=== PATIENT | male | born 1955 | race Caucasian/White ===

== ENCOUNTER 2019-12-21 08:16 | Outpatient (CLI) | payer MEDICARE, SELFPAY ==
[2019-12-21 08:49] LABS: Hemoglobin 14.2 g/dL (14.0-18.0); Mean Corpuscular HGB Conc 33.8 g/dl (32-36); Mean Corpuscular Hemoglobin 29.4 pg (26-34); Mean Platelet Volume 10.6 fl (7.4-10.4); Platelet Count Result 298 k/mm3 (150-375); Red Blood Count 4.83 M/mm3 (4.6-6.20); Red Cell Distribution Width 13.3 % (11.5-14.5); White Blood Count 8.3 K/mm3 (4.5-10.0)
[2019-12-21 09:01] LABS: Hemoglobin A1C 5.8 % (<5.7)
[2019-12-21 09:16] LABS: LDL Cholesterol Direct 130 mg/dL
[2019-12-21 09:24] LABS: Alanine Aminotransferase 19 U/L (4-50); Albumin Level 4.3 g/dL (3.5-5.1); Alkaline Phosphatase 56 U/L (38-126); Aspartate Amino Transferase 28 U/L (17-59); Bilirubin,Total 0.4 mg/dL (0.2-1.3); Blood Urea Nitrogen 26 mg/dL (9-20); Carbon Dioxide 25 mmol/L (22-30); Chloride 102 mmol/L (98-107); Cholesterol 212 mg/dL (0-200); Estimated Glomerular Filt Rate > 60; Glucose 117 mg/dL (75-110); HDL Direct 39 mg/dL; Potassium 4.6 mmol/L (3.4-5.0); Sodium 138 mmol/L (137-145); Triglycerides 216 mg/dL (<150)
== END 2019-12-21 08:17 | disposition home or self-care (01) ==
PROVIDERS: PCP Family Medicine; Visit Provider Family Medicine
DX: E11.9 Type 2 diabetes mellitus without complications (principal); I10 Essential (primary) hypertension; Z13.220 Encounter for screening for lipoid disorders; M19.90 Unspecified osteoarthritis, unspecified site
CPT/HCPCS: 36415; 80053; 80061; 83036; 85027

== ENCOUNTER 2020-06-07 12:09 | Outpatient (CLI) | payer MEDICARE, SELFPAY ==
--- NOTE | ~2020-06-07 | XR_ITS ---
EXAMINATION: XR chest 2V DATE: 06/07/2020 12:29 INDICATION: Shortness of breath. TECHNIQUE: PA and lateral views of the chest were obtained. COMPARISON: None FINDINGS: The lungs are clear with no focal airspace opacities, pulmonary edema, pleural effusion or pneumothor ax. The cardiomediastinal silhouette is normal. There are bridging osteophytes at multiple levels in the lower thoracic spine, consistent with diffuse idiopathic skeletal hyperostosis (DISH). IMPRESSION: 1. No acute cardiopulmonary disease. Reviewed, dictated and finalized at location A.
== END 2020-06-07 12:10 | disposition home or self-care (01) ==
PROVIDERS: PCP Family Medicine; Visit Provider Family Medicine
DX: R06.02 Shortness of breath (principal)
CPT/HCPCS: 71046

== ENCOUNTER 2020-07-21 09:35 | Outpatient (CLI) | payer MEDICARE, SELFPAY ==
[2020-07-21 10:11] LABS: Basophils Percent Auto 0.3 % (0.2-1.2); Eosinophils Absolute Auto 0.2 K/mm3 (0-0.3); Eosinophils Percent Auto 2.3 % (0-4.4); Hematocrit 38.1 % (42.0-52.0); Hemoglobin 12.1 g/dL (14.0-18.0); Immature Granulocyte Absolute 0.03 K/mm3 (0.00-0.031); Immature Granulocyte Percent A 0.3 % (0-0.5); Lymphocytes Absolute Auto 2.92 K/mm3 (0.9-3.2); Lymphocytes Percent Auto 28.1 % (18.3-44.2); Mean Corpuscular HGB Conc 31.8 g/dl (32-36); Mean Corpuscular Hemoglobin 26.2 pg (26-34); Mean Corpuscular Volume 82.5 fl (80-100); Mean Platelet Volume 10.7 fl (7.4-10.4); Monocytes Percent Auto 9.9 % (2.6-8.5); Neutrophils Absolute Auto 6.1 K/mm3 (1.3-6.7); Neutrophils Percent Auto 59.1 % (45.5-73.1); Platelet Count Result 340 k/mm3 (150-375); Red Blood Count 4.62 M/mm3 (4.6-6.20); Red Cell Distribution Width 14.4 % (11.5-14.5); White Blood Count 10.4 K/mm3 (4.5-10.0)
[2020-07-21 10:19] LABS: Alanine Aminotransferase 19 U/L (4-50); Albumin Level 4.5 g/dL (3.5-5.1); Alkaline Phosphatase 70 U/L (38-126); Anion Gap 12 mmol/L (8-16); Aspartate Amino Transferase 26 U/L (17-59); Bilirubin,Total 0.4 mg/dL (0.2-1.3); Blood Urea Nitrogen 17 mg/dL (9-20); Calcium 9.7 mg/dL (8.4-10.2); Carbon Dioxide 26 mmol/L (22-30); Chloride 106 mmol/L (98-107); Estimated Glomerular Filt Rate > 60; Glucose 102 mg/dL (75-110); Potassium 4.7 mmol/L (3.4-5.0); Sodium 144 mmol/L (137-145); Uric Acid 6.7 mg/dL (3.5-8.5)
[2020-07-21 10:29] LABS: Hemoglobin A1C 5.8 % (<5.7)
== END 2020-07-21 09:36 | disposition home or self-care (01) ==
LOC: ANHLAB 09:38
PROVIDERS: PCP Family Medicine; Visit Provider Physician Assistant
DX: M19.90 Unspecified osteoarthritis, unspecified site (principal); E11.9 Type 2 diabetes mellitus without complications; I10 Essential (primary) hypertension
CPT/HCPCS: 36415; 80053; 83036; 84550; 85025

== ENCOUNTER 2020-07-27 07:55 | Outpatient (CLI) | payer MEDICARE, SELFPAY ==
--- NOTE | 2020-08-02 10:01 | WPDPFTINT ---
PFT Interpretation PFT Interpretation: This PFT met all criteria for ATS standards and reproducibility FEV/FVC post bronchodilator 77% FEV1 112% FVC 100% TLC 95% RV 81% RV/TLC 32% DLCO 80% when adjusted for alveolar volume but not adjusted for hemoglobin Flow volume loops were normal Impression: This is a normal PFT. Clinical correlation is advised.
== END 2020-07-27 07:56 | disposition home or self-care (01) ==
LOC: ANHPFT 07:56
PROVIDERS: PCP Family Medicine; Visit Provider Family Medicine
DX: R06.02 Shortness of breath (principal)
CPT/HCPCS: 94060; 94726; 94729

== ENCOUNTER 2020-09-08 08:47 | Outpatient (CLI) | payer MEDICARE, SELFPAY ==
[2020-09-08 09:05] LABS: Basophils Percent Auto 0.3 % (0.2-1.2); Eosinophils Absolute Auto 0.3 K/mm3 (0-0.3); Eosinophils Percent Auto 4.5 % (0-4.4); Hematocrit 40.6 % (42.0-52.0); Immature Granulocyte Absolute 0.03 K/mm3 (0.00-0.031); Immature Granulocyte Percent A 0.4 % (0-0.5); Lymphocytes Absolute Auto 2.31 K/mm3 (0.9-3.2); Lymphocytes Percent Auto 30.2 % (18.3-44.2); Mean Corpuscular Hemoglobin 26.7 pg (26-34); Mean Corpuscular Volume 83.5 fl (80-100); Mean Platelet Volume 10.3 fl (7.4-10.4); Monocytes Absolute Auto 0.7 K/mm3 (0.1-0.6); Neutrophils Absolute Auto 4.3 K/mm3 (1.3-6.7); Neutrophils Percent Auto 55.6 % (45.5-73.1); Platelet Count Result 264 k/mm3 (150-375); Red Blood Count 4.86 M/mm3 (4.6-6.20); Red Cell Distribution Width 19.4 % (11.5-14.5); White Blood Count 7.6 K/mm3 (4.5-10.0)
[2020-09-08 09:32] LABS: Iron 82 ug/dL (49-181)
[2020-09-08 09:41] LABS: Percent Iron Saturation 23 % (20-50)
[2020-09-08 10:23] LABS: Folic Acid 15.7 ng/mL (2.76->20)
== END 2020-09-08 08:48 | disposition home or self-care (01) ==
PROVIDERS: PCP Family Medicine; Visit Provider Physician Assistant
DX: D64.9 Anemia, unspecified (principal)
CPT/HCPCS: 36415; 82607; 82746; 83540; 83550; 85025

== ENCOUNTER 2020-11-01 07:26 | Outpatient (CLI) | payer MEDICARE, SELFPAY ==
--- NOTE | 2020-11-01 08:35 | ECHO_ITS ---
Patient Info Name: Rene Montes Age: 65 years : 1955 Gender: Male Ht: 70 in Wt: 240 lbs BSA: 2.36 m2 HR: 71 bpm BP: 140 / 71 mmHg Heart Rhythm: Sinus Rhythm Technical Quality: Fair Exam Date: 11/01/2020 9:15 AM Exam Location: [facility] Pulmonary Patient Status: Emergency Admit Date: 11/01/2020 Staff Ordering Physician: Edith Higgins MD Book Sorter: Valentina Austin RDCS Attending Provider: Edith Higgins MD Referring Physician: Ronaldo LEONARD; Exam Type: CA echo dop color flow w con Study Info Indications - SOB Complete two-dimensional, color flow and Doppler transthoracic echocardiogram is performed. Summary 1. Complete two-dimensional, color flow and Doppler transthoracic echocardiogram is performed. 2. Left ventricular chamber size, wall thickness, systolic and diastolic function are normal with no regional wall motion abnormalities with an estimated ejection fraction of 55-60%. 3. No significant valve disease. 4. Normal sinus rhythm. Left Ventricle Left ventricular chamber dimension is normal. Left ventricular systolic function is normal, estimated at 55-60%. There is no increased left ventricular wall thickness. Left ventricular septal wall motion is normal. The left ventricular diastolic function is normal. Left ventricular chamber size, wall thickness, systolic and diastolic function are normal with no regional wall motion abnormalities with an estimated ejection fraction of 55-60%. Right Ventricle Right ventricular chamber dimension is normal. Right ventricular systolic function is normal. Left Atria Left atrial chamber dimension is normal. Right Atria Right atrial chamber dimension is normal. Aortic Valve The aortic valve is trileaflet. There is mild aortic valve sclerosis. There is no aortic valve stenosis. There is no aortic valve regurgitation. Pulmonic Valve The pulmonic valve is normal. There is no pulmonic valve stenosis. There is no pulmonic regurgitation. Mitral Valve The mitral valve has normal leaflets. There is no mitral valve stenosis. There is trace mitral valve regurgitation. Tricuspid Valve The tricuspid valve leaflets are normal. There is no significant tricuspid valve stenosis. There is trace tricuspid valve regurgitation. No pulmonary hypertension, estimated pulmonary arterial systolic pressure is 33 mmHg. Pericardium/Pleural The pericardium appears normal. There is no pericardial effusion. Inferior Vena Cava Normal inferior vena cava with >50% collapse upon inspiration consistent with Empty right atrial pressure, 10 mmHg. Aorta The aortic root size at the sinus of Valsalva is normal. The prox ascending aorta size is normal. Left Ventricular Outflow Tract Name Value Normal LVOT 2D LVOT Diameter 1.99 cm LVOT Doppler LVOT Peak Gradient 4 mmHg LVOT Mean Gradient 2 mmHg LVOT VTI 21.30 cm LVOT VTI/AV VTI Ratio 0.88 LVOT Stroke Volume 66.22 ml LVOT
--- NOTE | 2020-11-01 13:25 | WPDPFTINT ---
PFT Interpretation This is a methacholine challenge test. The test was performed and interpreted in accordance with the 1999 [place] [employer] guidelines. The test was performed with increasing doses of nebulized methacholine using a 2 minute tidal breathing protocol. The best post-methacholine FEV1 values were used to calculate the change from the post diluent FEV1. Findings: Baseline FEV1 3.38 L, 110% predicted. Post diluent FEV1 3.23 L Post 0.025 mg/ml methacholine FEV1 3.32 L, increased 3% Post 0.25 mg/mL methacholine FEV1 3.46 L, increased 7% Post 2.5 mg/mL methacholine FEV1 3.31 L, increased 3% Post 10 mg/mL methacholine FEV1 3.24 L, decreased 0% Post 25 mg/mL methacholine FEV1 3.09 L, decreased 4% Post albuterol nebulization FEV1 3.92 L Impression: The PC20 is greater than 25 mg/ml which is categorized as normal bronchial responsiveness. There are no prior methacholine challenge studies for comparison
== END 2020-11-01 07:27 | disposition home or self-care (01) ==
PROVIDERS: PCP Family Medicine; Visit Provider Internal Medicine Critical Care Medicine
DX: R06.02 Shortness of breath (principal)
CPT/HCPCS: 93306; 94070; J7674

== ENCOUNTER 2021-01-23 09:09 | Outpatient (CLI) | payer MEDICARE, SELFPAY ==
[2021-01-23 10:11] LABS: Hematocrit 39.3 % (42.0-52.0); Hemoglobin 12.8 g/dL (14.0-18.0); Mean Corpuscular HGB Conc 32.6 g/dl (32-36); Mean Corpuscular Hemoglobin 29.8 pg (26-34); Mean Corpuscular Volume 91.4 fl (80-100); Platelet Count Result 260 k/mm3 (150-375); Red Cell Distribution Width 14.6 % (11.5-14.5); White Blood Count 7.1 K/mm3 (4.5-10.0)
[2021-01-23 10:19] LABS: Hemoglobin A1C 5.9 % (<5.7)
[2021-01-23 10:24] LABS: Alanine Aminotransferase 22 U/L (4-50); Albumin Level 4.2 g/dL (3.5-5.1); Alkaline Phosphatase 58 U/L (38-126); Anion Gap 6 mmol/L (8-16); Aspartate Amino Transferase 25 U/L (17-59); Bilirubin,Total 0.3 mg/dL (0.2-1.3); Blood Urea Nitrogen 15 mg/dL (9-20); Calcium 9.6 mg/dL (8.4-10.2); Carbon Dioxide 29 mmol/L (22-30); Chloride 109 mmol/L (98-107); Cholesterol 209 mg/dL (0-200); Estimated Glomerular Filt Rate > 60; Glucose 141 mg/dL (75-110); HDL Direct 36 mg/dL; Potassium 5.1 mmol/L (3.4-5.0); Sodium 144 mmol/L (137-145); Triglycerides 330 mg/dL (<150); Uric Acid 5.8 mg/dL (3.5-8.5)
[2021-01-23 10:34] LABS: LDL Cholesterol Direct 117 mg/dL
[2021-01-25 18:16] LABS: PSA, Free 0.22 ng/mL; PSA, Total 0.7 ng/mL (<=4.0)
== END 2021-01-23 09:10 | disposition home or self-care (01) ==
PROVIDERS: PCP Family Medicine; Visit Provider Family Medicine
DX: R73.09 Other abnormal glucose (principal); D64.9 Anemia, unspecified; I10 Essential (primary) hypertension; E79.0 Hyperuricemia without signs of inflammatory arthritis and tophaceous disease; N40.1 Benign prostatic hyperplasia with lower urinary tract symptoms; E78.2 Mixed hyperlipidemia; E03.9 Hypothyroidism, unspecified
CPT/HCPCS: 36415; 80053; 80061; 83036; 84153; 84154; 84443; 84550; 85027

== ENCOUNTER 2021-02-23 12:04 | Outpatient (RCR) | payer MEDICARE, SELFPAY ==
--- NOTE | 2021-02-23 13:42 | PTOPEVAL ---
Thank you for referring Rene Montes to [facility].? Rene was seen for initial evaluation today to assess impairments related to stroke. He demonstrates only slight impairments with his balance on the Functional gait assessment. See summary below for detailed information. No additional therapy services required at this time. Please review, sign, date and return this evaluation/discharge summary JENNA. I agree with and certify that the following plan of care is medically necessary. Referring Physician Date Attending Provider: Sherry Rosado MD Physical therapy evaluation and discharge summary Diagnosis CVA Onset 5 Subjective Information Pt was admitted to [facility] due to Query Text:As Reported By Patient/ CVA. Family He feel his is physical and mentally slower since the stroke. Denies any falls. 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 He requires increased time to perform task. He has difficulty finding the correct words. He also c/o fatigue with activities. 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 Requires A x 2 to lift her for transfers to/from Pain Assessment Self Report Pain Level 0 Lower Extremity Muscle Strength Testing General Lower Extremity Strength Reason Not Measured WNL/Left,WNL/Right Gross Lower Extremity Strength grossly 5/5 except hip abd 3+/ 5 Upper Extremity Muscle Strength Testing General Upper Extremity Strength Reason Not Measured WNL/Left,WNL/Right Gross Upper Extremity Strength Comments grossly 5/5 Transfer Assessment Chair Transfer Assessment Ambulation Assistive Devices None Ability to Transfer In/Out of Chair Independent Floor Transfer Assessment Ambulation Assistive Devices None Stand to Floor Transfer Ability Independent Floor to Stand Transfer Ability Independent Floor Transfer Ability Independent Balance Assessment BETANCUR Balance Evaluation Total Score (55/56 points) Time Up Go (TUG) Timed Up and Go Test (TUG) (Seconds) 12 Assistive Devices None Functional Gait Assessment Gait Level Surface Mild Impairment Change in Gait Speed Normal Gait with Horizontal Head Turns Mild Impairment Gait with Verticle Head Turns Mild Impairment Gait and Pivot Turn Normal Steps Over Obstacles Normal Gait With Narrow Base of Support Normal Gait With Eyes Closed Mild Impairment Ambulating Backwards Normal Steps Normal Total Score (26/30) Gait Assessment G
== END 2021-02-26 10:35 | disposition home or self-care (01) ==
LOC: ANHPT 12:04
PROVIDERS: PCP Family Medicine; Visit Provider Family Medicine
DX: I63.9 Cerebral infarction, unspecified (principal)
CPT/HCPCS: 97110; 97161

== ENCOUNTER 2021-05-11 08:01 | Outpatient (CLI) | payer MEDICARE, SELFPAY ==
[2021-05-11 08:51] LABS: Alanine Aminotransferase 27 U/L (4-50); Aspartate Amino Transferase 27 U/L (17-59)
== END 2021-05-11 08:02 | disposition home or self-care (01) ==
PROVIDERS: PCP Family Medicine; Visit Provider Physician Assistant
DX: E78.2 Mixed hyperlipidemia (principal); Z79.899 Other long term (current) drug therapy
CPT/HCPCS: 36415; 84450; 84460

== ENCOUNTER 2021-12-15 07:09 | Outpatient (CLI) | payer MEDICARE, SELFPAY ==
[2021-12-15 07:54] LABS: Alanine Aminotransferase 30 U/L (4-50); Albumin Level 4.2 g/dL (3.5-5.1); Alkaline Phosphatase 61 U/L (38-126); Anion Gap 7 mmol/L (8-16); Aspartate Amino Transferase 28 U/L (17-59); Bilirubin,Total 0.4 mg/dL (0.2-1.3); Blood Urea Nitrogen 17 mg/dL (9-20); Calcium 9.2 mg/dL (8.4-10.2); Carbon Dioxide 24 mmol/L (22-30); Chloride 107 mmol/L (98-107); Cholesterol 139 mg/dL (0-200); Estimated Glomerular Filt Rate > 60; Glucose 116 mg/dL (65-110); HDL Direct 38 mg/dL; Potassium 4.7 mmol/L (3.4-5.0); Sodium 138 mmol/L (137-145); Triglycerides 141 mg/dL (<150)
[2021-12-15 07:55] LABS: Hemoglobin A1C 5.9 % (<5.7)
[2021-12-15 08:05] LABS: LDL Cholesterol Direct 61 mg/dL
[2021-12-15 08:14] LABS: Basophils Percent Auto 0.2 % (0.2-1.2); Eosinophils Absolute Auto 0.5 K/mm3 (0-0.3); Eosinophils Percent Auto 6.5 % (0-4.4); Hematocrit 46.3 % (42.0-52.0); Hemoglobin 15.1 g/dL (14.0-18.0); Immature Granulocyte Absolute 0.04 K/mm3 (0.00-0.031); Immature Granulocyte Percent A 0.5 % (0-0.5); Lymphocytes Absolute Auto 2.83 K/mm3 (0.9-3.2); Lymphocytes Percent Auto 34.9 % (18.3-44.2); Mean Corpuscular HGB Conc 32.6 g/dl (32-36); Mean Corpuscular Hemoglobin 30.9 pg (26-34); Mean Corpuscular Volume 94.7 fl (80-100); Mean Platelet Volume 10.9 fl (7.4-10.4); Monocytes Absolute Auto 0.7 K/mm3 (0.1-0.6); Monocytes Percent Auto 8.4 % (2.6-8.5); Neutrophils Percent Auto 49.5 % (45.5-73.1); Platelet Count Result 238 k/mm3 (150-375); Red Blood Count 4.89 M/mm3 (4.6-6.20); Red Cell Distribution Width 13.5 % (11.5-14.5); White Blood Count 8.1 K/mm3 (4.5-10.0)
[2021-12-15 08:25] LABS: Thyroid Stimulating Hormone 0.993 uIU/mL (0.465-4.680)
[2021-12-19 19:51] LABS: PSA, Free 0.29 ng/mL; PSA, Total 0.8 ng/mL (<=4.0)
== END 2021-12-15 07:10 | disposition home or self-care (01) ==
LOC: ANHLAB 07:11
PROVIDERS: PCP Family Medicine; Visit Provider Family Medicine
DX: E11.9 Type 2 diabetes mellitus without complications (principal); E78.2 Mixed hyperlipidemia; I10 Essential (primary) hypertension; E03.9 Hypothyroidism, unspecified; N40.1 Benign prostatic hyperplasia with lower urinary tract symptoms
CPT/HCPCS: 36415; 80053; 80061; 83036; 84153; 84154; 84443; 85025

== ENCOUNTER 2022-01-22 15:03 | Outpatient (CLI) | payer MEDICARE, SELFPAY ==
--- NOTE | ~2022-01-22 | XR_ITS ---
EXAM: XR foot LT 2V HISTORY: M79.672 - Pain in left foot COMPARISON: None available FINDINGS: Mild hallux valgus and degenerative change at the first MTP. Plantar and Achilles enthesop athy. No acute fracture. No dislocation. No large ankle joint effusion. Somewhat high appearing arch. IMPRESSION: No acute osseous finding in the left foot. Reviewed, dictated and finalized at location K.
== END 2022-01-22 15:04 | disposition home or self-care (01) ==
LOC: ANHIMG 15:05
PROVIDERS: PCP Family Medicine; Visit Provider Nurse Practitioner Gerontology
DX: M79.672 Pain in left foot (principal)
CPT/HCPCS: 73620

== ENCOUNTER 2022-07-01 14:18 | Outpatient (CLI) | payer MEDICARE, SELFPAY ==
--- NOTE | ~2022-07-01 | XR_ITS ---
XR thoracic spine 3V DATE: 07/01/2022 14:55 INDICATION: Back pain. No injury. TECHNIQUE: AP, lateral, swimmer views COMPARISON: None FINDINGS: There is prominent degenerative disc disease at C4-5, C5-6 and C6-7. There is diffuse idiopathic skeletal hyperostosis of the thoracic spine. There is mild dextroscoliosis of the thoracolumbar spine. No thoracic spine fracture or bone destruction is evident. The thoracic pedicles are intact. No eddie lonnie soft tissue thickening. IMPRESSION: Mild dextroscoliosis Diffuse idiopathic skeletal hyperostosis of the thoracic spine Severe degenerative disc disease in the mid and lower cervical spine Reviewed, dictated and finalized at location B.
--- NOTE | ~2022-07-01 | XR_ITS ---
XR lumbar spine 2-3V 07/01/2022 14:55 Indication: Back pain Procedure: 3 views lumbar spine Comparison: No prior studies for comparison. Findings: Normal lumbar lordosis. There is grade 1 degenerative spondylolisthesis at L4-5. There is d isc narrowing at L2-3, L3-4 and L5-S1. There is moderate lower lumbar facet hypertrophy. No acute fra cture or traumatic malalignment. There are wedge-shaped deformities of the T11-L1 vertebra, likely ch ronic. There is atherosclerosis. Impression: 1: Moderate lumbar spondylosis. Reviewed, dictated and finalized at location A. Impression: 1: Moderate lumbar spondylosis.
== END 2022-07-01 14:19 | disposition home or self-care (01) ==
PROVIDERS: PCP Family Medicine; Visit Provider Physician Assistant
DX: M47.896 Other spondylosis, lumbar region (principal); M50.30 Other cervical disc degeneration, unspecified cervical region
CPT/HCPCS: 72072; 72100

== ENCOUNTER 2022-07-04 10:14 | Outpatient (CLI) | payer MEDICARE, SELFPAY ==
--- NOTE | ~2022-07-04 | US_ITS ---
US soft tissue lower back 07/04/2022 10:53 Indication: Palpable abnormality of the back Procedure: High-resolution ultrasound of the lower back in the area of palpable concern Comparison: No prior studies for comparison. Findings: Near the area of palpable concern there is an oval hyperechoic mass measuring 9 x 4 x 7 mm without internal vascularity or posterior features, most likely benign lipoma. No other discrete mass identified. Impression: 1: Probable benign oval hyperechoic mass near the area of palpable concern measuring 9 x 4 x 7 mm, mo st likely lipoma. Recommend follow-up ultrasound if there are changes by clinical examination. Reviewed, dictated and finalized at location A. Impression: 1: Probable benign oval hyperechoic mass near the area of palpable concern gregory uring 9 x 4 x 7 mm, most likely lipoma. Recommend follow-up ultrasound if there are changes by clinical examination.
== END 2022-07-04 10:15 | disposition home or self-care (01) ==
PROVIDERS: PCP Family Medicine; Visit Provider Physician Assistant
DX: R22.2 Localized swelling, mass and lump, trunk (principal)
CPT/HCPCS: 76705

== ENCOUNTER 2022-07-16 09:26 | Outpatient (CLI) | payer MEDICARE, SELFPAY ==
--- NOTE | 2022-07-16 11:30 | NEURO_ITS ---
Impression: # Complains of foot pain. # Normal nerve conduction study. # Normal needle/EMG exam. # Clinical correlation recommended. Nerve Conduction Studies Anti Sensory Summary Table Stim Site NR Peak (ms) P-T Amp (?V) Site1 Site2 Delta-P (ms) Dist (cm) Grupo (m/s) Left Sup Fibular Anti Sensory (Ant Lat Mall) 14 cm 3.4 15.5 14 cm Ant Lat Mall 3.4 16.0 47 Right Sup Fibular Anti Sensory (Ant Lat Mall) 14 cm 3.5 17.3 14 cm Ant Lat Mall 3.5 16.0 46 Left Sural Anti Sensory (Lat Mall) Calf 3.5 6.5 Calf Lat Mall 3.5 16.0 46 Right Sural Anti Sensory (Lat Mall) Calf 3.7 17.3 Calf Lat Mall 3.7 16.0 43 Motor Summary Table Stim Site NR Onset (ms) O-P Amp (mV) Site1 Site2 Delta-0 (ms) Dist (cm) Grupo (m/s) Left Lateral Plantar Motor (ADM) Med Mall 4.6 1.2 Right Lateral Plantar Motor (ADM) Med Mall 4.7 0.8 Left Peroneal Motor (Vastus Med) Ankle 4.1 0.9 Popit Ankle 9.7 42.0 43 Popit 13.8 1.0 Right Peroneal Motor (Vastus Med) Ankle 4.1 2.2 Popit Ankle 8.9 40.0 45 Popit 13.0 2.0 Left Tibial Motor (Abd Gross Brev) Ankle 4.7 3.4 Knee Ankle 9.9 43.0 43 Knee 14.6 1.9 Right Tibial Motor (Abd Gross Brev) Ankle 4.5 3.9 Knee Ankle 10.3 41.0 40 Knee 14.8 4.1 F Wave Studies NR F-Lat (ms) L-R F-Lat (ms) Left Peroneal (Mrkrs) (EDB) 57.19 0.58 Right Peroneal (Mrkrs) (EDB) 57.78 0.58 Left Tibial (Mrkrs) (Abd Hallucis) 58.09 0.46 Right Tibial (Mrkrs) (Abd Hallucis) 58.56 0.46 EMG Side Muscle Nerve Root Ins Act Fibs Amp Dur Recrt Comment Right AntTibialis Dp Br Fibular L4-5 Nml Nml Nml Nml Nml Right Gastroc Tibial S1-2 Nml Nml Nml Nml Nml Right Fibularis Long Sup Br Fibular L5-S1 Nml Nml Nml Nml Nml Right Flex Dig Long Tibial L5-S2 Nml Nml Nml Nml Nml Right Ext Dig Brev Dp Br Fibular L5, S1 Nml Nml Nml Nml Nml Left AntTibialis Dp Br Fibular L4-5 Nml Nml Nml Nml Nml Left Gastroc Tibial S1-2 Nml Nml Nml Nml Nml Left Fibularis Long Sup Br Fibular L5-S1 Nml Nml Nml Nml Nml Left Flex Dig Long Tibial L5-S2 Nml Nml Nml Nml Nml Left Ext Dig Brev Dp Br Fibular L5, S1 Nml Nml Nml Nml Nml MTDD
== END 2022-07-16 09:27 | disposition home or self-care (01) ==
LOC: ANHNEURO 09:32
PROVIDERS: PCP Family Medicine; Visit Provider Podiatrist Foot & Ankle Surgery
DX: G57.51 Tarsal tunnel syndrome, right lower limb (principal); G57.52 Tarsal tunnel syndrome, left lower limb
CPT/HCPCS: 95886; 95911

== ENCOUNTER → 2022-11-26 13:18 | Outpatient (CLI) | payer MEDICARE, SELFPAY ==
--- NOTE | ~2022-11-26 | MR_ITS ---
EXAMINATION: MR lumbar spine wo con DATE: 11/26/2022 13:49 INDICATION: Low back pain with radiculopathy. TECHNIQUE: Magnetic resonance imaging (MRI) of the lumbar spine was performed without intravenous con trast. Sequences included sagittal T2-weighted FSE, sagittal T2-weighted FS FSE, sagittal T1-weighted FSE, and axial T2-weighted FSE. COMPARISON: Lumbar spine radiographs 07/01/2022 FINDINGS: There is 7 degrees levocurvature of lumbar spine. There is 3 mm retrolisthesis of L2 on L3 and L3 on L4. There is mild chronic anterior wedging of T11-L1 vertebral bodies. Schmorl's nodes. The re is mildly decreased disc height at L1-L2, moderately decreased disc height at L2-L3 and L3-L4, and mildly decreased disc height at L5-S1. The distal spinal cord signal intensity is normal. The conus medullaris is at L1. There is ligamentum flavum hypertrophy at the disc levels from L2-L3 through L4- L5. The following disc levels are specifically discussed: L1-L2: The disc is bulging. There is severe bilateral facet joint osteoarthritis. There is no neural foraminal stenosis. There is no central canal stenosis. L2-L3: The disc is bulging. There is moderate bilateral facet joint osteoarthritis. There is mild rig ht and moderate left neural foraminal stenosis. There is mild central canal stenosis. L3-L4: The disc is bulging and has an annular fissure. There is severe bilateral facet joint osteoart hritis. There is mild right and moderate left neural foraminal stenosis. There is mild central canal stenosis. L4-L5: The disc does not extend beyond the endplate margin. There is severe bilateral facet joint ost eoarthritis. There is mild bilateral neural foraminal stenosis. There is no central canal stenosis. L5-S1: The disc is bulging. There is severe bilateral facet joint osteoarthritis. There is mild bilat eral neural foraminal stenosis. There is mild central canal stenosis. IMPRESSION: 1. Moderate lumbar spondylosis. Reviewed, dictated and finalized at location A. LVN
== END ==
PROVIDERS: PCP Family Medicine; Visit Provider Nurse Practitioner Gerontology
DX: M48.14 Ankylosing hyperostosis [Forestier], thoracic region (principal); R22.2 Localized swelling, mass and lump, trunk; M54.50 Low back pain, unspecified
CPT/HCPCS: 72148

== ENCOUNTER 2023-01-06 07:50 | Outpatient (CLI) | payer MEDICARE, SELFPAY ==
[2023-01-06 08:29] LABS: Basophils Percent Auto 0.2 % (0.2-1.2); Eosinophils Absolute Auto 0.4 K/mm3 (0-0.3); Eosinophils Percent Auto 4.2 % (0-4.4); Hemoglobin 14.5 g/dL (14.0-18.0); Immature Granulocyte Absolute 0.04 K/mm3 (0.00-0.031); Immature Granulocyte Percent A 0.4 % (0-0.5); Lymphocytes Absolute Auto 1.33 K/mm3 (0.9-3.2); Lymphocytes Percent Auto 12.6 % (18.3-44.2); Mean Corpuscular Volume 90.9 fl (80-100); Mean Platelet Volume 10.5 fl (7.4-10.4); Neutrophils Absolute Auto 7.7 K/mm3 (1.3-6.7); Neutrophils Percent Auto 73.6 % (45.5-73.1); Platelet Count Result 266 k/mm3 (150-375); Red Blood Count 4.84 M/mm3 (4.6-6.20); Red Cell Distribution Width 14.5 % (11.5-14.5); White Blood Count 10.5 K/mm3 (4.5-10.0)
[2023-01-06 09:04] LABS: Alanine Aminotransferase 37 U/L (6-50); Albumin Level 4.1 g/dL (3.5-5.1); Alkaline Phosphatase 66 U/L (38-126); Anion Gap 8 mmol/L (8-16); Aspartate Amino Transferase 50 U/L (17-59); Bilirubin,Total 0.5 mg/dL (0.2-1.3); Blood Urea Nitrogen 18 mg/dL (9-20); Calcium 9.3 mg/dL (8.4-10.2); Carbon Dioxide 27 mmol/L (22-30); Chloride 108 mmol/L (98-107); Cholesterol 115 mg/dL (0-200); Estimated Glomerular Filt Rate > 60; Glucose 110 mg/dL (65-110); HDL Direct 39 mg/dL; Hemoglobin A1C 6.1 % (<5.7); Potassium 4.9 mmol/L (3.4-5.0); Sodium 143 mmol/L (137-145); Triglycerides 117 mg/dL (<150)
[2023-01-06 09:14] LABS: LDL Cholesterol Direct 50 mg/dL
== END 2023-01-06 07:51 | disposition home or self-care (01) ==
PROVIDERS: PCP Family Medicine; Visit Provider Physician Assistant
DX: D64.9 Anemia, unspecified (principal); E11.9 Type 2 diabetes mellitus without complications; I10 Essential (primary) hypertension; I65.29 Occlusion and stenosis of unspecified carotid artery
CPT/HCPCS: 36415; 80053; 80061; 83036; 85025

== ENCOUNTER 2023-03-31 14:36 | Emergency (ER) | payer MEDICARE, SELFPAY ==
[2023-03-31] VITALS (8 sets, daily range): BP systolic 114–167; BP diastolic 69–76; PULSE 56–63; RESP 14–18; TEMP 36.2; O2SAT 96–100
--- NOTE | ~2023-03-31 | XR_ITS ---
XR chest 1V portable 03/31/2023 15:01 Indication: Chest pain. Procedure: AP portable chest Comparison: 06/07/2020 Findings: Borderline heart size. There are bilateral interstitial infiltrates throughout both lungs. No pleural effusion or pneumothorax. No acute osseous abnormality. Impression: 1: Diffuse bilateral interstitial infiltrates which may represent pneumonia or edema. Reviewed, dictated and finalized at location [] Impression: 1: Diffuse bilateral interstitial infiltrates which may represent pneumonia or edema.
--- NOTE | 2023-03-31 14:37 | ECG_ITS ---
Measurements Intervals [place] Rate: 61 P: 63 [place]: 180 QRS: 24 QRSD: 93 T: 35 QT: 426 QTc: 430 Interpretive Statements SINUS RHYTHM LOW QRS VOLTAGE IN THE LIMB LEADS OTHERWISE UNREMARKABLE ECG NO PREVIOUS ECG AVAILABLE FOR COMPARISON Electronically Signed On 03-31-2023 16:10:18 CDT by Yosvany Hoyt M.D.
[2023-03-31 15:00] LABS: Basophils Percent Auto 0.2 % (0.2-1.2); Eosinophils Absolute Auto 0.7 K/mm3 (0-0.3); Eosinophils Percent Auto 7.7 % (0-4.4); Hematocrit 42.6 % (42.0-52.0); Immature Granulocyte Absolute 0.03 K/mm3 (0.00-0.031); Immature Granulocyte Percent A 0.3 % (0-0.5); Lymphocytes Absolute Auto 2.62 K/mm3 (0.9-3.2); Lymphocytes Percent Auto 30.1 % (18.3-44.2); Mean Corpuscular HGB Conc 32.9 g/dl (32-36); Mean Corpuscular Hemoglobin 30.5 pg (26-34); Mean Corpuscular Volume 92.8 fl (80-100); Monocytes Absolute Auto 0.9 K/mm3 (0.1-0.6); Monocytes Percent Auto 10.1 % (2.6-8.5); Neutrophils Absolute Auto 4.5 K/mm3 (1.3-6.7); Neutrophils Percent Auto 51.6 % (45.5-73.1); Platelet Count Result 245 k/mm3 (150-375); Red Blood Count 4.59 M/mm3 (4.6-6.20); Red Cell Distribution Width 13.8 % (11.5-14.5); White Blood Count 8.7 K/mm3 (4.5-10.0)
[2023-03-31] MEDS: ASPIRIN 81 MG CHEWABLE TABLET 324 MG PO (15:02)
[2023-03-31 15:10] LABS: Alanine Aminotransferase 26 U/L (6-50); Albumin Level 4.3 g/dL (3.5-5.1); Alkaline Phosphatase 69 U/L (38-126); Anion Gap 5 mmol/L (8-16); Aspartate Amino Transferase 31 U/L (17-59); Bilirubin,Total 0.6 mg/dL (0.2-1.3); Blood Urea Nitrogen 22 mg/dL (9-20); Calcium 9.1 mg/dL (8.4-10.2); Carbon Dioxide 27 mmol/L (22-30); Chloride 107 mmol/L (98-107); Estimated CRCL calculation 69 ml/min; Estimated Glomerular Filt Rate > 60; Glucose 92 mg/dL (65-110); Lipase 151 U/L (23-300); Potassium 4.4 mmol/L (3.4-5.0); Sodium 139 mmol/L (137-145)
[2023-03-31 15:12] LABS: Prothrombin Time 13.4 Seconds (11.1-14.7)
[2023-03-31 15:13] LABS: Partial Thromboplastin Time 27.4 SECONDS (22.3-36.8)
[2023-03-31 15:22] LABS: Troponin I < 0.012 ng/mL (0.000-0.034)
--- NOTE | 2023-03-31 15:57 | ED.GENADULT ---
HPI - General Adult General Chief complaint: Arrhythmia/Palpitations Stated complaint: ekg changes Time Seen by Provider: 03/31/23 15:04 History of Present Illness HPI narrative: Patient is a 68-year-old male who presents to the ER with reports of chest pain. He was referred here by his PCP. Apparently he has had some chest discomfort the last 2 weeks. Last for 15 seconds at a time. Today it went to his left arm. No history of heart disease. He has had a CVA in the past. Denies runny nose or sore throat or productive cough. He did have a bad viral illness a month ago. No pain with deep breath. No exertional decline. Related Data Allergies Allergy/AdvReac Type Severity Reaction Status Date / Time No Known Allergies Allergy Verified 03/31/23 13:43 Review of Systems Review of Systems: All systems reviewed & are unremarkable except as noted in HPI and below Constitutional: Constitutional: Denies chills, Denies fatigue and Denies fever(s) ENT: Denies nasal congestion and Denies sore throat Cardiovascular: Cardiovascular: Reports chest pain, Denies rapid heart rate and Denies radiating jaw, neck or arm pain Respiratory: Respiratory: Denies cough and Denies dyspnea Gastrointestinal: Gastrointestinal: Denies abdominal pain, Denies nausea and Denies vomiting PMF Past Medical History Medical History Arthritis Arthritis of both knees Bronchitis Chronic pain disorder Diabetes mellitus Elevated BP without diagnosis of hypertension Elevated glucose Essential (primary) hypertension Excessive daytime sleepiness HTN (hypertension) Hyperlipidemia MDD (major depressive disorder), recurrent episode, moderate Opioid dependence Palpable mass Palpable mass of lower back Pharyngitis Sinusitis SOBOE (shortness of breath on exertion) Type 2 diabetes mellitus without complication, without long-term current use of insulin Surgical History Surgical History S/P total knee arthroplasty Family History Family History Father Family history of cardiovascular disease, Onset Age: 77 Other Family history of liver disease Social History Social History Social History: Smoking packs per day: 1 Smoking cigarettes per day: 20.0 Years smoked: 10 Smoking pack-years: 10.00 Smoking status: Former smoker Tobacco type: cigarettes Second hand tobacco smoke exposure: No Smoking end date: 10/13/82 Alcohol intake: never Substance use: never Substance use type: does not use Lack of Transportation: No Lack of Food: Never True Current Housing: I Have Housing Concerned About Future Housing: No Difficulty Paying Gas/Electric Bills: No Difficulty Paying for Meds: No Currently Unemployed: YES Education: Decline to Answer Difficulty w/ Childcare or Family Care: No Living arrangements: with family Occupation/Education: retired Gender identity (if verbalized by the patient): Male Sexual Orientation (if Verbalized by the Patient): Straight or Heterosexual Exam Narrative: GENERAL: Well-appearing, well-nourished, and in no acute distress. HEAD: Normocephalic, atraumatic. EYES: PERRL and EOMI. ENT: Mucous membranes moist. CHEST: Clear to auscultation. No respiratory distress. HEART: Regular rate and rhythm. Normal peripheral pulses. ABDOMEN: Soft, nontender, nondistended. EXTREMITIES: Normal range of motion. No edema. SKIN: Warm, dry, no rash. NEURO: Alert and oriented x3. PSYCH: Normal mood and affect. Course Course Emergency Course: Patient resting comfortably. No pain here. Troponin negative. EKG with sinus bradycardia with some nonspecific T wave inversion/flattening V1 through V3. Patient's story is very atypical. Leroy appropriate for discharge home an
[2023-03-31 16:14] LABS: NT Pro B Type Natriuretic Pept 40 pg/mL (19.9-100)
== END 2023-03-31 17:35 | disposition home or self-care (01) ==
PROVIDERS: Emergency Provider Emergency Medicine; PCP Family Medicine
DX: R07.89 Other chest pain (principal); E11.9 Type 2 diabetes mellitus without complications; E78.5 Hyperlipidemia, unspecified; I10 Essential (primary) hypertension; M17.0 Bilateral primary osteoarthritis of knee; Z96.659 Presence of unspecified artificial knee joint; Z86.73 Personal history of transient ischemic attack (TIA), and cerebral infarction without residual deficits; Z87.891 Personal history of nicotine dependence; Z79.82 Long term (current) use of aspirin; R91.8 Other nonspecific abnormal finding of lung field
CPT/HCPCS: 36415; 71045; 80053; 83690; 83880; 84484; 85025; 85610; 85730; 93005; 99284; A9270

== ENCOUNTER 2023-05-06 09:13 | Outpatient (CLI) | payer MEDICARE, SELFPAY ==
--- NOTE | ~2023-05-06 | NM_ITS ---
EXAMINATION: NM jasmyne stress w perfusion DATE: 05/06/2023 11:19 INDICATION: Chest pain TECHNIQUE: Rest images were obtained following intravenous administration of 9.8 mCi Tc99m tetrofosmi n (Myoview). The patient was infused intravenously with Lexiscan (Regadenoson). Then, 31.3 mCi Tc99m tetrofosmin (Myoview) was administered intravenously, and stress images were obtained. Data was recon structed into short axis and horizontal and vertical long axis SPECT images. Gated SPECT images were also obtained. COMPARISON: None. FINDINGS: There is no definite reversible or fixed perfusion abnormality to suggest ischemia or infar ction. There is normal left ventricular chamber size, wall motion and ejection fraction. Left ventr icular ejection fraction measures 69%. IMPRESSION: 1. Normal myocardial perfusion at rest and during stress. 2. Left ventricular ejection fraction measuring 69%. Reviewed, dictated and finalized at location A.
--- NOTE | 2023-05-06 09:23 | EST_ITS ---
Patient Info Name: Rene Montes Age: 68 years : 1955 Gender: Male Ht: 70 in Wt: 240 lbs BSA: 2.36 m2 HR: 56 bpm BP: 140 / 73 mmHg Heart Rhythm: Sinus Rhythm Exam Date: 05/06/2023 10:18 AM Exam Location: [facility] Stress Patient Status: Outpatient Admit Date: 05/06/2023 Staff Ordering Physician: Cinthya Lara PA-C Attending Provider: Cinthya Lara PA-C Exercise Technologist: Nickie Lai CT Exercise Physician: Alfa Mccord DO Exam Type: CA stress test treadmill w NM Study Info Indications R07.9 - Chest pain, unspecified A nuclear stress test was performed. Summary 1. 1. Negative Elmer exercise stress test for ischemic ST changes by ECG criteria. 2. 2. Reduced functional capacity, achieving 7 METs of workload. 3. 3. Appropriate HR response to exercise. 4. 4. Appropriate HR recovery at 1 minute post exercise. 5. 5. Nuclear scan to follow and will be reported separately. Please correlate with it. 6. 6. Patient informed of the above results. Protocol: Elmer Stress ECG Details Stage: REST Duration (min): 1 min : 2 sec Speed (mph): 0.0 Grade (%): 0 HR (bpm): 58 SBP (mmHg): 140 DBP (mmHg): 73 METS: --- Stage: REST Duration (min): 12 min : 13 sec Speed (mph): 0.0 Grade (%): 0 HR (bpm): 65 SBP (mmHg): 140 DBP (mmHg): 73 METS: --- Stage: STAGE 1 Duration (min): 1 min : 0 sec Speed (mph): 1.7 Grade (%): 10 HR (bpm): 82 SBP (mmHg): 140 DBP (mmHg): 73 METS: --- Stage: STAGE 1 Duration (min): 2 min : 0 sec Speed (mph): 1.7 Grade (%): 10 HR (bpm): 93 SBP (mmHg): 140 DBP (mmHg): 73 METS: --- Stage: STAGE 1 Duration (min): 3 min : 0 sec Speed (mph): 1.7 Grade (%): 10 HR (bpm): 95 SBP (mmHg): 182 DBP (mmHg): 80 METS: --- Stage: STAGE 2 Duration (min): 1 min : 0 sec Speed (mph): 2.5 Grade (%): 12 HR (bpm): 106 SBP (mmHg): 182 DBP (mmHg): 80 METS: --- Stage: STAGE 2 Duration (min): 2 min : 0 sec Speed (mph): 2.5 Grade (%): 12 HR (bpm): 123 SBP (mmHg): 199 DBP (mmHg): 96 METS: --- Stage: STAGE 2 Duration (min): 2 min : 19 sec Speed (mph): 2.5 Grade (%): 12 HR (bpm): 128 SBP (mmHg): 199 DBP (mmHg): 96 METS: --- Stage: RECOVERY Duration (min): 0 min : 40 sec Speed (mph): 0.0 Grade (%): 0 HR (bpm): 113 SBP (mmHg): 199 DBP (mmHg): 96 METS: --- Stage: RECOVERY Duration (min): 1 min : 40 sec Speed (mph): 0.0 Grade (%): 0 HR (bpm): 93 SBP (mmHg): 199 DBP (mmHg): 96 METS: --- Stage: RECOVERY Duration (min): 2 min : 40 sec Speed (mph): 0.0 Grade (%): 0 HR (bpm): 80 SBP (mmHg): 199 DBP (mmHg): 96 METS: --- Stage: RECOVERY Duration (min): 3 min : 14 sec Speed (mph): 0.0 Grade (%): 0 HR (bpm): 79 SBP (mmHg): 196 DBP (mmHg): 82 METS: --- Rest HR: 65 bpm Peak HR: 128 bpm Rest Sys BP: 140 mmHg Peak Sys BP: 199 mmHg Max Pred HR: 151 bpm % Max Pred HR
== END 2023-05-06 09:14 | disposition home or self-care (01) ==
LOC: ANHCARD 09:18
PROVIDERS: PCP Family Medicine; Visit Provider Physician Assistant
DX: R07.9 Chest pain, unspecified (principal)
CPT/HCPCS: 78452; 93017; A9502

== ENCOUNTER 2024-03-01 13:26 | Outpatient (CLI) | payer MEDICARE, SELFPAY ==
--- NOTE | ~2024-03-01 | XR_ITS ---
XR sacrum coccyx min 2V DATE: 03/01/2024 13:40 INDICATION: Sacrococcygeal disorder TECHNIQUE: AP, angled AP and lateral views of sacrum and coccyx COMPARISON: None FINDINGS: Normal alignment at the pubic symphysis and sacroiliac joints. No sacral fracture or bone d estruction is detected. There is extensive calcification of the included distal abdominal aorta and common iliac arteries. IMPRESSION: No significant abnormality of sacrum or coccyx Reviewed, dictated and finalized at location B.
== END 2024-03-01 13:27 ==
LOC: MICIMG 13:28
PROVIDERS: PCP Family Medicine; Visit Provider Physician Assistant
DX: G89.29 Other chronic pain (principal); M53.3 Sacrococcygeal disorders, not elsewhere classified
CPT/HCPCS: 72220

== ENCOUNTER 2024-07-15 08:55 | Outpatient (CLI) | payer MEDICARE, SELFPAY ==
--- NOTE | ~2024-07-15 | XR_ITS ---
Supine and upright views of the abdomen Clinical history: Abdominal pain Findings: Bowel gas pattern is nonspecific. No evidence for obstruction or free air. 6 mm round calci fication projects just lateral to the left L3 transverse process.. Osseous structures are intact. Impression: Indeterminate 6 mm calcification the left abdomen, as above. Ureteral stone is a potential considerat ion. Reviewed, dictated and finalized at location . Impression: Indeterminate 6 mm calcification the left abdomen, as above. Ureteral stone is a potential consideration.
== END 2024-07-15 08:56 | disposition home or self-care (01) ==
PROVIDERS: PCP Family Medicine; Visit Provider Physician Assistant
DX: R10.9 Unspecified abdominal pain (principal)
CPT/HCPCS: 74018

== ENCOUNTER 2024-07-23 14:20 | Outpatient (CLI) | payer MEDICARE, SELFPAY ==
--- NOTE | ~2024-07-23 | CT_ITS ---
CLINICAL INDICATION: Abdominal pain. COMPARISON: None. Reference is made to a plain film evaluation of the abdomen dated 07/15/2024. TECHNIQUE: Computed tomography (CT) of the abdomen and pelvis was performed without intravenous contr ast. The dose-length product was 1383.34 mGy-cm. FINDINGS/OBSERVATIONS: Visualized lower thorax:The bilateral lung bases are clear. The heart is of normal size, without pericardial effusion. Coronary artery calcifications are present. A small hiatal hernia is noted. Liver: Punctate calcifications within the liver suggesting prior granulomatous disease. The liver is not enlarged measuring 17 cm in longitudinal dimension. The contour of the liver is smooth. Gallbladder and biliary system: The gallbladder is decompressed, limiting its evaluation. No calcified stones or surrounding inflammatory change is appreciated. Pancreas: Limited evaluation of the pancreas secondary to the lack of intravenous contrast. No ductal dilatation is present. Spleen: Punctate calcifications within the spleen suggesting prior granulomatous disease. Kidneys: No hydronephrosis or renal calculi. Adrenal glands: Unremarkable Gastrointestinal tract: Hazy infiltration of the mesentery within the mid to upper abdomen. Rectosigmoid diverticulosis without surrounding inflammatory change. Appendix:The appendix is not definitively visualized. However, no pericecal inflammatory change is id entified suggest the presence of acute appendicitis. Vasculature: Retroaortic left renal vein is incidentally noted. Densely calcified atherosclerotic disease within the abdominal aorta and pelvis without aneurysmal di latation Lymph nodes: Scattered nonpathologically enlarged lymph nodes within the retroperitoneum. Multiple enlarged lymph nodes within the hazy mesentery, in the cielo hepatis, in the right and left gastro-omental position, as well as within the peripancreatic position. The largest lymph node is within the left gastro-omental position (series 3, image 58) measuring 13 m m in short axis dimension. Pelvic structures:The bladder is only minimally distended. A small bladder diverticulum within the right hemipelvis is present. Body wall and musculoskeletal: Fat-containing left inguinal hernia. Severe degenerative disease within the lower thoracic and lumbosacral spine, with osteophyte formatio n, disc space narrowing, endplate changes and vacuum phenomenon. Small fat-containing umbilical hernia. IMPRESSION: Hazy infiltration of the mesentery, for which the differential diagnosis is broad. 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 The largest lymph node (the left gastro-omental lymph node) is amenable to percutaneous biopsy (altho ugh by a transhepatic route) for which other modalities should be exhausted first for determination o f diagnoses. Additional findings within the liver and spleen suggesting prior granulomatous disease. Remainder of nonspecific findings are detailed above. Reviewed, dictated and finalized at location A. IMPRESSION: Hazy infiltration of the mesentery, for which the differential diagnosis is bro ad. 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 The largest lymph node (the left gastro-omental lymph node) is amenable to perc utaneous biopsy (although by a transhepatic route) for which other modalities s hould be exhausted first for determination of diagnoses. Additional findings within the liver and spleen suggesting prior granulomatous disease. Remainder of nonspecific findings are detailed above.
== END 2024-07-23 14:21 | disposition home or self-care (01) ==
LOC: ANHIMG 14:24
PROVIDERS: PCP Family Medicine; Visit Provider Physician Assistant
DX: R10.9 Unspecified abdominal pain (principal); N20.0 Calculus of kidney
CPT/HCPCS: 74176

== ENCOUNTER 2024-11-03 01:24 | Day surgery (SDC) | payer MEDICARE, SELFPAY ==
[2024-10-19 13:45] VITALS: BMI 34.7
--- NOTE | 2024-11-03 08:23 | P.PNAN_ITS ---
Anes - Eval Pre Procedure Procedure: Operation Date: 11/03/24 10:30 Proposed Procedures p Screening Colonoscopy - Alfonso Elliott MD Date/Time: 11/03/24 08:23 Surgeon: lev Pre Op Diagnosis: personal hx colon polyps Patient Data Age: 69 Gender: M Height: 1.78 m Weight: 110 kg Allergies Allergy/AdvReac Type Severity Reaction Status Date / Time No Known Allergies Allergy Verified 10/19/24 13:28 Home Medications ?Medication ?Instructions ?Recorded ?Confirmed ?Type ferrous sulfate 325 mg (65 mg 325 mg PO .COMPLEX 01/19/24 10/21/24 History iron) tablet (Feosol) satouvum-jszmrgsh-aeoxe acid 400 1 tablet PO DAILY 01/19/24 10/21/24 History mcg-vit K 20 mcg-lycop 300 mcg tablet (One-A-Day Men's Multivitamin) losartan 50 mg tablet See Rx Instructions .Route 02/06/24 10/21/24 Rx .COMPLEX #90 tabs metoprolol tartrate 25 mg tablet See Rx Instructions .Route 02/06/24 10/21/24 Rx .COMPLEX #180 tabs metformin 500 mg tablet See Rx Instructions .Route 03/19/24 10/21/24 Rx .COMPLEX #180 tabs memantine 10 mg tablet See Rx Instructions .Route 07/07/24 10/21/24 Rx .COMPLEX #180 tabs blood-glucose meter (Accu-Chek #1 ea 07/13/24 10/21/24 Rx Guide Glucose Meter) lancets (Accu-Chek Softclix See Rx Instructions .Route 07/13/24 10/21/24 Rx Lancets) .COMPLEX #300 ea atorvastatin 40 mg tablet 40 mg PO QHS #90 tabs 07/19/24 10/21/24 Rx tamsulosin 0.4 mg capsule See Rx Instructions .Route 08/08/24 10/21/24 Rx .COMPLEX #90 caps blood sugar diagnostic (Accu-Chek #100 strips 08/27/24 10/21/24 Rx Guide test strips) bupropion HCl 150 mg 24 hr tablet, 150 mg PO QAM 10/07/24 10/21/24 History extended release fluoxetine 20 mg capsule 20 mg PO DAILY #90 caps 10/07/24 10/21/24 Rx aspirin 81 mg tablet,delayed 81 mg PO DAILY 10/19/24 10/21/24 History release (Adult Low Dose Aspirin) gabapentin 300 mg capsule 300 mg PO DAILY 10/19/24 10/21/24 History donepezil 5 mg tablet See Rx Instructions .Route 10/22/24 Rx .COMPLEX #90 tabs ECG: previous ECG SR Patient hx anesthesia problems: none Family hx anesthesia problems: none Results Review: All pre-operative results and documents have been reviewed as part of the pre- operative evaluation. [facility] Past Medical History Medical History Right buttock pain Leg swelling Sinusitis Pharyngitis Type 2 diabetes mellitus without complication, without long-term current use of insulin Nocturia Mixed hyperlipidemia Essential (primary) hypertension Arthritis of knee Palpable mass of lower back Palpable mass Back pain Patellar bursitis of left knee Plantar fasciitis of left foot Pain of left heel Foot pain, left Borderline type 2 diabetes mellitus Hyperlipidemia Constipation by delayed colonic transit Elevated glucose Arthritis of both knees Excessive daytime sleepiness Anemia SOBOE (shortness of breath on exertion) Cough due to MARCELINO inhibitor Bronchitis HTN (hypertension) Elevated BP without diagnosis of hypertension Diabetes mellitus Opioid dependence MDD (major depressive disorder), recurrent episode, moderate Arthritis Chronic pain disorder Surgical History Surgical History H/O arthroscopic knee surgery Right S/P total knee arthroplasty left TKA Family History Family History Father Family history of cardiovascular disease, Onset Age: 77 Hypertension Depression Mother Depression Cancer Other Family history of liver disease Social History Social History Social History: caffeine uses Smoking packs per day: 1 Smoking cigarettes per day: 20.0 Years smoked: 10 Smoking pack-years: 10.00 Smoking status: Former smoker Tobacco type: cigarettes Second hand tobacco smoke exposure: No Smoking end date: 10/13/82 Alcohol intake: never Substance use: never Substance use type: does not use Do You Feel Safe in your Home?: Yes Lack of Transportation: No Lack of Food: Never True Current Housing: I Have Housing Concerned About Future Housing: No Difficulty Paying Gas/Electric Bills: No Difficulty Paying for Meds: No Currently Unemployed: No Education: High School Diploma/GED Difficulty w/ Childcare or Family Care: No Living arrangements: with family Occupation/Education: retired Gender identity (if verbalized by the patient): Male Sexual Orientation (if Verbalized by the Patient): Straight or Heterosexual Spiritual care concerns: No Exam Day of Procedure 11/03/24 08:23
--- NOTE | 2024-11-03 08:40 | P.PNAN_ITS ---
Anes - Eval Final PreProcedure Day of Procedure 11/03/24 08:40 Patient weight: normal Heart: regular rate and rhythm Lungs: clear to auscultation and decreased breath sounds Airway: Mallampati scale class II Neurological: alert and oriented Last oral intake: >/= 8 hours ASA classification: II Emergent: no Anesthetic plan: proceed Anesthesia type and monitoring: general GIVS and standard monitoring Results Review: All pre-operative results and documents have been reviewed as part of the pre- operative evaluation. Informed Consent: The patient's anesthetic plan and its attendant risks and benefits were discussed with the patient/family/POA. Questions were solicited and answers provided to the satisfaction of the patient/family/POA.
[2024-11-03 09:15] VITALS: BP 152/75; PULSE 68; RESP 18; TEMP 36.1; O2SAT 98
[2024-11-03] MEDS: LACTATED RINGERS 1,000 ML 150 ML IV CONT (09:24)
[2024-11-03 09:25] LABS: Glucose Point of Care 104 mg/dl (65-105)
--- NOTE | 2024-11-03 09:48 | PM.IMHP ---
H&P: HPI History of Present Illness Date/Time: 11/03/24 09:48 Chief Complaint: History of colon polyps Narrative: The patient has a history of colonic polyps, the last colonoscopy was 5 years ago Review of Systems Review of Systems: All systems reviewed & are unremarkable except as noted in HPI and below Constitutional: Constitutional: Denies chills, Denies fatigue and Denies fever(s) ENT: Denies nasal congestion and Denies sore throat Cardiovascular: Cardiovascular: Reports chest pain, Denies rapid heart rate and Denies radiating jaw, neck or arm pain Respiratory: Respiratory: Denies cough and Denies dyspnea Gastrointestinal: Gastrointestinal: Denies abdominal pain, Denies nausea and Denies vomiting [facility] Past Medical History Medical History (Updated 11/03/24 @ 09:49 by Alfonso Elliott MD) History of colonic polyps Right buttock pain Leg swelling Sinusitis Pharyngitis Type 2 diabetes mellitus without complication, without long-term current use of insulin Nocturia Mixed hyperlipidemia Essential (primary) hypertension Arthritis of knee Palpable mass of lower back Palpable mass Back pain Patellar bursitis of left knee Plantar fasciitis of left foot Pain of left heel Foot pain, left Borderline type 2 diabetes mellitus Hyperlipidemia Constipation by delayed colonic transit Elevated glucose Arthritis of both knees Excessive daytime sleepiness Anemia SOBOE (shortness of breath on exertion) Cough due to MARCELINO inhibitor Bronchitis HTN (hypertension) Elevated BP without diagnosis of hypertension Diabetes mellitus Opioid dependence MDD (major depressive disorder), recurrent episode, moderate Arthritis Chronic pain disorder Surgical History Surgical History H/O arthroscopic knee surgery Right S/P total knee arthroplasty left TKA Family History Family History Father Family history of cardiovascular disease, Onset Age: 77 Hypertension Depression Mother Depression Cancer Other Family history of liver disease Social History Social History Social History: caffeine uses Smoking packs per day: 1 Smoking cigarettes per day: 20.0 Years smoked: 10 Smoking pack-years: 10.00 Smoking status: Former smoker Tobacco type: cigarettes Second hand tobacco smoke exposure: No Smoking end date: 10/13/82 Alcohol intake: never Substance use: never Substance use type: does not use Do You Feel Safe in your Home?: Yes Lack of Transportation: No Lack of Food: Never True Current Housing: I Have Housing Concerned About Future Housing: No Difficulty Paying Gas/Electric Bills: No Difficulty Paying for Meds: No Currently Unemployed: No Education: High School Diploma/GED Difficulty w/ Childcare or Family Care: No Living arrangements: with family Occupation/Education: retired Gender identity (if verbalized by the patient): Male Sexual Orientation (if Verbalized by the Patient): Straight or Heterosexual Spiritual care concerns: No Meds Home Medications and Allergies Home Medications ?Medication ?Instructions ?Recorded ?Confirmed ?Type ferrous sulfate 325 mg (65 mg 325 mg PO .COMPLEX 01/19/24 11/03/24 History iron) tablet (Feosol) odgatvvg-txphzjuo-swomx acid 400 1 tablet PO DAILY 01/19/24 11/03/24 History mcg-vit K 20 mcg-lycop 300 mcg tablet (One-A-Day Men's Multivitamin) losartan 50 mg tablet See Rx Instructions .Route 02/06/24 11/03/24 Rx .COMPLEX #90 tabs metoprolol tartrate 25 mg tablet See Rx Instructions .Route 02/06/24 11/03/24 Rx .COMPLEX #180 tabs metformin 500 mg tablet See Rx Instructions .Route 03/19/24 11/03/24 Rx .COMPLEX #180 tabs memantine 10 mg tablet See Rx Instructions .Route 07/07/24 11/03/24 Rx .COMPLEX #180 tabs blood-glucose meter (Accu-Chek #1 ea 07/13/24 10/21/24 Rx Guide Glucose Meter) lancets (Accu-Chek Softclix See Rx Instructions .Route 07/13/24 10/21/24 Rx Lancets) .COMPLEX #300 ea atorvastatin 40 mg tablet 40 mg PO QHS #90 tabs 07/19/24 11/03/24 Rx tamsulosin 0.4 mg capsule See Rx Instructions .Route 08/08/24 11/03/24 Rx .COMPLEX #90 caps blood sugar diagnostic (Accu-Chek #100 strips 08/27/24 10/21/24 Rx Guide test strips) bupropion HCl 150 mg 24 hr tablet, 150 mg PO QAM 10/07/24 11/03/24 History extended release fluoxetine 20 mg capsule 20 mg PO DAILY #90 caps 10/07/24 11/03/24 Rx aspirin 81 mg tablet,delayed 81 mg PO DAILY 10/19/24 11/03/24 History release (Adult Low Dose Aspirin) gabapentin 300 mg capsule 300 mg PO DAILY 10/19/24 11/03/24 History donepezil 5 mg tablet See Rx Instructions .Route 10/22/24 11/03/24 Rx .COMPLEX #90 tabs Allergies Allergy/AdvReac Type Severity Reaction Status Date / Time No Known Allergies Allergy Verified 11/03/24 09:13 Vital Signs Vital Signs - 24 hr 11/03/24 09:15 Temperature 97 F L Pulse Rate 68 Respiratory Rate 18 Blood Pressure 152/75 H Pulse Oximetry 98 Oxygen Delivery Room Air Assessment and Plan Assessment and plan (1) History of colonic polyps: Code(s): Z86.0100 - Personal history of colon polyps, unspecified Status: Acute
--- NOTE | 2024-11-03 10:27 | P.PNAN_ITS ---
Anes - Eval Final PreProcedure Day of Procedure 11/03/24 10:27 Patient weight: obese Heart: regular rate and rhythm Lungs: clear to auscultation Airway: Mallampati scale class II Neurological: alert and oriented Last oral intake: >/= 8 hours ASA classification: III Emergent: no Anesthetic plan: proceed Anesthesia type and monitoring: general GIVS and standard monitoring Results Review: All pre-operative results and documents have been reviewed as part of the pre- operative evaluation. Informed Consent: The patient's anesthetic plan and its attendant risks and benefits were discussed with the patient/family/POA. Questions were solicited and answers provided to the satisfaction of the patient/family/POA.
[2024-11-03 10:53] VITALS: BP 133/80; PULSE 61; RESP 13; O2SAT 98
[2024-11-03 11:03] VITALS: BP 178/93; PULSE 60; RESP 14; O2SAT 99
[2024-11-03 11:13] VITALS: BP 173/96; PULSE 62; RESP 12; O2SAT 99
--- OUTSIDE RECORDS SUMMARY | 2024-11-04 21:06 | XMS_ITS | Data Portability ---
Author Organization [facility]io CésarRomeville [facility] Address [address] [facility] [place] [address] Care Team Providers Care Chemistry Lecturer Name Role Phone RICHARD RAMOS Primary Care Provider [phone] Assessment No assessment recorded. Plan of Treatment Reminders Order Date Submit Date Provider Last Modified By Organization Details Last Modified Time Details Appointments None recorded. Lab PSA, serum or plasma [address] [facility] (Lab), [address] [place] [address], [phone], 8 10:06:06 CMP, serum or plasma [address] [facility] (Lab), [address] [place] [address], [address], 8 10:06:[address] [facility] (Lab), [address] [place] [address], [address], 8 17:08:33 lipid panel, serum [address] [facility] (Lab), [address] [place] [address], [id number], 8 10:06:07 TSH, ultra-sens itive, serum [address] [facility] (Lab), [address] [place] [address], [address], 8 10:06:06 Referral urologist referral - please call patient to schedule appt. Thank you 2017 018 [email or web address] Not available 8 15:01:21 Procedures None recorded. Surgeries None recorded. Imaging None recorded. Medication Orders tramadol 50 mg tablet 2017 018 [email or web address] Not available 8 11:12:18 tramadol 50 mg tablet 2017 018 [email or web address] Not available 8 11:12:18 hydrocodon e 5 mg-acetami nophen 325 mg tablet 2017 018 INTERFACE Not available 8 11:19:46 Patient TargetsNo targets recorded. Patient Instructions Encounter Date Encounter Id Patient Instructions Last Modified By Organization Details Last Modified Time 08/20/2018 [id number] knee arthritis: care instructions [email or web address] Not available 08/20/2018 17:21:58 08/27/2018 [id number] learning about high blood pressure Not available 08/27/2018 11:19:43 Reason for Referral Urologist Referral for Abnor mal urine altered stream/milky urine please call patient to schedule appt. Thank you Referring Physician: Richard Ramos, Internal Medicine, Encounter Date: 12/24/2017 Results Created Date Observation Date Name Description Value Unit Range Abnormal Flag Note LastModifiedBy Organization Detail LastModifiedTime 12/02/19 18 XR, knee, 4 or more view No observ ation record ed. [email or web address] Not Available 2017 17:02:35 Result Notes None recorded. Problems Name Problem SNOMED Code Status Onset Date Resolution Date Notes Provider Name and Address Organization Details Recorded Time Pain in bilateral legs [id number] 84092 Active 2016 sharp shooting Richard Ramos MD Attn: So hill,[address] [facility], [place], [address], [facility] 7 17:04:44 Abnormal liver function 51897744 Active 2016 Richard Ramos MD Attn: So hill,[address] [facility], [place], [address], [place] - [facility] 7 17:19:03 Obesity 862221205 Active 2016 Richard Ramos MD Attn: So hill,[address] [facility], [place], [address], [place] [facility] 7 17:19:27 Abnormal urine 375047535 Active 2017 Richard Ramos MD Attn: So hill,[address] [facility], [place], [address], [place] [facility] 8 12:45:34 Bilateral knee pain Active 2017 Richard Ramos MD Attn: Accountlinda g,[address] [facility], [place], [address], [place] [facility] 8 14:05:34 Essential hypertens ion 75448047 Active Richard Ramos MD Attn: Accountlinda g,[address] [facility], [place], [address], [place] [facility] 6 10:49:08 Osteoarth ritis of knee 316259485 Active Richard Ramos MD Attn: Accountlinda g,[address] [facility], [place], [address], [place] [facility] 6 10:49:08 Psoriasis 7332865 Active Richard Ramos MD Attn: So g,[address] [facility], [place], [address], [place] [facility] 5 12:10:32 Depressiv e disorder 75621366 Active Richard Ramos MD Attn: Accountlinda g,[address] [facility], [place], [address], [place] [facility] 6 10:49:08 Perifolli culitis 26512961 Active Richard Ramos MD Attn: Accountin g,[address] [facility], [place], [address], [place] [facility] 6 12:09:24 Skin lesion 45037928 Active Richard Ramos MD Attn: Accountin g,[address] [facility], [place], [address], [place] [facility] 6 11:18:35 Neck pain 32901224 Active Richard Ramos MD Attn: So hill,[address] [facility], [place], [address], [place] [facility] 6 10:49:08 Restless legs 78741373 Active Richard Ramos MD Attn: Accountlinda hill,[address] [facility], [place], [address], [place] [facility] 6 11:18:35 Ganglion of hand 338616478 Active Richard Ramos MD Attn: Accountlinda hill,[address] [facility], [place], [address], [place] [facility] 6 10:49:08 Medicatio n monitorin g Active 2016 Richard Ramos MD Attn: Accountlinda hill,[address] [place], [address], [place] [facility] 7 22:19:45 Family history of Liver disease 474121510 Active 2016 Richard Ramos MD Attn: So hill,[address] [facility], [place], [address], [place] [facility] 7 10:58:24 History of polyp of colon 262453939 Active 2016 Richard Ramos MD Attn: Accountlinda hill,[address] [facility], [place], [address], [place] [facility] 7 11:05:22 Screening for malignant neoplasm of prostate Active 2016 Richard Ramos MD Attn: Accountin g,[address] [facility], [place], [address], [place] [facility] 7 11:05:59 HIV screening Active 2016 Richard Ramos MD Attn: So [place],[address] [place], [address], [place] [facility] 7 11:06:31 Active immunizat ion Active 2016 Richard Ramos MD Attn: So g,[address] [facility], [place], [address], [facility] 7 11:07:57 Problem Notes None recorded. Procedures Surgical History Date Name Laterality Status Provider Name and Address Organization Details Recorded Time 1 Knee Surgery completed Richard Ramos MD Attn: Accounting, [address], [place], [address], [facility] 03/02/2015 11:45:05 Other completed Ranjith Ferguson [place] 03/02/2015 11:12:44 Other completed Ranjith Ferguson MA [facility] 03/02/2015 11:12:44 Imaging Results Imaging Date Name Status LastModified by Organiz ation Details LastModified Time 12/02/2017 XR, knee, 4 or more view completed [email or web address] Information not available 12/04/2017 17:02:35 Procedure Notes None recorded. Medical Equipment None Reported. Allergies No known drug allergies Medications Name Sig Start Date Stop Date Status Note LastModified by Organization Details LastModified Time Prescript ion - Renewal 08/20 completed Script for refill on Tramadol . Not Available Not Available Not Available hydrocodo ne 5 mg-acetam inophen 325 mg tablet Take 1 tablever y 8 hrs as needed active Not Available Not Available No t Available tramadol 50 mg tablet Take 1 tablet twice a day by oral route as needed for 7 days. 08/27 completed Rash Not Available Not Available Not Available triamcino lone acetonide 0.1 % topical cream APPLY A THIN LAYER TO THE AFFECTED AREA(S) BY TOPICAL ROUTE 2 TIMES R DAY active Not Available Not Available No t Available amitripty line 25 mg tablet TAKE 1 TABLET BY MOUTH EVERY NIGHT AT BEDTIME 01/13 completed Not Available Not Available Not Available tamsulosi n 0.4 mg capsule active Not Available Not Available Not Available venlafaxi ne 37.5 mg tablet TAKE ONE TABLET BY MOUTH TWICE DAILY 2018 active Not Available Not Available Not Avai lable gabapenti n 300 mg capsule Take 2 capsules twice a day by oral route. active Not Available Not Available No t Available lisinopri l 10 mg-hydroc hlorothia zide 12.5 mg tablet active Not Available Not Available No t Available naproxen 500 mg tablet 08/20 completed Not Available Not Available Not Available metoprolo l tartrate 25 mg tablet TAKE ONE TABLET BY MOUTH TWICE DAILY active Not Available Not Available No t Available duloxetin e 60 mg capsule,d elayed release Take 1 capsule every day by oral route. 07/01 completed More depresse d Not Available Not Available Not Available Zostavax (PF) 19,400 unit/0.65 mL subcutane ous suspensio n active Not Available Not Available Not Available Gavilyte- C 240 gram-22.7 2 gram-6.72 gram-5.84 gram oral solution 08/20 completed Not Available Not Available Not Available Fluvirin 1640-6660 45 mcg (15 mcg x 3)/0.5 mL intramusc ular suspensio n 08/20 completed Not Available Not Available Not Available Vitals Date Recorded Body height Provider Name an d Address Organization Details Last Updated DateTime 12/24/2017 177.8 cm Dulce Garay [facility] 8 12:17:39 Date Recorded Body mass index (BMI) Body weight Provider Name and Address Organization Details Last Updated DateTime 12/24/2017 38.3 kg/m2 824425.16 g Dulce Garay MA [facility] 12/24/2017 12:26:26 Date Recorded Body temperature Provider Name a nd Address Organization Details Last Updated DateTime 12/24/2017 98.3 [degF] Dulce Garay MA [facility] 12/25/19 18 12:27:42 Date Recorded Oxygen saturation Oxygen saturation in Arterial blood by Pulse oximetry Provider Name and Address Organization Details Last Updated DateTime 12/24/2017 96 % 96 % Dulce Garay MA [facility] 12/24/2017 12:27:45 Date Recorded Heart rate Provider Name an d Address Organization Details Last Updated DateTime 12/24/2017 86 /min Dulce Garay MA [facility] 8 12:27:49 Date Recorded Body height Provider Name an d Address Organization Details Last Updated DateTime 05/12/2018 177.8 cm Dulce Garay MA [facility] 8 13:11:17 Date Recorded Body mass index (BMI) Body weight Provider Name and Address Organization Details Last Updated DateTime 05/12/2018 37 kg/m2 000788.11 g Dulce Garay MA [facility] 0 05/12/2018 13:35:55 Date Recorded Body temperature Provider Name a nd Address Organization Details Last Updated DateTime 05/12/2018 98.2 [degF] Dulce Garay MA [facility] 05/12/20 18 13:36:02 Date Recorded Oxygen saturation Oxygen saturation in Arterial blood by Pulse oximetry Provider Name and Address Organization Details Last Updated DateTime 05/12/2018 96 % 96 % Dulce Garay MA [facility] 05/12/2018 13:37:06 Date Recorded Heart rate Provider Name an d Address Organization Details Last Updated DateTime 05/12/2018 76 /min Dulce Garay MA [facility] 8 13:37:18 Date Recorded Body height Provider Name an d Address Organization Details Last Updated DateTime 08/20/2018 177.8 cm Wayne Butts MA [facility] 2017 16:10:41 Date Recorded Body mass index (BMI) Body weight Provider Name and Address Organization Details Last Updated DateTime 08/20/2018 36.6 kg/m2 164707.34 g Wayne Butts MA [facility] 08/20/2018 16:22:39 Date Recorded Body temperature Provider Name a nd Address Organization Details Last Updated DateTime 08/20/2018 98 [degF] Wayne Butts MA [facility] 08/20/2018 16:26:29 Date Recorded Oxygen saturation Oxygen saturation in Arterial blood by Pulse oximetry Provider Name and Address Organization Details Last Updated DateTime 08/20/2018 97 % 97 % Wayne Butts MA [facility] 08/20/2018 16:26:39 Date Recorded Heart rate Provider Name an d Address Organization Details Last Updated DateTime 08/20/2018 75 /min Wayne Butts MA [facility] 2017 16:26:41 Date Recorded Body height Provider Name an d Address Organization Details Last Updated DateTime 08/27/2018 177.8 cm Dulce Garay MA [facility] 8 10:48:13 Date Recorded Body mass index (BMI) Body weight Provider Name and Address Organization Details Last Updated DateTime 08/27/2018 36.6 kg/m2 787185.05 g Dulce Garay MA [facility] 08/27/2018 10:58:01 Date Recorded Body temperature Provider Name a nd Address Organization Details Last Updated DateTime 08/27/2018 98.2 [degF] Dulce Garay MA [facility] 08/27/20 18 10:58:03 Date Recorded Oxygen saturation Oxygen saturation in Arterial blood by Pulse oximetry Provider Name and Address Organization Details Last Updated DateTime 08/27/2018 98 % 98 % Dulce Garay MA [facility] 08/27/2018 10:58:05 Date Recorded Heart rate Provider Name an d Address Organization Details Last Updated DateTime 08/27/2018 74 /min Dulce Garay MA [facility] 8 10:58:09 Date Recorded Systolic blood pressure Diastolic blood pressure Provider Name and Address Organization Details Last Updated DateTime 12/24/2017 138 mm[Hg] 84 mm[Hg] Dulce Garay MA [facility] 12/24/2017 12:27:58 Date Recorded Systolic blood pressure Diastolic blood pressure Provider Name and Address Organization Details Last Updated DateTime 05/12/2018 140 mm[Hg] 84 mm[Hg] Dulce Garay MA [facility] 05/12/2018 13:37:14 Date Recorded Systolic blood pressure Diastolic blood pressure Provider Name and Address Organization Details Last Updated DateTime 08/20/2018 130 mm[Hg] 76 mm[Hg] Wayne Butts MA [facility] 08/20/2018 16:28:47 Date Recorded Systolic blood pressure Diastolic blood pressure Provider Name and Address Organization Details Last Updated DateTime 08/27/2018 138 mm[Hg] 82 mm[Hg] Dulce Garay MA [facility] 08/27/2018 10:57:58 Social History Question Answer Notes LastModified by Organizat ion Details LastModified Time Tobacco Smoking Status Former Smoker ALFONZO Meraz, [facility] 03/02/2015 11:12:44 What Is Your Level Of Alcohol Consumption? None Information not available 03/02/2015 What Is Your Level Of Caffeine Consumption? Heavy Information not available 03/02/2015 What Was The Date Of Your Most Recent Tobacco Screening? 08/27/2018 Information n ot available 05/06/2019 Sex: Unknown Functional Status None recorded. Mental Status None recorded. Family History Relationship Description Onset Age of this Age Resolved Age Notes LastModified by Organization Details LastModified Time Paternal Uncle Diabetes mellitus [email or web address] Not available 09/13 11:04:32 Paternal Uncle Heart disease [email or web address] Not available 09/13 11:04:32 Medical History Condition Response Muscle, Joint, or Bone Problems Y High Blood Pressure Y Depression Y Blood Clots Y High Cholesterol Y Immunizations Vaccine Type Date Status Note Provider Nam e and Address Organization Details Recorded Time COVID-19 vaccine, vector-nr, rS-Ad26, PF, 0.5 mL 1 completed Jennifer vogt, [place] - [facility] 04/12/2021 16:15:22 Tdap 7 completed Not Available [facility] 10/30/2019 02:44:48 Influenza, split virus, quadrivalent, preservative 7 completed Not Available [facility] 10/30/[facility] 02:42:36 Influenza, split virus, quadrivalent, preservative 8 completed Not Available [facility] 10/30/2019 02:51:07 Past Encounters Encounter ID Performer Location Encounter Start Date Encounter Closed Date Diagnosis/Indication Diagnosis SNOMED-CT Code Diagnosis ICD10 Code Diagnosis Note [id number] [facility] (Adult Med) [address] [place] [phone] 03/02/2015 10:31:18 03/02/2015 12:14:26 Essential hypertension 15489799 Osteoarthr itis of knee 187239611 Screening for malignant neoplasm of prostate 947194194 History of polyp of colon 453299381 Psoriasis 2422294 [id number] MD Michael N[facility] (Adult Med) [address] [place] [id number] 05/02/2015 11:05:15 05/02/2015 12:59:29 Osteoarthritis of knee 368684051 Will increase to tramadol to q 6hrs and dispense 110 [id number] MD [facility] (Adult Med) [address] [place] [id number] 08/02/2015 16:17:29 08/02/2015 17:45:24 Depressive disorder 40127621 F32.9 Essential hypertension 34057405 I10 Osteoarthr itis of knee 732915126 M17.9 Will increase to tramadol to q 6hrs and dispense 110 [id number] Cristine Bear is [facility] (Adult Med) [address] [place] [id number] 10/02/2015 10:31:39 10/02/2015 16:14:10 Essential hypertension 57051832 I10 History of polyp of colon 264788820 Z86.010 Osteoarthr itis of knee 478146247 M17.9 Will increase to tramadol to q 8 hrs Depressive disorder 3548 9007 F32.9 Perifolliculitis 0924154 4 L01.02 Localised. Skin lesion 07056767 L98 .9 Lefdt sikh [id number] Cayla Rodriguez (Adult Med) [address] [place] [id number] 01/01/2016 10:20:13 01/01/2016 12:10:47 Essential hypertension 82503780 I10 Neck pain 30783132 M54.2 Perifolliculitis 1544330 4 L01.02 Localised. Skin lesion 28001682 L98 .9 Right thigh [id number] Cristine Bear is [facility] (Adult Med) [address] [place] [id number] 04/01/2016 09:41:34 04/01/2016 11:21:04 Essential hypertension 21887275 I10 Depressive disorder 3548 9007 F32.9 Skin lesion 28536962 L98 .9 Right thigh Restless legs 16369742 G 25.81 Osteoarthr itis of knee 375578090 M17.9 Will increase to tramadol to q 8 hrs [id number] Wendy Rodriguez (Adult Med) [address] [place] [id number] 07/23/2016 09:45:34 07/23/2016 10:50:06 Essential hypertension 68849310 I10 Neck pain 10223947 M54.2 Osteoarthr itis of knee 013551359 M17.9 Will increase to tramadol to q 8 hrs Depressive disorder 3548 9007 F32.9 Ganglion of hand 1420352 07 M67.486 [id number] Richard Ramos MD [facility] (Adult Med) [address] [place] [id number] 12/24/2016 09:47:34 12/24/2016 17:23:41 Osteoarthritis of knee 828825778 M17.9 Essential hypertension 92243628 I10 Psoriasis 8454648 L40.9 Family his tory of Liver disease 844910382 Z83.79 History of polyp of colon 766645504 Z86.010 Screening for malignant neoplasm of prostate 973400753 Z12.5 HIV screening 071389433 Z11.4 Active immunization 3387 9002 Z23 [id number] Richard Ramos MD [facility] (Adult Med) [address] [place] [id number] 04/29/2017 11:24:31 04/30/2017 18:31:41 Depressive disorder 30149599 F32.9 Will taper venlafaxin e and start duloxetine Family his tory of Liver disease 084431622 Z83.79 Osteoarthr itis of knee 481358698 M17.9 [id number] [address] Ramos MD [facility] (Adult Med) [address] [place] [id number] 07/01/2017 10:20:13 07/01/2017 11:45:17 Essential hypertension 92964516 I10 Depressive disorder 3548 9007 F32.9 Start amitriptyl ine Active immunization 3387 9002 Z23 [id number] MD Michael Nair (Adult Med) [address] [place] [id number] 09/24/2017 16:13:12 09/24/2017 17:19:00 Essential hypertension 63208370 I10 Restless legs 21842059 G 25.81 Osteoarthr itis of knee 727473699 M17.9 Have advised against combining tramadol and hydrocodon e Pain in bi lateral legs 4418743950 6211605 M79.604 M79.605 Will add am gabapentin Family his tory of Liver disease 009191090 Z83.79 Abnormal l iver function 43093330 K76.89 labs on return in 12/2017 Obesity 200020622 E66.9 [id number] Richard Ramos MD [facility] (Adult Med) [address] [place] [id number] 12/24/2017 12:12:33 12/24/2017 12:50:54 Osteoarthritis of knee 137146188 M17.9 Essential hypertension 65542943 I10 Screening for malignant neoplasm of prostate 570654794 Z12.5 Abnormal l iver function 13282730 K76.89 labs on return in 12/2017 Family his tory of Liver disease 119234487 Z83.79 Abnormal urine 512041905 R82.90 [id number] Richard Ramos MD [facility] (Adult Med) [address] [place] [id number] 05/12/2018 12:32:57 05/12/2018 14:14:10 Bilateral knee pain 0460016260 1656659 M25.561 M25.812 [id number] FREEDOM Alexandre (Adult Med) [address] [place] [id number] 06/29/2018 15:24:02 07/06/2018 10:30:40 Administration of influenza vaccine 07487262 Z23 [id number] Kam Aguirre MD [facility] (Adult Med) [address] [place] [id number] 08/20/2018 15:52:29 08/21/2018 13:55:09 Osteoarthritis of knee 982304013 M17.0 [id number] Richard Ramos MD [facility] (Adult Med) [address] [place] [id number] 08/27/2018 10:43:49 08/27/2018 12:03:31 Bilateral knee pain 8127456154 4750333 M25.561 M25.562 Family his tory of Liver disease 399977220 Z83.79 History of polyp of colon 084984653 Z86.010 Essential hypertension 80659969 I10 Health Concerns Section Related Observation LastModified by Organization Detai ls LastModified Time None Recorded Concern Status LastModified by Organization Details LastModified Time None Recorded Advance Directives Directive None Recorded Payers Encounter Date Sequence Insurance Name Policy Number Policy Melgoza Covered Member ID Melgoza Member ID Guarantor Name 12/24/2017 1 [place] [id number] Rene Montes [id number] 20 Rene Montes 05/12/2018 1 [place] [id number] Rene Montes [id number] 20 Rene Montes 06/29/2018 1 [place] [id number] Rene Montes [id number] 20 Rene Montes 08/20/2018 1 [place] [id number] Rene Montes [id number] 20 Rene Montes 08/27/2018 1 [place] [id number] Rene Montes [id number] 20 Rene Montes Notes Date Note Type Note Provider Name and Address Organization Details Recorded Time 12/24/2017 text/html Scheduled for R knee surgery in 1 month. Has a weaker urinary stream than usual. Episodic burning and milky appearance to urine Richard Ramos MD Attn: Accounting,[address] [place], [address], [facility] 12/24/2017 12:49:41 05/12/2018 text/html Is concerned abo ut his pain management. Instructed by GI to avoid nsaids and by the orthopedist to avoid hydrocodone. has increase in pain an both knees at present. is willing to resume using tramadol. Worked well in past and he mistakenly thought he had had an adverse reaction the the drug. Richard Ramos MD Attn: Accounting,[address] [place], [address], [facility] 05/12/2018 14:10:33 08/20/2018 text/html Refills of tramadol, Dr.L. Ramos 's patent. knees pain all the time. Right knee was operated , had tried joints injection but still has pain, on tramadol for about [address] Franck Ramos will be back on next friday08-24-2018. He then can contact him futher care. Kam Aguirre MD Attn: Accounting,[address] [place], [address], [facility] 08/20/2018 17:24:56 08/27/2018 text/html Was informed by GI that he should no longer use NSAIDs. Concerned about rashes associated with Tramadol. Richard Ramos MD Attn: Accounting,[address] [facility], [place], [address], [facility] 08/27/2018 11:20:38
--- OUTSIDE RECORDS SUMMARY | 2024-11-04 21:06 | XMS_ITS ---
Author Organization [facility] [employer] Address [address] [place] [address] Care Team Providers Care Physics And Astronomy Professor Name Role Phone Ashlee PETERSON, Sherry Primary Care Provider Mary Nilo Espinosa Unavailable [phone] Allergies No Known Allergies REASON FOR VISIT follow up Medications Medication SIG (Take, Route, Frequency, Duration) Notes Start Date End Date Status buPROPion HCl ER (XL) 150 MG 1 tablet in the morning Orally Once a day for 90 days 09/24/2024 Active Losartan Potassium 50 MG Oral 04/24/2023 Unknown tiZANidine HCl 2 MG Oral 04/24/2023 Unknown Metoprolol Tartrate 25 MG Oral 04/24/2023 Unknown Tamsulosin HCl 0.4 MG Oral 04/24/2023 Unknown FLUoxetine HCl 20 MG 1 capsule Oral Once a day for 90 days Active Memantine HCl 10 MG Oral 04/24/2023 Active Atorvastatin Calcium 80 MG Oral 04/24/2023 Unknown ARIPiprazole 5 MG 1 tablet Oral Once a day for 90 days Active Social History Sex Assigned At : Social History Observation Description Sex Assigned At Male Household Question Answer Notes Marital status: Encounters Encounter Location Date Provider Diagnosis [facility] [employer] [facility] [address] [place] [address] 09/24/2024 Nilo Peace Major depressive disorder, recurrent severe without psychotic features F33.2 ; Generalized anxiety disorder F41.1 ; Alcohol dependence, in remission F10.21 and Mild neurocognitive disorder G31.84 Assessments Encounter Date Diagnosis (ICD Code) Assessment Notes Treatment Notes Treatment Clinical Notes Section Notes 09/24/2024 Major depressive disorder, recurrent severe without psychotic features (ICD-10 - F33.2) Common side effects to SSRI medications include headaches, dry mouth/eye, GI upset (including indigestion, nausea, diarrhea), sleeping problems (insomnia or drowsiness), decreased libido, blurred vision, dizziness. Generally, side effects will subside or lessen with time and are common during drug initiation and dose changes. If they persist please contact the office. Second generation antipsychotics (SGAs) have metabolic syndrome issues with weight gain, increase in prolactin, increased waist circumference, increased lipids, and increased glucose. Thus routine monitoring of weight, metabolic labs, etc. is indicated. A general rank ordering of antipsychotics that have the greatest to the least risk of metabolic effects is olanzapine, quetiapine, risperidone, ziprasidone, and aripiprazole. However, weight gain can occur with all of these drugs and considerable variability exists among patients receiving the same drug regarding the risk of metabolic effects. Anti-psychotic agents not only increase the risk of metabolic disorder, they also increase the risk of CVA, akathisia, and movement disorders including EPS or tardive dyskinesia (more common with first generation antipsychotics) and more. 09/24/2024 Generalized anxiety disorder (ICD-10 - F41.1) 09/24/2024 Alcohol dependence, in remission (ICD-10 - F10.21) 09/24/2024 Mild neurocognitive disorder (ICD-10 - G31.84) Memantine 10mg BID per PCP 09/24/2024 Other Start Wellbutrin 150mg daily for mood, motivation Decrease fluoxetine to 20mg daily due to apathy Patient educated on all medications including potential benefits, side effects, risks. Educated on proper dosing schedule and importance of compliance. -Assessment and treatment plan reviewed with patient. -Compliance with treatment plan importance discussed. -Discussed the risks/benefits of this medication -Discussed medication side effects. -Contact office if symptoms worsen. -Discussed that it can take up to 6-8 weeks to see full therapeutic effects of psychotropic medications. -Crisis prevention hotline 988. Plan Of Treatment Medication Medication Name Sig Start Date Stop Date Notes buPROPion HCl ER (XL) 150 MG 1 tablet in the morning Orally Once a day for 90 days 09/24/2024 FLUoxetine HCl 20 MG 1 capsule Oral Once a day for 90 days ARIPiprazole 5 MG 1 tablet Oral Once a day for 90 days Treatment Notes Assessment Notes Major depressive disorder, r ecurrent severe without psychotic features Common side effects to SSRI medications include headaches, dry mouth/eye, GI upset (including indigestion, nausea, diarrhea), sleeping problems (insomnia or drowsiness), decreased libido, blurred vision, dizziness. Generally, side effects will subside or lessen with time and are common during drug initiation and dose changes. If they persist please contact the office. Second generation antipsychotics (SGAs) have metabolic syndrome issues with weight gain, increase in prolactin, increased waist circumference, increased lipids, and increased glucose. Thus routine monitoring of weight, metabolic labs, etc. is indicated. A general rank ordering of antipsychotics that have the greatest to the least risk of metabolic effects is olanzapine, quetiapine, risperidone, ziprasidone, and aripiprazole. However, weight gain can occur with all of these drugs and considerable variability exists among patients receiving the same drug regarding the risk of metabolic effects. Anti-psychotic agents not only increase the risk of metabolic disorder, they also increase the risk of CVA, akathisia, and movement disorders including EPS or tardive dyskinesia (more common with first generation antipsychotics) and more. Mild neurocognitive disorder Memantine 1 0mg BID per PCP Other Start Wellbutrin 150mg daily for mood, motivation Decrease fluoxetine to 20mg daily due to apathy Patient educated on all medications including potential benefits, side effects, risks. Educated on proper dosing schedule and importance of compliance. Next Appt Details Follow Up: 6 Weeks, Reason: med f/u Provider Name:Nilo Peace, 11/05/2024 08:00:00 AM, [address] [place] [address] [address] [facility], [facility] [address], [place], [address], Progress Notes * RILEY GONZALEZ CDOB:[birth year] (69 yo M)Acc No.[id number]:09/24/2024 Patient:?RILEY GONZALEZ Provider:?NILO PEACE PMHNP :1955???Age:69 Y???Sex:Male Dominick e:09/24/2024 Address:[address] [place] [address] Pcp:Sherry Rosado MD Subjective: * Chief Complaints: * ???Follow up * HPI: ???History of Presenting Problem:?Anxiety?with excessive worry, with restlessness-- stable?.?Depression?Rates depression 2/10 with 10 being most severe.?.?Mood lability?no hx francisco.?Psychosis?no hx psychosis.?Sleep disturbance?with a history of sleep apnea-CPAP.?Suicidal ideation?denies.?Memory?SLUMS=26? ?08/10/2024?.?Here for follow up. Lukas increased last apt. Reports he has not noted a significant change. Continues to feel loss of interest, low motivation; I feel run down . States I feel down more than I should be; I dont feel hopeless , no suicidal ideation. Denies feeling anxious, no panic attacks recently.? Sleep is fair, getting about 6 hours nightly. He has not been wearing his CPAP. Appetite is fair. ???Past Psychiatric Hospitalizations:? previous admissions/IOP/PHP: none history of SI/SA: denies family psychiatric history: parents-depression previously trialled medications: Prozac, Vraylar (not covered) history of neglect/abuse/trauma: denies substance use history: history of alcohol dependence-was drinking 8 beers daily or a pint of whiskey-quit heavy drinking in 2012. ???Depression Screening:?PHQ-2 (2015 Edition)?Little interest or pleasure in doing things??Nearly every day,?Feeling down, depressed, or hopeless??More than half the days,?Total Score?5.?DEMARIO-7 (2018 Edition)?Feeling nervous, anxious, or on edge Not at all,?Not being able to stop or control worrying?Not at all,?Worrying too much about different things?Not at all,?Trouble relaxing?More than half the days,?Being so restless that it is hard to sit still?Several days,?Becoming easily annoyed or irritable?Several days,?Feeling afraid as if something awful might happen?Several days,?Total DEMARIO-7 Score?5,?Interpretation of Total?(5 to 9) Mild.?Depression screening:?PHQ-9?Little interest or pleasure in doing things?Nearly every day,?Feeling down, depressed, or hopeless?More than half the days,?Trouble falling or staying asleep, or sleeping too much?More than half the days,?Feeling tired or having little energy?Nearly every day,?Poor appetite or overeating?Several days,?Feeling bad about yourself or that you are a failure, or have let yourself or your family down?Not at all,?Trouble concentrating on things, such as reading the newspaper or watching television?Nearly every day,?Moving or speaking so slowly that other people could have noticed; or the opposite, being so fidgety or restless that you have been moving around a lot more than usual?Not at all,?Thoughts that you would be better off or of hurting yourself in some way Not at all,?Total Score?14,?Interpretation?Moderate Depression.?Intervention?Depression Screening Findings?Positve,?Follow-Up for Depression?Mental health treatment assessment, Patient follow-up to return when and if necessary,?Suicide Risk Assessment Performed?09/24/2024,?Additional Evaluation for Depression?Psychiatric interview and evaluation,?Name of the standardized tool used for adult depression screening:?Patient Health Questionnaire (PHQ-9).? * ROS:?Psychiatric:?Patient denies?suicidal thoughts, francisco, psychosis, depressed mood, anxiety, irritability, auditory / visual hallucinations.?Patient complains of?depressed mood, irritability.?Comments?See HPI for details.? * Medical History:? * Surgical History:? * Hospitalization/Major Diagno stic Procedure:? * Family History:?Unspecified Relation: Alcohol abuse .?Maternal Uncle: Diabetes mellitus .?Father: Epilepsy .?Paternal Uncle: History of attempted suicide , Depressive disorder .?Brother: Schizophrenia , Bipolar disorder , Depressive disorder , Anxiety disorder .? * Social History:?Migrated Social History:?Migrated Social History: Alcohol Intake: None 04/24/2023,Tobacco Years: Former smoker 03/14/2023. ???Household:?Household?Marital status:?.? * Medications:?TakingMemantine HCl 10 MG Tablet Oral ARIPiprazole 5 MG Tablet 1 tablet Oral Once a day FLUoxetine HCl 40 MG Capsule 1 capsule Oral Once a day Taking Memantine HCl 10 MG Tablet Oral Taking ARIPiprazole 5 MG Tablet 1 tablet Oral Once a day Taking FLUoxetine HCl 40 MG Capsule 1 capsule Oral Once a day UnknownAtorvastatin Calcium 80 MG Tablet Oral tiZANidine HCl 2 MG Capsule Oral Losartan Potassium 50 MG Tablet Oral Tamsulosin HCl 0.4 MG Capsule Oral Metoprolol Tartrate 25 MG Tablet Oral Medication List reviewed and reconciled with the patientUnknown Atorvastatin Calcium 80 MG Tablet Oral Unknown tiZANidine HCl 2 MG Capsule Oral Unknown Losartan Potassium 50 MG Tablet Oral Unknown Tamsulosin HCl 0.4 MG Capsule Oral Unknown Metoprolol Tartrate 25 MG Tablet Oral Medication List reviewed and reconciled with the patient * Allergies:?N.K.D.A.no[Allerg ies Verified] Objective: * Vitals:? * Examination: ???Psychiatry: ?Dementia?.?Appearance:?well-groomed.?Abnormal body movements:?none.?Affect / mood:?appropriate.?Attention:?good.?Attitude:?cooperative.?Homicidal ideation:?none.?Suicidal ideation:?none.?Degree of awareness of surroundings:?within normal limits.?Delusions:?no.?Hallucinations:?no.?Insight:?good.?Judgement:?good.?Orientation:?awake, alert and oriented x 3.?Perceptual disorders:?no perceptual disorder noted.?Psychomotor activity:?within normal range.?Speech / language:?normal rate, volume, and articulation (RVR), clear and coherent, appropriate pitch/modulation.?Thought content:?appropriate.?Thought process:?intact.?Functional Assessment: ?Venegas Index of ADL?.?Physical Functioning?.?1 point for independence, 0 for help1 point for independence, 0 for help. Assessment: * Assessment: 1.?Major depressive disorder , recurrent severe without psychotic features - F33.2 (Primary)???2.?Generalized anxiety disorder - F41.1???3.?Alcohol dependence, in remission - F10.21???4.?Mild neurocognitive disorder - G31.84??? Plan: * Treatment: 2.?Mild neurocognitive disor terence? Notes: Memantine 10mg BID per PCP?? 3.?Others? Notes: Start Wellbutrin 150mg daily for mood, motivation Decrease fluoxetine to 20mg daily due to apathy Patient educated on all medications including potential benefits, side effects, risks. Educated on proper dosing schedule and importance of compliance. ?? Clinical Notes: -Assessment and treatment plan reviewed with patient. -Compliance with treatment plan importance discussed. -Discussed the risks/benefits of this medication -Discussed medication side effects. -Contact office if symptoms worsen. -Discussed that it can take up to 6-8 weeks to see full therapeutic effects of psychotropic medications. -Crisis prevention hotline 988. ?? * Procedure Codes:?64219 BEHAV ASSMT W/SCORE & DOCD/STAND [id number] CLIN DEPRESSION SCREEN [id number] VISIT COMPLEXITY INHERENT TO ONGOING CARE RELATED TO A PATIENT'S SINGLE, SERIOUS CONDITION OR A COMPLEX CONDITION * Follow Up:?6 Weeks (Reason: med f/u) * Billing Information: * Visit Code:? 38315 OFFICE OUTPATIENT VISIT 25 MINUTES DETAILED HISTORY AND EXAM/MODERATE MEDICAL DECISION MAKING. * Procedure Codes:? 79168 BEHAV ASSMT W/SCORE & DOCD/STAND INSTRUMENT. G8431 CLIN DEPRESSION SCREEN DOC. G2211 VISIT COMPLEXITY INHERENT TO ONGOING CARE RELATED TO A PATIENT'S SINGLE, SERIOUS CONDITION OR A COMPLEX CONDITION. * EDITOR Sign off status: Completed true * Provider:?ELDER ESCAMILLA Date:? Generated for Saranya estrada/Ruthie/Sofya on:?11/04/2024 09:06 PM NEWS EDITOR History and Physical Notes * HPI (History of Present Illness) Category Sub-Category Detail Notes Category Not es History of Presenting Problem Anxiety with excessive worry, with restlessness-- stable Here for follow up. Abilify increased last apt. Reports he has not noted a significant change. Continues to feel loss of interest, low motivation; I feel run down . States I feel down more than I should be; I dont feel hopeless , no suicidal ideation. Denies feeling anxious, no panic attacks recently. Sleep is fair, getting about 6 hours nightly. He has not been wearing his CPAP. Appetite is fair. Depression Rates depression 2/1 0 with 10 being most severe. Suicidal ideation denies Sleep disturbance with a history of sl eep apnea-CPAP Psychosis no hx psychosis Mood lability no hx francisco Memory SLUMS=26 08/10/2024 Past Psychiatric Hospitalizations previous admissions/IOP/PHP: none history of SI/SA: denies family psychiatric history: parents-depression previously trialled medications: Prozac, Vraylar (not covered) history of neglect/abuse/trauma: denies substance use history: history of alcohol dependence-was drinking 8 beers daily or a pint of whiskey-quit heavy drinking in 2012 Depression screening PHQ-9 Little inte rest or pleasure in doing things: Nearly every day Feeling down, depressed, or hopeless: Mo re than half the days Trouble falling or staying a sleep, or sleeping too much: More than half the days Feeling tired or having little energy: N early every day Poor appetite or overeating: Several day s Feeling bad about yourself o r that you are a failure, or have let yourself or your family down: Not at all Trouble concentrating on thi ngs, such as reading the newspaper or watching television: Nearly every day Moving or speaking so slowly that other people could have noticed; or the opposite, being so fidgety or restless that you have been moving around a lot more than usual: Not at all Thoughts that you would be b adonis off or of hurting yourself in some way: Not at all Total Score: 14 Interpretation: Moderate Depression Intervention Depression Screening Findings: P ositve Follow-Up for Depression: [facility] treatment assessment, Patient follow-up to return when and if necessary Suicide Risk Assessment Performed: 09/24 Additional Evaluation for Depression: Ps ychiatric interview and evaluation Name of the standardized too l used for adult depression screening:: Patient Health Questionnaire (PHQ-9) Depression Screening PHQ-2 (2015 Edition) Little interest or pleasure in doing things?: Nearly every day Feeling down, depressed, or hopeless?: M ore than half the days Total Score: 5 DEMARIO-7 (2018 Edition) Feeling nervous, anxious, o r on edge: Not at all Not being able to stop or control worryi ng: Not at all Worrying too much about different things : Not at all Trouble relaxing: More than half the day s Being so restless that it is hard to sit still: Several days Becoming easily annoyed or irritable: Se veral days Feeling afraid as if something awful chey ht happen: Several days Total DEMARIO-7 Score: 5 Interpretation of Total: (5 to 9) Mild Examination Category Sub-Category Detail Notes Category Not es Psychiatry Appearance: well-groomed Attitude: cooperative Psychomotor activity: within normal rang e Abnormal body movements: none Attention: good Degree of awareness of surroundings: wit hin normal limits Orientation: awake, alert and yue ented x 3 Affect / mood: appropriate Speech / language: normal rate, volume, and articulation (RVR), clear and coherent, appropriate pitch/modulation Insight: good Judgement: good Thought process: intact Thought content: appropriate Perceptual disorders: no perceptual diso rder noted Suicidal ideation: none Homicidal ideation: none Delusions: no Hallucinations: no Dementia Safety concern scree stephen for dangerousness to self and environment risks provided:: Yes ?What action was taken to mitigate the r isk?: Education provided ?Topics discussed for enviro nmental risks:: Home safety risks that could arise from cooking or smoking, Access to firearms or other weapons, Access to potentially dangerous chemicals and other materials ?Topics discussed for danger ousness to self:: Medication misuse, Financial mismanagement ?Safety concern mitigation recommendatio n provided:: Not required ?Screening Result:: Negative Caregiver education and support provided : Yes Functional Assessment Venegas Index of ADL Score:: 6 1 point for independence, 0 for help 1 point for independence, 0 for help 1 point for independence, 0 for help Physical Functioning Personal hygiene: i ncluding combing hair, brushing teeth, shaving, applying makeup, washing/drying face and hands (exclude baths and showers): Independent Bathing: how client takes fu ll-body bath/shower or sponge bath (exclude washing of back and hair). Includes how each part of body is bathed: arms, upper and lower legs, chest, abdomen, perineal area. (code for most dependent episode in last 7 days): Independent Dressing upper body: how cli ent dresses and undresses (street clothes, underwear) above the waist, includes prostheses, orthotics, fasteners, pullovers, etc.: Independent Eating - Including taking in food by any method, including tube feedings: Independent Toilet use: including using the toilet room or commode, bedpan, urinal, transferring on/off toilet, cleaning self after toilet use or incontinent episode, changing pad, managing any special devices required (ostomy or catheter), and adjusting clothes.: Independent Transfer: including moving t o and between surfaces--to/from bed, chair, wheelchair, standing position (excludes to/from bath/toilet): Independent Continence:: Independent (1)
--- OUTSIDE RECORDS SUMMARY | 2024-11-04 21:06 | XMS_ITS ---
Author Organization [facility] [employer] [facility] Address [address] [facility] [address] [address] Care Team Providers Care Kaitara Taraka Name Role Phone Ashlee PETERSON, Sherry Primary Care Provider Mary Torrie Espinosa Unavailable [phone] REASON FOR VISIT Update Demographics - Personal Info Social History Sex Assigned At : Social History Observation Description Sex Assigned At Male Encounters Encounter Location Date Provider Diagnosis [facility] [employer] [facility] [address] [facility] [address] [address] [facility] [address] [place] [address] 09/24/2024 Torrie Peace Plan Of Treatment Next Appt Details Provider Name:Torrie Peace, 11/05/2024 08:00:00 AM, [address], [facility] [address], [place], [address], Progress Notes * RILEY GONZALEZ CDOB:[birth year] (69 yo M)Acc No.[id number]:09/24/2024 Patient:?RILEY GONZALEZ :1955???Age:69 Y???Sex:Male Address:[address] [place], [address] * * Date:?
--- OUTSIDE RECORDS SUMMARY | 2024-11-04 21:06 | XMS_ITS | CONTINUITY OF CARE DOCUMENT ---
Author Name onofre, onofre Address Unknown Organization [facility] Address [address] [facility] [address] [place] [address] Phone [phone] Care Team Providers Care Credit Union Teller Name Role Phone Guy PETERSON, Ralph Unavailable [phone] BALWINDER PETERSON, ALFRED Unavailable [phone] BALWINDER PETERSON, ALFRED Unavailable PROBLEMS Condition Status Date Provider Notes Hypertension active Doug Ahmedzai Prediabetes active Doug Ahmedzai Dyspnea on exertion--echo ef nl, 04/2024 active Doug Ahmedzai CVA active Doug Ahmedzai Sleep apnea active Doug Ahmedzai Carotid arterial disease, 50 -69% RAZ 04/2024 active Doug Ahmedzai PALPITATIONS BIGEMINY, TRIGEMINY completed - Doug Ahmedzai CHEST PAIN,-07/20 NUC EF 58 completed - Doug A hmedzai ENCOUNTERS Date Type Provider Location Encounter Diag nosis - In-person encounter Office Visit Ralph Tovar MD [facility] Dyspnea on exertion--echo ef nl, 04/2024Sleep apneaCarotid arterial disease, 50-69% RAZ 04/2024 - In-person encounter Office Visit Ralph Tovar MD [facility] CHEST PAIN,-07/20 NUC EF 58PALPITATIONS BIGEMINY, TRIGEMINYHypertensionPrediabetesDyspnea on exertion--echo ef nl, VASleep apneaCarotid arterial disease, 50-69% RAZ 04/2024 - In-person encounter Office Visit Ralph Tovar MD [facility] CHEST PAIN,-07/20 NUC EF 58 VITAL SIGNS Date Observation Value Provider Body Mass Index (Ratio) 32.91 kg/m2 Zach Tovar MD blood pressure, cuff size regular Ayaz young Moreira blood pressure, diastolic 78 mm[Hg] Ta rubiha Moreira blood pressure, systolic 128 mm[Hg] [facility] oxygen saturation, oximetry 96 % Elsi Moreira pulse rate 59 /min Elsi Moreira weight E&M 236 [lb_av] Elsi Moreira respiratory rate E&M 12 /min Elsi Moreira height E&M 71 [in_i] Elsi Moreira Body Mass Index (Ratio) 32.35 kg/m2 Zach Tovar MD blood pressure, diastolic -1 mm[Hg] Romelia nkLogic blood pressure, systolic 131 mm[Hg] Latoya kLogic blood pressure, diastolic 79 mm[Hg] Bharathi rret blood pressure, systolic 131 mm[Hg] Jar ret pulse rate 66 /min [facility] er y blood pressure, cuff size regular Ja rret oxygen saturation, oximetry 97 % Hill respiratory rate E&M 16 /min Hill weight E&M 232 [lb_av] Hill erda y height E&M 71 [in_i] Hill Easterda y Body Mass Index (Ratio) 25.20 kg/m2 Zach Tovar MD height E&M 71 [in_i] Ralph Tovar MD blood pressure, diastolic 88 mm[Hg] Bharathi Bhat RN blood pressure, systolic 155 mm[Hg] Hunter Chackos RN pulse rate 67 /min Hunter Chackos RN oxygen saturation, oximetry 99 % Hunter Chackos RN respiratory rate E&M 18 /min Hunter careyneelima RN weight E&M 245 [lb_av] Ralph Tovar MD ALLERGIES No Known Drug Allergies RESULTS Date Observation Value Provider Reference Range Interpretation Location 3 pro brain natriuretic peptide 220 pg/mL [facility] 0-376 3 c-reactive protein, quantitative, serum 1.08 mg/L [facility] 0.00-3.00 3 free thyroxine index 2.2 [facility] 1.2-4.9 3 triiodothyronine resin uptake 26 % [facility] 24-39 3 thyroxine, serum, total 8.5 ug/dL [facility] 4.5-12.0 3 thyroid stimulating hormone, serum 0.853 u[IU]/mL [facility] 0.450-4.500 3 lipoprotein, beta, serum, point, quantitative, calculated 63 mg/dL [facility] 0-99 3 HDL cholesterol, serum 46 mg/dL [facility] >39 3 triglyceride, serum, random 88 mg/dL [facility] 0-149 3 cholesterol, serum 126 mg/dL [facility] 225-422 7732/07/1 3 alanine aminotransferase (SGPT), serum 52 1/L [facility] 0-44 High 3 aspartate aminotransferase (SGOT), serum 42 1/L [facility] 0-40 High 3 alkaline phosphatase, serum 113 1/L [facility] 44-121 3 bilirubin, serum, total 0.5 mg/dL [facility] 0.0-1.2 3 globulin, serum 2.5 [facility] 1.5-4.5 3 albumin, serum 4.3 g/dL [facility] 3.9-4.9 3 protein, total, serum 6.8 g/dL [facility] 6.0-8.5 3 calcium, serum 10.0 mg/dL [facility] 8.6-10.2 3 carbon dioxide, venous blood 24 mmol/L [facility] 20-29 3 chloride, serum 104 mmol/L [facility] 96-106 3 potassium, serum 5.1 mmol/L [facility] 3.5-5.2 3 sodium, serum 142 mmol/L [facility] 084-353 0599/07/1 3 urea nitrogen/creatinine ratio, serum 15 [facility] 10-24 3 creatinine, serum 1.06 mg/dL [facility] 0.76-1.27 3 urea nitrogen, blood 16 mg/dL [facility] 8-27 3 blood glucose, random 104 mg/dL [facility] 70-99 High 3 hemoglobin A1C, blood, as % of total hemoglobin 6.1 % [facility] 4.8-5.6 High 3 basophil count, absolute 0.0 x10E3/uL [facility] 0.0-0.2 3 Eosinophil Absolute Count 0.5 X10E3/UL [facility] 0.0-0.4 High 3 monocyte count, blood, automated 0.9 X10E3/UL [facility] 0.1-0.9 3 lymphocyte count, blood, automated 2.2 X10E3/UL [facility] 0.7-3.1 3 Absolute Neutrophils 6.1 X10E3/UL [facility] 1.4-7.0 3 basophils as percent of blood leukocytes 0 % [facility] Not Estab. 3 eosinophils as percent of blood leukocytes 5 % [facility] Not Estab. 3 monocytes as percent of blood leukocytes 9 % [facility] Not Estab. 3 lymphocytes as percent of blood leukocytes 22 % [facility] Not Estab. 3 neutrophils as percent of blood leukocytes 63 % [facility] Not Estab. 3 platelet count 296 X10E3/UL [facility] 139-526 3667/07/1 3 red blood cell distribution width 12.6 % [facility] 11.6-15.4 3 mean corpuscular hemoglobin concentration, RBC 32.2 G/DL [facility] 31.5-35.7 3 mean corpuscular hemoglobin, RBC 30.7 pg [facility] 26.6-33.0 3 mean corpuscular volume, RBC 95 fL [facility] 79-97 3 hematocrit, blood 44.1 % [facility] 37.5-51.0 3 hemoglobin, blood 14.2 g/dL [facility] 13.0-17.7 3 erythrocyte (RBC) count 4.63 X10E6/UL [facility] 4.14-5.80 3 leukocyte count, blood 9.8 X10E3/UL [facility] 3.4-10.8 HISTORY OF MEDICATION USE Medication Status Instructions Dates Provider Indications Com ments memantine 10 mg tablet active [facility] tamsulosin 0.4 mg capsule active [facility] metoprolol tartrate 25 mg tablet [facility] 300 mg capsule active [facility] donepezil 5 mg tablet active [facility] atorvastatin 80 mg tablet active [facility] metformin 500 mg tablet active [facility] fluoxetine 40 mg capsule [facility] losartan 50 mg tablet active [facility] cyclobenzaprine 5 mg tablet active [facility] metoprolol tartrate 25 mg tablet completed 0.5 tablet twice a day - Doug Ahmedzai succinate changed to tartrate do to unavailability MULTIVITAMINS ORAL CAPSULE completed 1 tablet once a day - Doug Cui VITAMIN B12 TABLET completed 1 tablet once a day - Doug Cui CALCIUM CARBONATE TABLET completed 1 tablet once a day - Doug Cui ASPIRIN 81 MG ORAL TABLET completed 1 tablet once a day - Doug Cui SOCIAL HISTORY Date Observation Value Provider smoking status Non-smoker Doug Cui smoking status Non-smoker Doug Cui social history E&M Marital Statu s: L [place] with family/friends E thnicity: Hunter Bhat RN caffeine use, averag e drinks per day yes Hunter Bhat RN alcohol use, average drinks per day no Hunter Bhat RN smoking status Non-Smoker Hunter Bhat RN social history reviewed E&M reviewed Hunter Bhat RN physical exercise, f requency, days per week no [facility] caffeine use, averag e drinks per day yes [facility] alcohol use, average drinks per day social basis only [facility] number of years as a smoker 10 years or m ore [facility] status [facility] MENTAL STATUS Date Observation Value Provider assessment of judgme nt and insight E&M Alert and oriented to time, place and person. Mood and affect are normal. Hunter Bhat RN INSURANCE PROVIDERS Payer name Policy type / Coverage type Media red libertarian ID [employer] PPO O [id number] ADVANCE DIRECTIVES Name Date DISCUSSED - NO DECISION MADE TREATMENT PLAN Date Name Performer Cardiology Doug Cui Cardiology Doug Cui Cardiology:This visi t has been a part of the consistent, comprehensive, and ongoing management of the chronic medical condition(s) listed above for the patient. BP today: 128/78 P rior BP: 131/-1 (04/06/2024) Labs Reviewed: C reat: 1.06 (04/24/2024) C hol: 126 (04/24/2024) HDL: 46 (04/24/2024) LDL: 63 (04/24/2024) T (04/24/2024) His updated medication list for this problem includes: Metoprolol Tartrate 25 Mg Tablet (Metoprolol tartrate) Losartan 50 Mg Tablet (Losartan) [facility] Cardiology [facility] Cardiology [facility] Cardiology: B P today: 131/79 P rior BP: 155/88 (08/02/2008) His updated medication list for this problem includes: Metoprolol Tartrate 25 Mg Tablet (Metoprolol tartrate) Losartan 50 Mg Tablet (Losartan) Orders: C omplete Echo (14596) C OMPREHENSIVE METABOLIC PANEL, W/EGFR (60936) C BC (INCLUDES DIFF/PLT) (6399) H EMOGLOBIN A1c (496) L IPID PANEL (7600) T SH, free T4, total T3 (7444) P ROBNP, N TERMINAL (47894) C RP, high sensitivity (08491) [facility] Cardiology: O rders: C omplete Echo (20244) C OMPREHENSIVE METABOLIC PANEL, W/EGFR (45426) C BC (INCLUDES DIFF/PLT) (6399) H EMOGLOBIN A1c (496) L IPID PANEL (7600) T SH, free T4, total T3 (7444) P ROBNP, N TERMINAL (60950) C RP, high sensitivity (56125) [facility] Cardiology: O rders: C omplete Echo (03937) C arotid Duplex Bilateral (CPT-53499) C OMPREHENSIVE METABOLIC PANEL, W/EGFR (46906) C BC (INCLUDES DIFF/PLT) (6399) H EMOGLOBIN A1c (496) L IPID PANEL (7600) T SH, free T4, total T3 (7444) P ROBNP, N TERMINAL (32888) C RP, high sensitivity (15901) [facility] Cardiology: O rders: C omplete Echo (49143) C OMPREHENSIVE METABOLIC PANEL, W/EGFR (37162) C BC (INCLUDES DIFF/PLT) (6399) H EMOGLOBIN A1c (496) L IPID PANEL (3370) T SH, free T4, total T3 (9444) P ROBNP, N TERMINAL (53785) C RP, high sensitivity (32772) Doug Luciano Cardiology: O rders: S lee Study Home (CPT-10548) [facility] office visit: H is updated medication list for this problem includes: Aspirin 81 Mg Tabs (Aspirin) ..... One tab. daily Metoprolol Succinate 25 Mg Tb24 (Metoprolol succinate) BP today: 155/88 Prior BP: / () N uclear Stress Findings: 1. No chest pain and rare VPC's 2 . Pt had no ST segment depression in the inferior or lateral leads to suggest ischemia 3 . Test considered to be negative by ECG criteria. 2 . Normal left ventricular size and function with a calculated ejection fraction of 58%. 3 . Myocardial scintigraphy is normal without evidence for previous myocardial infarction or reversible ischemia. (07/21/2008) Ralph Tovar MD office visit: H is updated medication list for this problem includes: Aspirin 81 Mg Tabs (Aspirin) ..... One tab. daily Metoprolol Succinate 25 Mg Tb24 (Metoprolol succinate) BP today: 155/88 Prior BP: / () N uclear Stress Findings: 1. No chest pain and rare VPC's 2 . Pt had no ST segment depression in the inferior or lateral leads to suggest ischemia 3 . Test considered to be negative by ECG criteria. 2 . Normal left ventricular size and function with a calculated ejection fraction of 58%. 3 . Myocardial scintigraphy is normal without evidence for previous myocardial infarction or reversible ischemia. (07/21/2008) Ralph Tovar MD Date Name Stress [facility] Sleep Study Home CRP, high sensitivit y PROBNP, N TERMINAL TSH, free T4, total T3 LIPID PANEL HEMOGLOBIN A1c CBC (INCLUDES DIFF/P LT) COMPREHENSIVE METABO LIC PANEL, W/EGFR Carotid Duplex Bilat eral Complete Echo HISTORY OF PROCEDURES Procedure Date Procedure Name Provider Procedure Notes S tatus EKG Ralph Tovar MD completed
--- OUTSIDE RECORDS SUMMARY | 2024-11-04 21:07 | XMS_ITS | Patient Health Record ---
Author Organization [facility] [place] Address [address] [place] [address] Care Team Providers Care Vp Corporate Partnerships Name Role Phone Ashlee PETERSON, Sherry Primary Care Provider Torrie Silva Unavailable [phone] Migration, Provider Unavailable Unavailable Allergies No Known Allergies Reason For Referral No Information Medications Medication SIG (Take, Route, Frequency, Duration) Notes Start Date End Date Status FLUoxetine HCl 20 MG 1 capsule Oral Once a day for 90 days Active buPROPion HCl ER (XL) 150 MG 1 tablet in the morning Orally Once a day for 90 days 09/24/2024 Active Memantine HCl 10 MG Oral 04/24/2023 Active Atorvastatin Calcium 80 MG Oral 04/24/2023 Unknown ARIPiprazole 5 MG 1 tablet Oral Once a day for 90 days Active Losartan Potassium 50 MG Oral 04/24/2023 Unknown tiZANidine HCl 2 MG Oral 04/24/2023 Unknown Metoprolol Tartrate 25 MG Oral 04/24/2023 Unknown Tamsulosin HCl 0.4 MG Oral 04/24/2023 Unknown Immunizations Vaccine Route Administration Date Status Comme nts COVID-19 (SARS-COV-2) vaccin e, unspecified Unknown 09/05/2021 Administered COVID-19 (SARS-COV-2) vaccin e, unspecified Unknown 05/11/2022 Administered COVID-19 (SARS-COV-2) vaccin e, unspecified Unknown 07/30/2022 Administered Social History Sex Assigned At : Social History Observation Description Sex Assigned At Male Household Question Answer Notes Marital status: Problems Problem Type SNOMED Code ICD Code Onset Dates Problem Status W/U Status Risk Notes Problem Chronic alcoholism in remission (507749776) Alcohol dependence, in remission (F10.21) Active confirmed Problem Severe recurrent major depression without psychotic features (75390044) Major depressive disorder, recurrent severe without psychotic features (F33.2) Active confirmed Problem Generalized anxiety disorder (87797871) Generalized anxiety disorder (F41.1) Active confirmed Problem Mild neurocognitive disorder (166416094) Mild neurocognitive disorder (G31.84) Active confirmed Encounters Encounter Location Date Provider Diagnosis [facility] [place] [address] [facility] [address] [place] [address] 05/11/2024 Torrie Nata Major depressive disorder, recurrent severe without psychotic features F33.2 ; Generalized anxiety disorder F41.1 and Alcohol dependence, in remission F10.21 [facility] [address] [facility] [address] [address] 06/11/2024 Torrie Nata Major depressive disorder, recurrent severe without psychotic features F33.2 ; Generalized anxiety disorder F41.1 and Alcohol dependence, in remission F10.21 [facility] [place] [address] [facility] [address] [address] 07/09/2024 Torrie Nata Major depressive disorder, recurrent severe without psychotic features F33.2 ; Generalized anxiety disorder F41.1 and Alcohol dependence, in remission F10.21 [facility] [address] [facility] [address] [address] 08/06/2024 Torrie Nata [facility] [employer] [place] [address] [address] 08/10/2024 Torrie Nata Major depressive disorder, recurrent severe without psychotic features F33.2 ; Generalized anxiety disorder F41.1 ; Alcohol dependence, in remission F10.21 and Mild neurocognitive disorder G31.84 [facility] [address] [facility] [address] [place] [address] 09/24/2024 Torrie Nata Major depressive disorder, recurrent severe without psychotic features F33.2 ; Generalized anxiety disorder F41.1 ; Alcohol dependence, in remission F10.21 and Mild neurocognitive disorder G31.84 [facility] [address] [facility] [address] [address] 02/28/2024 Provider Migration [facility] [address] [place] [address] 02/29/2024 Provider Migration [facility] [address] [facility] [address] [facility] [address] [place] [address] 05/24/2024 Torrie Peace Major depressive disorder, recurrent severe without psychotic features F33.2 [facility] [address] [facility] [address] [facility] [address] [place] [address] 09/24/2024 Torrie Nata [facility] [address] [facility] [address] [facility] [address] [place] [address] 05/10/2024 Torriemellissa Peace [facility] [address] [facility] [address] [facility] [address] [place] [address] 05/18/2024 Torrie Peace Major depressive disorder, recurrent severe without psychotic features F33.2 Assessments Encounter Date Diagnosis (ICD Code) Assessment Notes Treatment Notes Treatment Clinical Notes Section Notes 05/11/2024 Major depressive disorder, recurrent severe without psychotic features (ICD-10 - F33.2) FLUOXETINE 80MG DAILY PER PCP 05/11/2024 Generalized anxiety disorder (ICD-10 - F41.1) 06/11/2024 Major depressive disorder, recurrent severe without psychotic features (ICD-10 - F33.2) 09/24/2024 Major depressive disorder, recurrent severe without [...] common with first generation antipsychotics) and more. 08/10/2024 Major depressive disorder, recurrent severe without psychotic [...] common with first generation antipsychotics) and more. 07/09/2024 Major depressive disorder, recurrent severe without psychotic [...] common with first generation antipsychotics) and more. 05/18/2024 Major depressive disorder, recurrent severe without psychotic features (ICD-10 - F33.2) 05/11/2024 Alcohol dependence, in remission (ICD-10 - F10.21) 07/09/2024 Generalized anxiety disorder (ICD-10 - F41.1) 05/24/2024 Major depressive disorder, recurrent severe without psychotic features (ICD-10 - F33.2) Electronic Prior Authorization was requested for ARIPiprazole 2 MG Tablet. Provider can order medication once approval received. 08/10/2024 Generalized anxiety disorder (ICD-10 - F41.1) 09/24/2024 Generalized anxiety disorder (ICD-10 - F41.1) 06/11/2024 Generalized anxiety disorder (ICD-10 - F41.1) 09/24/2024 Alcohol dependence, in remission (ICD-10 - F10.21) 06/11/2024 Alcohol dependence, in remission (ICD-10 - F10.21) 08/10/2024 Mild neurocognitive disorder (ICD-10 - G31.84) Memantine 10mg BID per PCP 07/09/2024 Alcohol dependence, in remission (ICD-10 - F10.21) 08/10/2024 Alcohol dependence, in remission (ICD-10 - F10.21) 09/24/2024 Mild neurocognitive disorder (ICD-10 - G31.84) Memantine 10mg BID per PCP 05/11/2024 Other Start Vraylar 1.5mg daily for depression Continue fluoxetine 80mg daily per PCP. Patient educated on all medications including potential benefits, side effects, risks. Educated on proper dosing schedule and importance of compliance. 06/11/2024 Other Decrease Fluoxetine to 40mg daily due to irritability. Discussed monitoring for s/s of increased depression, anxiety and call office if symptoms worsen. Continue Abilify 2mg daily. Patient educated on all medications including potential benefits, side effects, risks. Educated on proper dosing schedule and importance of compliance. If irritability continues- can consider d/c abilify and starting latuda. 07/09/2024 Other Decrease fluoxetine to 40mg daily due to apathy, loss of interest. Monitor cognition, on memantine 10mg BID. SLUMS next apt. Patient educated on all medications including potential benefits, side effects, risks. Educated on proper dosing schedule and importance of compliance. 08/10/2024 Other Increase Abilify to 5mg daily for mood Patient educated on all medications including potential benefits, side effects, risks. Educated on proper dosing schedule and importance of compliance. SLUMS completed today. 09/24/2024 Other Start Wellbutrin 150mg daily for [...] effects of psychotropic medications. -Crisis prevention hotline 838. Plan Of Treatment Next Appt Details Provider Name:Torrie Peace, 11/05/2024 08:00:00 AM, [address] [facility] [address] [facility] [address], [place], [address], Insurance Providers Payer Name Payer Address Payer Phone Subscriber Number Group Number Insured Name Patient Relationship to Insured Coverage Start Date Coverage End Date [employer] Re[employer]emen t/Advantag e - Ppo [address] [address] [place] [address] [id number] RILEY GONZALEZ Self - patient is the insured
--- OUTSIDE RECORDS SUMMARY | 2024-11-04 21:07 | XMS_ITS ---
Author Organization [facility] Address [address] [place] [address] Care Team Providers Care Junior Data Analyst Name Role Phone Ashlee PETERSON, Sherry Primary Care Provider Mary Nilo Espinosa Unavailable [phone] Allergies No Known Allergies REASON FOR VISIT Establish Follow up visit Medications Medication SIG (Take, Route, Frequency, Duration) Notes Start Date End Date Status ARIPiprazole 5 MG 1 tablet Oral Once a day for 90 days Active Memantine HCl 10 MG Oral 04/24/2023 Active FLUoxetine HCl 40 MG 1 capsule Oral Once a day for 90 days Active Atorvastatin Calcium 80 MG Oral 04/24/2023 Unknown tiZANidine HCl 2 MG Oral 04/24/2023 Unknown Losartan Potassium 50 MG Oral 04/24/2023 Unknown Tamsulosin HCl 0.4 MG Oral 04/24/2023 Unknown Metoprolol Tartrate 25 MG Oral 04/24/2023 Unknown Social History Sex Assigned At : Social History Observation Description Sex Assigned At Male Household Question Answer Notes Marital status: Problems Problem Type SNOMED Code ICD Code Onset Dates Problem Status W/U Status Risk Notes Problem Mild neurocognitive disorder (131674755) Mild neurocognitive disorder (G31.84) Active confirmed Encounters Encounter Location Date Provider Diagnosis [facility] [address] [place] [address] 08/10/2024 Nilo Peace Major depressive disorder, recurrent severe without psychotic features F33.2 ; Generalized anxiety disorder F41.1 ; Alcohol dependence, in remission F10.21 and Mild neurocognitive disorder G31.84 Assessments Encounter Date Diagnosis (ICD Code) Assessment Notes Treatment Notes Treatment Clinical Notes Section Notes 08/10/2024 Major depressive disorder, recurrent severe without [...] with first generation antipsychotics) and more. 08/10/2024 Generalized anxiety disorder (ICD-10 - F41.1) 08/10/2024 Alcohol dependence, in remission (ICD-10 - F10.21) 08/10/2024 Mild neurocognitive disorder (ICD-10 - G31.84) Memantine 10mg BID per PCP 08/10/2024 Other Increase Abilify to 5mg daily for mood Patient educated on all medications including potential benefits, side effects, risks. Educated on proper dosing schedule and importance of compliance. SLUMS completed today. Plan Of Treatment Medication Medication Name Sig Start Date Stop Date Notes ARIPiprazole 5 MG 1 tablet Oral Once a day for 90 days FLUoxetine HCl 40 MG 1 capsule Oral Once a day [...] Memantine 1 0mg BID per PCP Other Increase Abilify to 5mg daily for mood Patient educated on all medications including potential benefits, side effects, risks. Educated on proper dosing schedule and importance of compliance. SLUMS completed today. Next Appt Details Follow Up: 6 Weeks, Reason: medication follow up Provider Name:Nilo Peace, 11/05/2024 08:00:00 AM, [address] [facility] [address] [facility], [facility] [address], [address], Progress Notes * RILEY GONZALEZ CDOB:[birth year] (69 yo M)Acc No.[id number]:08/10/2024 Patient:?RILEY GONZALEZ Provider:?NILO PEACE PMHNP :1955???Age:69 Y???Sex:Male Dominick e:08/10/2024 [address] [place] [address] Pcp:Sherry Rosado MD Subjective: * Chief Complaints: * ???1. Establish Follow up vi sit. * HPI: ???History of Presenting Problem:?Anxiety?with excessive worry, with restlessness-- stable?.?Depression?Rates depression 2/10 with 10 being most severe.?.?Mood lability?no hx francisco.?Psychosis?no hx psychosis.?Sleep disturbance?with a history of sleep apnea-CPAP.?Suicidal ideation?denies.?Memory?SLUMS=26? ?08/10/2024?.?Here for follow up. Fluoxetine decreased last apt due to apathy. Continues to report loss of interest, it is hard to be excited about anything; it is hard to get into something . However, states he is not feeling sad or depressed, just not giddy . Denies feeling anxious. No panic attacks.? Sleep is fair, getting about 7-9 hours nightly. Reports he feels better when he is able to wear his CPAP through the night.? Appetite is good. ???Past Psychiatric Hospitalizations:? previous admissions/IOP/PHP: none history of SI/SA: denies family psychiatric history: parents-depression previously trialled medications: Prozac, Wellbutrin, Vraylar (not covered) history of neglect/abuse/trauma: denies substance use history: history of alcohol dependence-was drinking 8 beers daily or a pint of whiskey-quit heavy drinking in 2012. ???Depression screening:?PHQ-9?Little interest or pleasure in doing things?Several days,?Feeling down, depressed, or hopeless?Several days,?Trouble falling or staying asleep, or sleeping too much?Not at all,?Feeling tired or having little energy?Nearly every day,?Poor [...] been moving around a lot more than usual?More than half the days,?Thoughts that you would be better off or of hurting yourself in some way?Not at all,?Total Score?11,?Interpretation?Moderate Depression.?Intervention?Depression Screening Findings?Positve,?Follow-Up for Depression?Emotional support education, Management of mental health treatment,?Additional Evaluation for Depression?Psychiatric interview and evaluation,?Name of the standardized tool used for adult depression screening:?Patient Health Questionnaire (PHQ-9).? * ROS:?Psychiatric:?Patient denies?suicidal thoughts, francisco, psychosis, depressed mood, anxiety, irritability, auditory / visual hallucinations.?Comments?See HPI for details.? * Medical History:?Problems: C hronic alcoholism in remission, Generalized anxiety disorder, Moderately severe recurrent major depression, Severe recurrent major depression without psychotic features, ,. * Family History:?Unspecified Relation: Alcohol abuse .?Maternal Uncle: Diabetes mellitus .?Father: Epilepsy .?Paternal Uncle: History of attempted suicide , Depressive disorder .?Brother: Schizophrenia , Bipolar disorder , Depressive disorder , Anxiety disorder .? * Social History:?Migrated Social History:?Migrated Social History: Alcohol Intake: None 04/24/2023,Tobacco Years: Former smoker 03/14/2023. ???Household:?Household?Marital status:?.? * Medications:?Taking ARIPipra zole 2 MG Tablet 1 tablet Oral Once a day , Taking FLUoxetine HCl 40 MG Capsule 1 capsule Oral Once a day , Taking Memantine HCl 10 MG Tablet Oral , Unknown Atorvastatin Calcium 80 MG Tablet Oral , Unknown tiZANidine HCl 2 MG Capsule Oral , Unknown Losartan Potassium 50 MG Tablet Oral , Unknown Tamsulosin HCl 0.4 MG Capsule Oral , Unknown Metoprolol Tartrate 25 MG Tablet Oral , Medication List reviewed and reconciled with the patient * Allergies:?N.K.D.A. Objective: * Vitals:? * Examination: ???Psychiatry: ?Dementia?.?Appearance:?well-groomed.?Abnormal body movements:?none.?Affect / mood:?appropriate.?Attention:?good.?Attitude:?cooperative.?Homicidal ideation:?none.?Suicidal ideation:?none.?Degree of awareness of surroundings:?within normal limits.?Delusions:?no.?Hallucinations:?no.?Insight:?good.?Judgement:?good.?Orientation:?awake, alert and oriented x 3.?Perceptual disorders:?no perceptual disorder noted.?Psychomotor activity:?within normal range.?Speech / language:?normal rate, volume, and articulation (RVR), clear and coherent.?Thought content:?appropriate.?Thought process:?intact.?Neurology: ?Cognition?.?Cognition Assessment Tools Used?.?Functional Assessment: ?Venegas Index of ADL?.?Physical Functioning?.?1 point for independence, 0 for help. Assessment: * Assessment: 1.?Major depressive disorder , recurrent severe without psychotic features - F33.2 (Primary)???2.?Generalized anxiety disorder - F41.1???3.?Mild neurocognitive disorder - G31.84???4.?Alcohol dependence, in remission - F10.21??? Plan: * Treatment: 2.?Mild neurocognitive disor terence? Notes: Memantine 10mg BID per PCP?? 3.?Others? Notes: Increase Abilify to 5mg daily for mood Patient educated on all medications including potential benefits, side effects, risks. Educated on proper dosing schedule and importance of compliance. SLUMS completed today. ?? * Procedure Codes:?37345 BEHAV ASSMT W/SCORE & DOCD/STAND INSTRUMENT, G2211 VISIT COMPLEXITY INHERENT TO ONGOING CARE RELATED TO A PATIENT'S SINGLE, SERIOUS CONDITION OR A COMPLEX CONDITION, G8431 CLIN DEPRESSION SCREEN DOC, 1123F ACP DISCUSS/DSCN MKR DOCD * Follow Up:?6 Weeks (Reason: medication follow up) * Billing Information: * Visit Code:? 76857 OFFICE OUTPATIENT VISIT 25 MINUTES DETAILED HISTORY AND EXAM/MODERATE MEDICAL DECISION MAKING. * Procedure Codes:? 37876 BEHAV ASSMT W/SCORE & DOCD/STAND INSTRUMENT. G2211 VISIT COMPLEXITY INHERENT TO ONGOING CARE RELATED TO A PATIENT'S SINGLE, SERIOUS CONDITION OR A COMPLEX CONDITION. G8431 CLIN DEPRESSION SCREEN DOC. 1123F ACP DISCUSS/DSCN MKR DOCD. * Sign off status: Completed true * Provider:?ELDER ESCAMILLA Date:? Generated for Saranya estrada/Ruthie/Sofya on:?11/04/2024 09:06 PM [place] [employer] ATTENDANT History and Physical Notes * HPI (History of Present Illness) Category Sub-Category Detail Notes Category Not es History of Presenting Problem Anxiety with excessive worry, with restlessness-- stable Here for follow up. Fluoxetine decreased last apt due to apathy. Continues to report loss of interest, it is hard to be excited about anything; it is hard to get into something . However, states he is not feeling sad or depressed, just not giddy . Denies feeling anxious. No panic attacks. Sleep is fair, getting about 7-9 hours nightly. Reports he feels better when he is able to wear his CPAP through the night. Appetite is good. Depression Rates depression 2/1 0 with 10 being most severe. Suicidal ideation denies Sleep disturbance with a history of sl eep apnea-CPAP Psychosis no hx psychosis Mood lability no hx francisco Memory SLUMS=26 08/10/2024 Past Psychiatric Hospitalizations previous admissions/IOP/PHP: none history of SI/SA: denies family psychiatric history: parents-depression previously trialled medications: Prozac, Wellbutrin, Vraylar (not covered) history of neglect/abuse/trauma: denies substance use history: history of alcohol dependence-was drinking 8 beers daily or a pint of whiskey-quit heavy drinking in 2013 Depression screening PHQ-9 Little inte rest or pleasure in doing things: Several days Feeling down, depressed, or hopeless: Se veral days Trouble falling or staying asleep, or sl eeping too much: Not at all Feeling tired or having little energy: N [...] moving around a lot more than usual: More than half the days Thoughts that you would be b adonis off or of hurting yourself in some way: Not at all Total Score: 11 Interpretation: Moderate Depression Intervention Depression Screening Findings: P ositve Follow-Up for Depression: Em otional support education, Management of mental health treatment Additional Evaluation for Depression: Ps ychiatric interview and evaluation Name of the standardized too l used for adult depression screening:: Patient Health Questionnaire (PHQ-9) Examination Category Sub-Category Detail Notes Category Not es Neurology Cognition ASSESSMENT:: Ass essment and interpretation of higher cerebral function, cognitive testing, Psychologic cognitive testing and assessment Cognition Assessment Tools Used Total score SLUM S: 26 Psychiatry Appearance: well-groomed Attitude: cooperative Psychomotor activity: within normal rang e Abnormal body movements: none Attention: good Degree of awareness of surroundings: wit hin normal limits Orientation: awake, alert and yue ented x 3 Affect / mood: appropriate Speech / language: normal rate, volume, and articulation (RVR), clear and coherent Insight: good Judgement: good Thought process: intact [...]
== END 2024-11-03 11:27 | disposition home or self-care (01) ==
PROVIDERS: PCP Family Medicine; Referring Provider Internal Medicine Gastroenterology; Visit Provider Internal Medicine Gastroenterology
PROC: 0DJD8ZZ Inspection of Lower Intestinal Tract, Via Natural or Artificial Opening Endoscopic (ICD-10-PCS; CPT 45378; principal; 2024-11-03 10:30)
DX: Z12.11 Encounter for screening for malignant neoplasm of colon (principal); K51.40 Inflammatory polyps of colon without complications; E78.2 Mixed hyperlipidemia; I10 Essential (primary) hypertension; D64.9 Anemia, unspecified; E11.9 Type 2 diabetes mellitus without complications; M17.0 Bilateral primary osteoarthritis of knee; K59.01 Slow transit constipation; G47.10 Hypersomnia, unspecified; F32.9 Major depressive disorder, single episode, unspecified; G89.4 Chronic pain syndrome; E66.9 Obesity, unspecified; Z68.35 Body mass index [BMI] 35.0-35.9, adult; Z79.891 Long term (current) use of opiate analgesic; Z79.84 Long term (current) use of oral hypoglycemic drugs; Z79.82 Long term (current) use of aspirin; Z98.890 Other specified postprocedural states; Z87.891 Personal history of nicotine dependence; Z80.9 Family history of malignant neoplasm, unspecified; Z82.49 Family history of ischemic heart disease and other diseases of the circulatory system
CPT/HCPCS: 45385; 82948; 88305; J2003; J2704; J7120

== ENCOUNTER 2024-12-28 09:52 | Outpatient (CLI) | payer MEDICARE, SELFPAY ==
--- OUTSIDE RECORDS SUMMARY | 2024-12-28 11:06 | XMS_ITS ---
Author Organization [facility] Address [address] [facility] [address] [facility] [address] [place] [address] Care Team Providers Care Beef Grinder Name Role Phone Robb Sepulveda MD Primary Care Provider Torrie Carlos Unavailable [phone] REASON FOR VISIT GEN Lamb Social History Sex Assigned At : Social History Observation Description Sex Assigned At Male Encounters Encounter Location Date Provider Diagnosis [place] [id number] [facility] [address] [place] [address] 12/15/2024 Torrie Peace Plan Of Treatment Next Appt Details Provider Name:Torrie Peace, 01/05/2025 08:15:00 AM, [facility] [facility] [address], [address], [address], Provider Name:Ernie mendoza, 02/07/2025 09:00:00 AM, [address] [place] [address] [address], [address], Progress Notes * RILEY GONZALEZ CDOB:[birth year] (69 yo M)Acc No.[id number]:12/15/2024 Patient: Wilder RILEY Kaur :1955 A ge:69 Y S ex:Male Phone: Address:[address] [place], [address] * true * Date: Generated for Printi ng/Faxing/eTransmitting on: 0 12/28/2024 11:05 AM CDT
--- OUTSIDE RECORDS SUMMARY | 2024-12-28 11:06 | XMS_ITS ---
Author Organization [facility] Address [address] [facility] [address] [facility] [address] [place] [address] Care Team Providers Care Nursing Student Name Role Phone Robb Sepulveda MD Primary Care Provider Torrie Carlos Unavailable [phone] REASON FOR VISIT Therapy Social History Sex Assigned At : Social History Observation Description Sex Assigned At Male Encounters Encounter Location Date Provider Diagnosis [place] [address] [facility] [address] [facility] [address] [place] [address] 12/15/2024 Torrie Peace Plan Of Treatment Next Appt Details Provider Name:Torrie Peace, 01/05/2025 08:15:00 AM, [facility] [address], [address], [address], Provider Name:Ernie mendoza, 02/07/2025 09:00:00 AM, [address] [place] [address] [address], [address], Progress Notes * RILEY GONZALEZ CDOB:[birth year] (69 yo M)Acc No.[id number]:12/15/2024 Patient: Wilder RILEY MILLER :1955 A ge:69 Y S ex:Male Phone: Address:[address] [place], [address] * true * Date: Generated for Printi ng/Fatog/eTransmitting on: 0 12/28/2024 11:06 AM CDT
--- OUTSIDE RECORDS SUMMARY | 2024-12-28 11:06 | XMS_ITS ---
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 Role Phone Robb Sepulveda MD Primary Care Provider UnavailTorrie Williamson Unavailable [phone] Allergies No Known Allergies REASON FOR VISIT Pt requested appointment, Depression screening positive, Functional status reviewed Medications Medication SIG (Take, Route, Frequency, Duration) Notes Start Date End Date Status Memantine HCl 10 MG Oral 04/24/2023 Active traZODone HCl 50 MG 1 tablet at bedtime Oral Once a day for 90 days Active Rexulti 1 MG 1 tablet Orally Once a day for 30 day(s) 12/15/2024 Active Metoprolol Tartrate 25 MG Oral 04/24/2023 Unknown Tamsulosin HCl 0.4 MG Oral 04/24/2023 Unknown Losartan Potassium 50 MG Oral 04/24/2023 Unknown FLUoxetine HCl 20 MG 2 capsule Oral Once a day for 90 days Active tiZANidine HCl 2 MG Oral 04/24/2023 Unknown Atorvastatin Calcium 80 MG Oral 04/24/2023 Unknown Social History Tobacco Use: Social History Observation Description Date Details (start date - stop date) Never Smoker NA - NA Sex Assigned At : Social History Observation Description Sex Assigned At Male Household Question Answer Notes Marital status: Tobacco Control (Standard) Question Answer Notes Tobacco use: Nonsmoker Vital Signs Blood pressure systolic 133 mm Hg 12/16/19 25 Blood pressure diastolic 84 mm Hg 025 Heart Rate 60 /min 12/15/2024 Height 70.00 in 12/15/2024 Weight 248 lbs 12/15/2024 BMI 35.58 kg/m2 12/15/2024 Height-cm 177.80 cm 12/15/2024 Weight-kg 112.49 kg 12/15/2024 Encounters Encounter Location Date Provider Diagnosis [facility] [employer] [place] [address] [facility] [address] [place] [address] 12/15/2024 Torrie Peace Major depressive disorder, recurrent severe without psychotic features F33.2 ; Generalized anxiety disorder F41.1 ; Alcohol dependence, in remission F10.21 and Mild neurocognitive disorder G31.84 Assessments Encounter Date Diagnosis (ICD Code) Assessment Notes Treatment Notes Treatment Clinical Notes Section Notes 12/15/2024 Major depressive disorder, recurrent severe without psychotic [...] common with first generation antipsychotics) and more. Electronic Prior Authorization was requested for Rexulti 1 MG Tablet. Provider can order medication once approval received. 12/15/2024 Generalized anxiety disorder (ICD-10 - F41.1) 12/15/2024 Alcohol dependence, in remission (ICD-10 - F10.21) 12/15/2024 Mild neurocognitive disorder (ICD-10 - G31.84) Memantine 10mg BID per PCP 12/15/2024 Other Continue off of Wellbutrin. Start Rexulti 0.5mg daily for 4 days, then 1mg daily for depression, anxiety ---if no effect, consider tapering off of fluoxetine and consider duloxetine. Patient educated on all medications including potential benefits, side effects, risks. Educated on proper dosing schedule and importance of compliance. Referred to counseling -Assessment and treatment plan reviewed with patient. -Compliance with treatment plan importance discussed. -Discussed the risks/benefits of this medication -Discussed medication side effects. -Contact office if symptoms worsen. -Discussed that it can take up to 6-8 weeks to see full therapeutic effects of psychotropic medications. -Crisis prevention hotline 988. Plan Of Treatment Medication Medication Name Sig Start Date Stop Date Notes traZODone HCl 50 MG 1 tablet at bedtime Oral Once a day for 90 days Rexulti 1 MG 1 tablet Orally Once a day for 30 day(s) 12/15/2024 buPROPion HCl ER (XL) 300 MG 1 tablet in the morning Orally Once a day for 90 days FLUoxetine HCl 20 MG 2 capsule Oral Once a day for 90 [...] common with first generation antipsychotics) and more. Electronic Prior Authorization was requested for Rexulti 1 MG Tablet. Provider can order medication once approval received. Mild neurocognitive disorder Memantine 1 0mg BID per PCP Other Continue off of Wellbutrin. Start Rexulti 0.5mg daily for 4 days, then 1mg daily for depression, anxiety ---if no effect, consider tapering off of fluoxetine and consider duloxetine. Patient educated on all medications including potential benefits, side effects, risks. Educated on proper dosing schedule and importance of compliance. Referred to counseling Next Appt Details Follow Up: 2 Weeks, Reason: med f/u Provider Name:Torrie Peace, 01/05/2025 08:15:00 AM, [address], [facility] [address], [place], [address], Provider Name:Ernie mendoza, 02/07/2025 09:00:00 AM, [address], [address], [place], [address], Progress Notes * GONZALEZRILEY CDOB:[birth year] (69 yo M)Acc No.[id number]:12/15/2024 Patient: RILEY CONNELL Provider: Davide PEACE PMHNP :1955 A ge:69 Y S ex:Male Date:12/15/2024 Phone: Address:[address] [place] [address] [id number] Pcp:Robb Sepulveda MD Subjective: * Chief Complaints: * P t requested appointmentDepression screening positiveFunctional status reviewed * HPI: D epression screening: PHQ-9 L ittle interest or pleasure in doing things?Nearly every day F eeling down, depressed, or hopeless N early every day T rouble falling or staying asleep, or sleeping too much M ore than half the days F eeling tired or having little energy S everal days P oor appetite or overeating N early every day F eeling bad about yourself or that you are a failure, or have let yourself or your family down M ore than half the days T rouble concentrating on things, such as reading the newspaper or watching television N early every day M oving or speaking so slowly that other people could have noticed; or the opposite, being so fidgety or restless that you have been moving around a lot more than usual M ore than half the days T houghts that you would be better off or of hurting yourself in some way N ot at all T otal Score 1 9 I nterpretation M oderately Severe Depression Intervention D epression Screening Findings P ositve F ollow-Up for Depression M ental health treatment assessment, Patient follow-up to return when and if necessary S uicide Risk Assessment Performed 0 12/15/2024 A dditional Evaluation for Depression P sychiatric interview and evaluation N rebecca of the standardized tool used for adult depression screening: P atient Health Questionnaire (PHQ-9) D epression Screening: DEMARIO-7 (2018 Edition) F eeling nervous, anxious, or on edge N early every day N ot being able to stop or control worrying?Nearly every day W orrying too much about different things M ore than hafl the days T rouble relaxing S everal days B eing so restless that it is hard to sit still N ot at all B ecoming easily annoyed or irritable S everal days F eeling afraid as if something awful might happen N early every day T otal DEMARIO-7 Score 1 3 I nterpretation of Total ( 10 to 14) Moderate H istory of Presenting Problem: Anxiety w ith excessive worry, with restlessness . ? Depression R ates depression 2/10 with 10 being most severe. . Mood lability n o hx francisco. Psychosis n o hx psychosis. Sleep disturbance w ith a history of sleep apnea-CPAP. Suicidal ideation d enies. Memory S LUMS=26 1 . Here for follow up. He has stopped the Wellbutrin, it was making me sick . Has been off of the Wellbutrin for about a week, was causing increased anxiety. Continues to endorse depression, loss of interest in hobbies, poor motivation; I only do what needs to be done . states he looks for a hole to hide in . Denies suicidal thoughts, although states I have to take care of my . Has a knee replacement on the first of January. Sleep is good, getting about 7-8 hours nightly. Energy is low. Appetite is poor, eating about one meal daily. P ast Psychiatric Hospitalizations: previous admissions/IOP/PHP: none history of SI/SA: denies family psychiatric history: parents-depression previously trialled medications: Prozac, Vraylar (not covered), abilify (oral movements), Wellbutrin (increased anxiety). history of neglect/abuse/trauma: denies substance use history: history of alcohol dependence-was drinking 8 beers daily or a pint of whiskey-quit heavy drinking in 2012. * ROS: P sychiatric: Patient denies s uicidal thoughts, francisco, psychosis, depressed mood, anxiety, irritability, auditory / visual hallucinations. P atient complains of d epressed mood, irritability. C annette Magaña [facility] for details. P erformance Met: N ormal blood pressure reading documented, follow-up not required ( G8783). * Medical History: * Surgical History: * Hospitalization/Major Diagno stic Procedure: * Family History: U nspecified Relation: Alcohol abuse . M aternal Uncle: Diabetes mellitus . F ather: Epilepsy . P aternal Uncle: History of attempted suicide , Depressive disorder . B rother: Schizophrenia , Bipolar disorder , Depressive disorder , Anxiety disorder . * Social History: T obacco Use: T obacco Control (Standard) T obacco use: N onsmoker M igrated Social History: M igrated Social History: Alcohol Intake: None 04/24/2023,Tobacco Years: Former smoker 03/14/2023. H ousehold: H ousehold M arital status: m arried * Medications: T akingMemantine HCl 10 MG Tablet Oral FLUoxetine HCl 20 MG Capsule 1 capsule Oral Once a day traZODone HCl 50 MG Tablet 1 tablet at bedtime Oral Once a day Taking Memantine HCl 10 MG Tablet Oral Taking FLUoxetine HCl 20 MG Capsule 1 capsule Oral Once a day Taking traZODone HCl 50 MG Tablet 1 tablet at bedtime Oral Once a day Not-TakingbuPROPion HCl ER (XL) 300 MG Tablet Extended Release 24 Hour 1 tablet in the morning Orally Once a day Not-Taking buPROPion HCl ER (XL) 300 MG Tablet Extended Release 24 Hour 1 tablet in the morning Orally Once a day UnknownAtorvastatin Calcium 80 MG [...] reviewed and reconciled with the patient * Allergies: N .K.D.A.no[Allergies Verified] Objective: * Vitals: B P:133/84mm Hg, HR:60/min, Wt:248lbs, Wt-k.49 kg, Ht: 70.00 in, Ht-cm: 177.80 cm, BMI:35.58Index, Body Surface Area: 2.35. * Examination: P sychiatry: Dementia S afety concern screening for dangerousness to self and environment risks provided: Y es Appearance: w ell-groomed. Abnormal body movements: n one. Affect / mood: d epressed. Attention: g ood. Attitude: c ooperative. Homicidal ideation: n one. Suicidal ideation: n one. Degree of awareness of surroundings: w ithin normal limits.? Delusions: n o. Hallucinations: n o. Insight: g ood. Judgement: g ood. Orientation: a wake, alert and oriented x 3. Perceptual disorders: n o perceptual disorder noted. Psychomotor activity: w ithin normal range. Speech / language: n ormal rate, volume, and articulation (RVR), clear and coherent. Thought content: a ppropriate. Thought process: i ntact. F unctional Assessment: Venegas Index of ADL S core: 6 1 point for independence, 0 for help Physical Functioning P ersonal hygiene: including combing hair, brushing teeth, shaving, applying makeup, washing/drying face and hands (exclude baths and showers)?Independent B athing: how client takes full-body bath/shower or sponge bath (exclude washing of back and hair). Includes how each part of body is bathed: arms, upper and lower legs, chest, abdomen, perineal area. (code for most dependent episode in last 7 days) I ndependent D ressing upper body: how client dresses and undresses (street clothes, underwear) above the waist, includes prostheses, orthotics, fasteners, pullovers, etc. I ndependent E ating - Including taking in food by any method, including tube feedings I ndependent T oilet use: including using the toilet room or commode, bedpan, urinal, transferring on/off toilet, cleaning self after toilet use or incontinent episode, changing pad, managing any special devices required (ostomy or catheter), and adjusting clothes. I ndependent T ransfer: including moving to and between surfaces--to/from bed, chair, wheelchair, standing position (excludes to/from bath/toilet) I ndependent C ontinence: I ndependent (1) 1 point for independence, 0 for help. N eurological: Dementia C aregiver education and support provided Y es Assessment: * Assessment: 1. M ajor depressive disorder, recurrent severe without psychotic features - F33.2 (Primary)? 2. G eneralized anxiety disorder - F41.1 3 . A lcohol dependence, in remission - F10.21 4 . M ild neurocognitive disorder - G31.84 Plan: * Treatment: 2. M ild neurocognitive disorder Notes: Memantine 10mg BID per PCP 3. O thers Notes: Continue off of Wellbutrin. Start Rexulti 0.5mg daily for 4 days, then 1mg daily for depression, anxiety ---if no effect, consider tapering off of fluoxetine and consider duloxetine. Patient educated on all medications including potential benefits, side effects, risks. Educated on proper dosing schedule and importance of compliance. Referred to counseling Clinical Notes: -Assessment and treatment plan reviewed with patient. -Compliance with treatment plan importance discussed. -Discussed the risks/benefits of this medication -Discussed medication side effects. -Contact office if symptoms worsen. -Discussed that it can take up to 6-8 weeks to see full therapeutic effects of psychotropic medications. -Crisis prevention hotline 988. * Procedure Codes: G 8783 NORMAL BP READING DOC F/U NOT [id number] BEHAV ASSMT W/SCORE & DOCD/STAND [id number] Funct status past 12 [id number] ASSESSMENT OF AND CARE PLANNING FOR A PATIENT WITH COGNITIVE [id number] CLIN DEPRESSION SCREEN [id number] MOST RECENT SYSTOLIC BP < 140MM [id number] MOST RECENT DIASTOLIC BP < 90MM [id number] VISIT COMPLEXITY INHERENT TO ONGOING CARE RELATED TO A PATIENT'S SINGLE, SERIOUS CONDITION OR A COMPLEX CONDITION * Follow Up: 2 Weeks (Reason: med f/u) * Billing Information: * Visit Code: 89515 OFFICE OUTPATIENT VISIT 25 MINUTES DETAILED HISTORY AND EXAM/MODERATE MEDICAL DECISION MAKING. * Procedure Codes: G8783 NORMAL BP READING DOC F/U NOT RQR. 80435 BEHAV ASSMT W/SCORE & DOCD/STAND INSTRUMENT. G9916 Funct status past 12 months. 28686 ASSESSMENT OF AND CARE PLANNING FOR A PATIENT WITH COGNITIVE IMPAIRMENT. G8431 CLIN DEPRESSION SCREEN DOC. G8752 MOST RECENT SYSTOLIC BP < 140MM HG. G8754 MOST RECENT DIASTOLIC BP < 90MM HG. G2211 VISIT COMPLEXITY INHERENT TO ONGOING CARE RELATED TO A PATIENT'S SINGLE, SERIOUS CONDITION OR A COMPLEX CONDITION. * UTIVE RECEPTIONIST Sign off status: Completed true * Provider: ELDER HICKEY Date: 12/15/2024 Generated for Saranya estrada/Ruthie/Sofya on: 0 12/28/2024 11:06 AM CDT History and Physical Notes * HPI (History of Present Illness) Category Sub-Category Detail Notes Category Not es History of Presenting Problem Anxiety with excessive worry, with restlessness Here for follow up. He has stopped the Wellbutrin, it was making me sick . Has been off of the Wellbutrin for about a week, was causing increased anxiety. Continues to endorse depression, loss of interest in hobbies, poor motivation; I only do what needs to be done . states he looks for a hole to hide in . Denies suicidal thoughts, although states I have to take care of my . Has a knee replacement on the first of January. Sleep is good, getting about 7-8 hours nightly. Energy is low. Appetite is poor, eating about one meal daily. Depression Rates depression 2/1 0 with 10 being most severe. Suicidal ideation denies Sleep disturbance with a history of sl eep apnea-CPAP Psychosis no hx psychosis Mood lability no hx francisco Memory SLUMS=26 08/10/2024 Past Psychiatric Hospitalizations previous admissions/IOP/PHP: none history of SI/SA: denies family psychiatric history: parents-depression previously trialled medications: Prozac, Vraylar (not covered), abilify (oral movements), Wellbutrin (increased anxiety). history of neglect/abuse/trauma: denies substance use history: history of alcohol dependence-was drinking 8 beers daily or a pint of whiskey-quit heavy drinking in 2012 Depression screening PHQ-9 Little inte rest or pleasure in doing things: Nearly every day Feeling down, depressed, or hopeless: Ne juliane every day Trouble falling or staying a sleep, or sleeping too much: More than half the days Feeling tired or having little energy: S everal days Poor appetite or overeating: Nearly ever y day Feeling bad about yourself o r that you are a failure, or have let yourself or your family down: More than half the days Trouble concentrating on thi ngs, such as [...] some way: Not at all Total Score: 19 Interpretation: Moderately Severe Depres adrian Intervention Depression Screening Findings: P ositve Follow-Up for Depression: [facility] treatment assessment, Patient follow-up to return when and if necessary Suicide Risk Assessment Performed: 12/15 Additional Evaluation for Depression: Ps ychiatric interview and evaluation Name of the standardized too l used for adult depression screening:: Patient Health Questionnaire (PHQ-9) Depression Screening DEMARIO-7 (2018 Edition) Feelin g nervous, anxious, or on edge: Nearly every day Not being able to stop or control worryi ng: Nearly every day Worrying too much about different things : More than hafl the days Trouble relaxing: Several days Being so restless that it is hard to sit still: Not at all Becoming easily annoyed or irritable: Se veral days Feeling afraid as if something awful chey ht happen: Nearly every day Total DEMARIO-7 Score: 13 Interpretation of Total: (10 to 14) Mode rate Examination Category Sub-Category Detail Notes Category Not es Psychiatry Appearance: well-groomed Attitude: cooperative Psychomotor activity: within normal rang e Abnormal body movements: none Attention: good Degree of awareness of surroundings: wit hin normal limits Orientation: awake, alert and yue ented x 3 Affect / mood: depressed Speech / language: normal rate, volume, and articulation (RVR), clear and coherent Insight: good Judgement: good Thought process: intact Thought content: appropriate Perceptual disorders: no perceptual diso rder noted Suicidal ideation: none Homicidal ideation: none Delusions: no Hallucinations: no Dementia Safety concern scree stephen for dangerousness to self and environment risks provided:: Yes Neurological Dementia Caregiver education and support provided: Yes Functional Assessment Venegas Index of ADL [...]
--- OUTSIDE RECORDS SUMMARY | 2024-12-28 11:06 | XMS_ITS | CONTINUITY OF CARE DOCUMENT ---
Author Name onofre, onofre Address Unknown Organization [facility] Address [address] [place] [address] Phone [phone] Care Team Providers Care International Affairs Vice President Name Role Phone Guy PETERSON, Ralph Unavailable [phone] BALWINDER PETERSON, ALFRED Unavailable [phone] GAY PETERSON, LAURA Unavailable [phone] PROBLEMS Condition Status Date Provider Notes CHEST PAIN,-07/20 NUC EF 58 completed - Doug A hmedzai PALPITATIONS BIGEMINY, TRIGEMINY completed - Doug Ahmedzai Hypertension active Doug Ahmedzai Prediabetes active Doug Ahmedzai Dyspnea on exertion--echo ef nl, 04/2024, stress nuc nl, 10/2024 active Doug Ahmedzai CVA active Doug Ahmedzai Sleep apnea, on cpap active Doug Ahmedzai Carotid arterial disease, 50 -69% RAZ 04/2024 active Doug Ahmedzai ENCOUNTERS Date Type Provider Location Encounter Diag nosis - In-person encounter Office Visit Ralph Tovar MD [facility] Dyspnea on exertion--echo ef nl, 04/2024 , stress nuc nl, 10/2024Sleep apnea, on cpap - In-person encounter Office Visit Ralph Tovar MD [facility] Dyspnea on exertion--echo ef nl, 04/2024 , stress nuc nl, 10/2024Sleep apnea, on cpapCarotid arterial disease, 50-69% RAZ 04/2024 - In-person encounter Office Visit Ralph Tovar MD [facility] CHEST PAIN,-07/20 NUC EF 58PALPITATIONS BIGEMINY, TRIGEMINYHypertensionPrediabetesDyspnea on exertion--echo ef nl, 04/2024, stress nuc nl, VASleep apnea, on cpapCarotid arterial disease, 50-69% RAZ 04/2024 - In-person encounter Office Visit Ralph oTvar MD [facility] CHEST PAIN,-07/20 NUC EF 58 VITAL SIGNS Date Observation Value Provider Body Mass Index (Ratio) 35.28 kg/m2 Zach Tovar MD blood pressure, diastolic 82 mm[Hg] Radha estrellita Miners blood pressure, systolic 134 mm[Hg] Marizatutu Miners pulse rate 71 /min Dona ortez oxygen saturation, oximetry 95 % Dona Miners blood pressure, cuff size regular estrellita Miners weight E&M 253 [lb_av] Dona Miner s height E&M 71 [in_i] Dona Miner s Body Mass Index (Ratio) 32.91 kg/m2 Zach Tovar MD blood pressure, cuff size regular Ayaz Moreira blood pressure, diastolic 78 mm[Hg] Ta bitha Moreira blood pressure, systolic 128 mm[Hg] Tab itha Moreira oxygen saturation, oximetry 96 % Elsi Moreira pulse rate 59 /min Elsi Moreira weight E&M 236 [lb_av] Elsi Moreira respiratory rate E&M 12 /min Elsi Moreira height E&M 71 [in_i] Elsi Moreira Body Mass Index (Ratio) 32.35 kg/m2 Zach Tovar MD blood pressure, diastolic -1 mm[Hg] Li nkLogic blood pressure, systolic 131 mm[Hg] Latoya kLogic blood pressure, diastolic 79 mm[Hg] Bharathi rret blood pressure, systolic 131 mm[Hg] Jar ret pulse rate 66 /min [facility] blood pressure, cuff size regular Ja rr oxygen saturation, oximetry 97 % [facility] respiratory rate E&M 16 /min [facility] weight E&M 232 [lb_av] [facility] y height E&M 71 [in_i] Hill y Body Mass Index (Ratio) 25.20 kg/m2 Zach Tovar MD height E&M 71 [in_i] Ralph Tovar MD blood pressure, diastolic 88 mm[Hg] Bharathi Bhat RN blood pressure, systolic 155 mm[Hg] Hunter Bhat RN pulse rate 67 /min Hunter Bhat RN oxygen saturation, oximetry 99 % Hunter Bhat RN respiratory rate E&M 18 /min Hunter gonzalez RN weight E&M 245 [lb_av] Ralph Tovar [...] 0-149 3 cholesterol, serum 126 mg/dL [facility] [phone]/07/1 3 alanine aminotransferase (SGPT), serum 52 1/L [...] 3.5-5.2 3 sodium, serum 142 mmol/L [employer] [phone]/07/1 3 urea nitrogen/creatinine ratio, serum 15 [employer] [...] Estab. 3 platelet count 296 X10E3/UL [employer] [phone]/07/1 3 red blood cell distribution width 12.6 [...] Status Instructions Dates Provider Indications Com ments bupropion HCl 300 mg tablet extended release 24 hr active Doug Gigianthonygay trazodone 50 mg tablet active Doug Ahanthonygay memantine 10 mg tablet active Doug Ankitatutu tamsulosin 0.4 mg capsule active Doug Ankita metoprolol tartrate 25 mg tablet active twice a day Doug Gigianthonygaytutu gabapentin 300 mg capsule active Doug Ahanthonygaytutu donepezil 5 mg tablet active Dougrio Lucianotutu atorvastatin 80 mg tablet active Dougrio Lucianotutu metformin 500 mg tablet active twice a day Doug Gigianthonygaytutu fluoxetine 20 mg capsule active once a day Doug Yuanthonygaytutu losartan 50 mg tablet active Doug ritatutu cyclobenzaprine 5 mg tablet active Doug Ankita metoprolol tartrate 25 mg tablet completed 0.5 tablet twice a day - Doug Lucianotutu succinate changed to tartrate do to unavailability MULTIVITAMINS ORAL CAPSULE completed 1 tablet once a day - Doug Gigikinga VITAMIN B12 TABLET completed 1 tablet once a day - Doug Gigikinga CALCIUM CARBONATE TABLET completed 1 tablet once a day - Doug Gigikinga ASPIRIN 81 MG ORAL TABLET completed 1 tablet once a day - Doug Ankitatutu SOCIAL HISTORY Date Observation Value Provider smoking status Non-smoker Doug Cui smoking status Non-smoker Doug Cui smoking status [...] exercise, f requency, days per week no [employer] caffeine use, averag e drinks per day yes [employer] alcohol use, average drinks per day social basis only [employer] number of years as a smoker 10 years or m ore [employer] smoking status Non-smoker [employer] MENTAL STATUS Date Observation Value Provider assessment of judgme nt and insight E&M Alert and oriented to time, place and person. Mood and affect are normal. Hunter Bhat RN INSURANCE PROVIDERS Payer name Policy type / Coverage type [employer] party ID [employer] PPO O [id number] ADVANCE DIRECTIVES Name Date DISCUSSED - NO DECISION MADE TREATMENT PLAN Date Name Performer Cardiology:This visi t has been a part of the consistent, comprehensive, and ongoing management of the chronic medical condition(s) listed above for the patient. BP today: 134/82 P rior BP: 128/78 (05/31/2024) Labs Reviewed: C reat: 1.06 (04/24/2024) C hol: 126 (04/24/2024) HDL: 46 (04/24/2024) LDL: 63 (04/24/2024) T (04/24/2024) His updated medication list for this problem includes: Metoprolol Tartrate 25 Mg Tablet (Metoprolol tartrate) ..... Twice a day Losartan 50 Mg Tablet (Losartan) Ralph Tovar MD Cardiology Ralph Tovar MD Cardiology Ralph Tovar MD Cardiology Ralph Tovar MD Cardiology Ralph Tovar MD Cardiology Doug Cui Cardiology Doug Cui Cardiology:This [...] (Metoprolol tartrate) Losartan 50 Mg Tablet (Losartan) [facility] Card[facility] Card[facility] Cardiology: B P today: 131/79 P rior BP: 155/88 (08/02/2008) His updated medication list for this problem includes: Metoprolol Tartrate 25 Mg Tablet (Metoprolol tartrate) Losartan 50 Mg Tablet (Losartan) Orders: C omplete Echo (66621) C OMPREHENSIVE METABOLIC PANEL, W/EGFR (97267) C BC (INCLUDES DIFF/PLT) (6399) H EMOGLOBIN A1c (496) L IPID PANEL (7600) T SH, free T4, total T3 (7444) P ROBNP, N TERMINAL (49476) C RP, high sensitivity (87975) [facility] Cardiology: O rders: C omplete Echo (20541) C OMPREHENSIVE METABOLIC PANEL, W/EGFR (18174) C BC (INCLUDES DIFF/PLT) (6399) H EMOGLOBIN A1c (496) L IPID PANEL (7600) T SH, free T4, total T3 (7444) P ROBNP, N TERMINAL (07646) C RP, high sensitivity (37927) [facility] Cardiology: O rders: C omplete Echo (25979) C arotid Duplex Bilateral (CPT-10431) C OMPREHENSIVE METABOLIC PANEL, W/EGFR (68685) C BC (INCLUDES DIFF/PLT) (6399) H EMOGLOBIN A1c (496) L IPID PANEL (7600) T SH, free T4, total T3 (7444) P ROBNP, N TERMINAL (87320) C RP, high sensitivity (08696) Doug Cui Cardiology: O rders: C omplete Echo (34950) C OMPREHENSIVE METABOLIC PANEL, W/EGFR (20318) C BC (INCLUDES DIFF/PLT) (6399) H EMOGLOBIN A1c (496) L IPID PANEL (7600) T SH, free T4, total T3 (7444) P ROBNP, N TERMINAL (91805) C RP, high sensitivity (60583) Doug Luciano Cardiology: O rders: S leep Study Home (CPT-41794) Doug Luciano Cardiology Dougrio Luciano office visit: H is updated medication list [...] Procedure Name Provider Procedure Notes S tatus Complex e/m visit add on Ralph Tovar MD completed EKG Ralph Tovar MD completed
--- OUTSIDE RECORDS SUMMARY | 2024-12-28 11:07 | XMS_ITS | Patient Health Record ---
Author Organization [facility] [employer] Address [address] [place] [address] Care Team Providers Care Engagement Director Name Role Phone Robb Sepulveda MD Primary Care Provider UnavailTorrie Williamson Unavailable [phone] Migration, Provider Unavailable Unavailable Allergies No Known Allergies Reason For Referral No Information Medications Medication SIG (Take, Route, Frequency, Duration) Notes Start Date End Date Status Memantine HCl 10 MG Oral 04/24/2023 Active traZODone HCl 50 MG 1 tablet at bedtime Oral Once a day for 90 days Active Rexulti 1 MG 1 tablet Orally Once a day for 30 day(s) 12/15/2024 Active Tamsulosin HCl 0.4 MG Oral 04/24/2023 Unknown Losartan Potassium 50 MG Oral 04/24/2023 Unknown FLUoxetine HCl 20 MG 2 capsule Oral Once a day for 90 days Active Metoprolol Tartrate 25 MG Oral 04/24/2023 Unknown tiZANidine HCl 2 MG Oral 04/24/2023 Unknown Atorvastatin Calcium 80 MG Oral 04/24/2023 Unknown Immunizations Vaccine Route Administration Date Status Comme nts COVID-19 (SARS-COV-2) vaccin e, unspecified Unknown 09/05/2021 Administered COVID-19 (SARS-COV-2) vaccin e, unspecified Unknown 05/11/2022 Administered COVID-19 (SARS-COV-2) vaccin e, unspecified Unknown 07/30/2022 Administered Social History Tobacco Use: Social History Observation Description Date Details (start date - stop date) Never Smoker NA - NA Sex Assigned At : Social History Observation Description Sex Assigned At Male Household Question Answer Notes Marital status: Tobacco Control (Standard) Question Answer Notes Tobacco use: Nonsmoker Problems Problem Type SNOMED Code ICD Code Onset Dates Problem Status W/U Status Risk Notes Problem Chronic alcoholism in remission (940691818) Alcohol dependence, in remission (F10.21) Active confirmed Problem Severe recurrent major depression without psychotic features (95474398) Major depressive disorder, recurrent severe without psychotic features (F33.2) Active confirmed Problem Generalized anxiety disorder (93840761) Generalized anxiety disorder (F41.1) Active confirmed Problem Mild neurocognitive disorder (702155772) Mild neurocognitive disorder (G31.84) Active confirmed Vital Signs Heart Rate 60 /min 12/15/2024 Height-cm 177.80 cm 12/15/2024 Blood pressure diastolic 84 mm Hg 12/15/2024 Weight-kg 112.49 kg 12/15/2024 Height 70.00 in 12/15/2024 Blood pressure systolic 133 mm Hg 12/15/2024 Weight 248 lbs 12/15/2024 BMI 35.58 kg/m2 12/15/2024 Encounters Encounter Location Date Provider Diagnosis [facility] [address] [facility] [address] [place] [address] 05/11/2024 Torrie Nata Major depressive disorder, recurrent severe without psychotic features F33.2 ; Generalized anxiety disorder F41.1 and Alcohol dependence, in remission F10.21 [facility] [address] [address] 06/11/2024 Torrie Nata Major depressive disorder, recurrent severe without psychotic features F33.2 ; Generalized anxiety disorder F41.1 and Alcohol dependence, in remission F10.21 [facility] [address] [address] 07/09/2024 Torrie Nata Major depressive disorder, recurrent severe without psychotic features F33.2 ; Generalized anxiety disorder F41.1 and Alcohol dependence, in remission F10.21 [employer] [facility] [address] [place] [address] 08/06/2024 Torrie Nata [facility] [address] [place] [address] 08/10/2024 Torrie Nata Major depressive disorder, recurrent severe without psychotic features F33.2 ; Generalized anxiety disorder F41.1 ; Alcohol dependence, in remission F10.21 and Mild neurocognitive disorder G31.84 [facility], [facility] [address] [place] [address] 09/24/2024 Torrie Nata Major depressive disorder, recurrent severe without psychotic features F33.2 ; Generalized anxiety disorder F41.1 ; Alcohol dependence, in remission F10.21 and Mild neurocognitive disorder G31.84 [facility], [facility] [address] [place] [address] 11/05/2024 Torrie Nata Major depressive disorder, recurrent severe without psychotic features F33.2 ; Generalized anxiety disorder F41.1 ; Alcohol dependence, in remission F10.21 and Mild neurocognitive disorder G31.84 [facility], [facility] [address] [place] [address] 12/15/2024 Torrie Nata Major depressive disorder, recurrent severe without psychotic features F33.2 ; Generalized anxiety disorder F41.1 ; Alcohol dependence, in remission F10.21 and Mild neurocognitive disorder G31.84 [facility], [facility] [address] [place] [address] 11/05/2024 Torrie Nata [facility], [facility] [address] [place] [address] 02/28/2024 Provider Migration [facility], [facility] [address] [place] [address] 02/29/2024 Provider Migration [facility], [facility] [address] [place] [address] 05/24/2024 Torrie Nata Major depressive disorder, recurrent severe without psychotic features F33.2 [facility], [facility] [address] [place] [address] 05/10/2024 Torrie Peace [facility], [facility] [address] [place] [address] 05/18/2024 Torrie Nata Major depressive disorder, recurrent severe without psychotic features F33.2 [facility], [facility] [address] [place] [address] 09/24/2024 Torrie Peace [facility], [facility] [address] [place] [address] 12/07/2024 Torrie Nata [facility], [facility] [address] [place] [address] 12/13/2024 Torrie Peace [facility], [facility] [address] [place] [address] 12/13/2024 Torrie Peace [facility], [facility] [address] [place] [address] 12/15/2024 Torrie Peace [facility], [facility] [address] [place] [address] 12/15/2024 Torrie Peace Assessments Encounter Date Diagnosis (ICD Code) Assessment Notes Treatment Notes Treatment Clinical Notes Section Notes 05/11/2024 Major depressive disorder, recurrent severe without psychotic features (ICD-10 - F33.2) FLUOXETINE 80MG DAILY PER PCP 05/11/2024 Generalized anxiety disorder (ICD-10 - F41.1) 05/18/2024 Major depressive disorder, recurrent severe without psychotic features (ICD-10 - F33.2) 08/10/2024 Major depressive disorder, recurrent severe without [...] with first generation antipsychotics) and more. 09/24/2024 Major depressive disorder, recurrent severe without [...] common with first generation antipsychotics) and more. 11/05/2024 Major depressive disorder, recurrent severe without psychotic [...] common with first generation antipsychotics) and more. 12/15/2024 Major depressive disorder, recurrent severe without [...] Provider can order medication once approval received. 07/09/2024 Major depressive disorder, recurrent severe without [...] common with first generation antipsychotics) and more. 06/11/2024 Major depressive disorder, recurrent severe without psychotic features (ICD-10 - F33.2) 06/11/2024 Generalized anxiety disorder (ICD-10 - F41.1) 07/09/2024 Generalized anxiety disorder (ICD-10 - F41.1) 12/15/2024 Generalized anxiety disorder (ICD-10 - F41.1) 11/05/2024 Generalized anxiety disorder (ICD-10 - F41.1) 09/24/2024 Generalized anxiety disorder (ICD-10 - F41.1) 05/11/2024 Alcohol dependence, in remission (ICD-10 - F10.21) 08/10/2024 Generalized anxiety disorder (ICD-10 - F41.1) 05/24/2024 Major depressive disorder, recurrent severe without psychotic features (ICD-10 - F33.2) Electronic Prior Authorization was requested for ARIPiprazole 2 MG Tablet. Provider can order medication once approval received. 08/10/2024 Alcohol dependence, in remission (ICD-10 - F10.21) 08/10/2024 Mild neurocognitive disorder (ICD-10 - G31.84) Memantine 10mg BID per PCP 09/24/2024 Alcohol dependence, in remission (ICD-10 - F10.21) 11/05/2024 Alcohol dependence, in remission (ICD-10 - F10.21) 06/11/2024 Alcohol dependence, in remission (ICD-10 - F10.21) 12/15/2024 Alcohol dependence, in remission (ICD-10 - F10.21) 07/09/2024 Alcohol dependence, in remission (ICD-10 - F10.21) 09/24/2024 Mild neurocognitive disorder (ICD-10 - G31.84) Memantine 10mg BID per PCP 11/05/2024 Mild neurocognitive disorder (ICD-10 - G31.84) Memantine 10mg BID per PCP 12/15/2024 Mild neurocognitive disorder (ICD-10 - G31.84) [...] therapeutic effects of psychotropic medications. -[facility] 11/05/2024 Other Stop abilify due to EPS Start trazodone 50mg qHS for sleep PRN. Patient educated on all medications including potential [...] of psychotropic medications. -Crisis prevention hotline 988. 12/15/2024 Other Continue off of Wellbutrin. Start [...] effects of psychotropic medications. -Crisis prevention hotline 448. Plan Of Treatment Next Appt Details Provider Name:Torrie Peace, 01/05/2025 08:15:00 AM, [address], [place] [address], [place], [address], Provider Name:Ernie mendoza, 02/07/2025 09:00:00 AM, [address], [facility] [address], [place], [address], Insurance Providers Payer Name Payer Address Payer Phone Subscriber Number Group Number Insured Name Patient Relationship to Insured Coverage Start Date Coverage End Date [employer] Medicare Replacemen t/Advantag e - Ppo [address] [address] [place] [address] [id number] RILEY GONZALEZ Self - patient is the insured Medical (General) History Medical History History ICD Code Problems: Chronic alcoholism in remissio n Generalized anxiety disorder Moderately severe recurrent major depres adrian Severe recurrent major depression withou t psychotic features ,
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
[2024-12-28 12:12] LABS: Add Urine Microscopic? NO; Appearance Urine Clear (Clear); Bilirubin Urine Negative (Negative); Blood Urine Negative (Negative); Color Urine Yellow (Yellow); Glucose Urine UA Negative (Negative); Ketones Urine Negative (Negative); Leukocyte Esterase Ur Negative LEU/UL (Negative); Nitrate Urine Negative (Negative); Protein Urine Negative (Negative); Specific Grav Ur 1.016 (1.001-1.035); Urobilinogen Urine 0.2 mg/dL (<2.0); pH Urine 5.5 (5.0-9.0)
[2024-12-28 12:25] LABS: Albumin Level 4.2 g/dL (3.5-5.1); Anion Gap 10 mmol/L (4-12); Blood Urea Nitrogen 12 mg/dL (9-20); Calcium 9.7 mg/dL (8.4-10.2); Carbon Dioxide 27 mmol/L (22-30); Chloride 106 mmol/L (98-107); Estimated Glomerular Filt Rate > 60; Glucose 115 mg/dL (65-110); Potassium 4.6 mmol/L (3.4-5.0); Sodium 143 mmol/L (137-145)
[2024-12-28 12:26] LABS: Partial Thromboplastin Time 25.6 Seconds (22.3-36.8); Prothrombin Time 12.9 Seconds (11.1-14.7)
[2024-12-28 12:43] LABS: Basophils Percent Auto 0.4 % (0.2-1.2); Eosinophils Absolute Auto 0.6 K/mm3 (0-0.3); Hematocrit 44.5 % (42.0-52.0); Hemoglobin 14.2 g/dL (14.0-18.0); Immature Granulocyte Absolute 0.04 K/mm3 (0.00-0.031); Immature Granulocyte Percent A 0.4 % (0-0.5); Lymphocytes Absolute Auto 3.12 K/mm3 (0.9-3.2); Mean Corpuscular HGB Conc 31.9 g/dl (32-36); Mean Corpuscular Hemoglobin 30.6 pg (26-34); Mean Corpuscular Volume 95.9 fl (80-100); Monocytes Absolute Auto 0.7 K/mm3 (0.1-0.6); Monocytes Percent Auto 7.2 % (2.6-8.5); Neutrophils Absolute Auto 5.3 K/mm3 (1.3-6.7); Platelet Count Result 253 k/mm3 (150-375); Red Blood Count 4.64 M/mm3 (4.6-6.20); White Blood Count 9.7 K/mm3 (4.5-10.0)
[2024-12-28 13:08] LABS: Urine Cotinine NEGATIVE
[2024-12-28 13:28] LABS: MRSA (PCR) NOT DETECTED (NOT DETECTE)
== END 2024-12-28 09:53 | disposition home or self-care (01) ==
LOC: ANHSURGERY 09:58
PROVIDERS: PCP Family Medicine; Visit Provider Orthopaedic Surgery
DX: M17.11 Unilateral primary osteoarthritis, right knee (principal); Z01.818 Encounter for other preprocedural examination
CPT/HCPCS: 80048; 80307; 81003; 82040; 85025; 85610; 85730; 87641

== ENCOUNTER 2025-01-11 02:44 | Day surgery (SDC) | payer MEDICARE, SELFPAY ==
[2024-12-28 10:25] VITALS: BP 136/68; PULSE 60; RESP 16; TEMP 36.7; O2SAT 98; BMI 37.8
--- NOTE | 2024-12-28 10:50 | PC.NURSE ---
Report to the Outpatient Waiting Room, entrance under the green pavilion located off [facility], at time ___8:30AM____ on date ___01/11/25____. Planned Procedure Time: __10:30AM .? Time changes happen often and if your time is changed the preop area will call you the afternoon before. - You and your visitor will be asked to self-screen and do not enter if you have any COVID symptoms. Please call surgeon if you need to reschedule. - A mask is optional within the hospital at this time. Patients may have clear liquids (water, carbonated beverages, clear teas, apple juice) until 3 hours prior to surgery (7:30AM) with a maximum of 20 ounces. - No food from midnight until time of surgery and no smoking, or chewing tobacco (or any form of nicotine). No chewing gum, candy or mints. Take only the following medications with a SIP of water on the morning of surgery: ___FLUOXETINE, GABAPENTIN, METOPROLOL DO NOT STOP ANY OF YOUR OTHER PRESCRIPTION MEDICATIONS PRIOR TO SURGERY EXCEPT THE FOLLOWING Hold all vitamins and supplements for 3 days per anesthesiologist.-LAST DOSE 01/07/25 Medications to discontinue per physician ____HOLD ASPIRIN 7 DAYS PRE-OP PER DR QUINTANILLA Date to take last dose 01/03/25 Please no make-up, nail kinyarwanda, hairspray, perfume, deodorant, or body powder the day of surgery.? No jewelry (including any body piercings) or valuables the day of surgery, leave them at home.? Please take a shower or bath the night before, or the morning of, surgery with an antibacterial soap.? Wear comfortable, loose fitting clothing.? - Jewelry must be removed prior to entering the operating room.? Rings and piercings that are not removed may be cut off. - The hospital will not accept responsibility for valuables.? - Please leave all valuables, including medications, at home the day of surgery. If you are going home after surgery, a licensed electric pile driver operator must drive you home.? - NO public transportation without another adult if you receive anesthesia. - We recommend that an adult stay with you for 24 hours following discharge. - We also recommend that you do not drive, make important decision, drink alcoholic beverages, or take any drugs that were not prescribed by your health care provider for at least 24 hours after your discharge time. Follow any additional instructions given to you from your surgeon. Telephone instructions given to ____PATIENT & WIFE and asked if any additional questions and then verbalized understanding. Patient advised to call surgeon office or pre surgery nurse liaison [phone] if any additional questions.
[2025-01-11] VITALS (11 sets, daily range): BP systolic 135–177; BP diastolic 65–91; PULSE 64–93; RESP 11–18; TEMP 36.3–36.7; O2SAT 92–100; BMI 38.2
--- NOTE | ~2025-01-11 | XR_ITS ---
Right Knee Technique: Portable AP and crosstable lateral views Clinical History: Status post TKR Findings: Patient is status post total knee replacement. Orthopedic hardware alignment appears anatom ic. No hardware complication is evident. Subcutaneous emphysema and swelling is likely postoperative in nature. No acute osseous fracture is seen. Impression: Status post total knee replacement, without evidence of hardware complication. Reviewed, dictated and finalized at location . Impression: Status post total knee replacement, without evidence of hardware complication.
--- OUTSIDE RECORDS SUMMARY | 2025-01-11 02:48 | XMS_ITS ---
Author Organization [facility] Address [address] [place] [address] Care Team Providers Care Arterial Embalmer Name Role Phone Robb Sepulveda MD Primary Care Provider Torrie Carlos Unavailable [phone] REASON FOR VISIT GEN Lamb Social History Sex Assigned At : Social History Observation Description Sex Assigned At Male Encounters Encounter Location Date Provider Diagnosis [facility] [address] [facility] [address] [place] [address] 12/15/2024 Torrie Peace Plan Of Treatment Next Appt Details Provider Name:Torrie Peace, 03/16/2025 08:00:00 AM, [address], [facility] [address], [place], [address], Progress Notes * RILEY GONZALEZ CDOB:[birth year] (69 yo M)Acc No.[id number]:12/15/2024 Patient: Wilder RILEY MILLER :1955 A ge:69 Y S ex:Male Phone: Address:[address] [place], [address] * true * Date: Generated for Printi ng/Faxing/eTransmitting on: 0 01/11/2025 02:47 AM CDT
--- OUTSIDE RECORDS SUMMARY | 2025-01-11 02:48 | XMS_ITS ---
Author Organization [facility] [employer] [facility] Address [address] [facility] [address] [place] [address] Care Team Providers Care Gyn Name Role Phone Robb Sepulveda MD Primary Care Provider UnavailTorrie Williamson Unavailable [phone] Allergies No Known Allergies REASON FOR VISIT 3 Week F/U, Depression screening negative Medications Medication SIG (Take, Route, Frequency, Duration) Notes Start Date End Date Status Atorvastatin Calcium 80 MG Oral 04/24/2023 Unknown Metoprolol Tartrate 25 MG Oral 04/24/2023 Unknown Tamsulosin HCl 0.4 MG Oral 04/24/2023 Unknown Losartan Potassium 50 MG Oral 04/24/2023 Unknown tiZANidine HCl 2 MG Oral 04/24/2023 Unknown Rexulti 1 MG 1 tablet Orally Once a day for 30 days Active traZODone HCl 50 MG 1 tablet at bedtime Oral Once a day for 90 days Active Memantine HCl 10 MG Oral 04/24/2023 Active FLUoxetine HCl 20 MG 2 capsule Oral Once a day for 90 days Active Social History Tobacco Use: Social History Observation Description Date Details (start date - stop date) Former Smoker NA - NA Sex Assigned At : Social History Observation Description Sex Assigned At Male Household Question Answer Notes Marital status: Tobacco Control (Standard) Question Answer Notes Tobacco use: Former smoker Vital Signs BMI 36.44 kg/m2 01/05/2025 Height-cm 177.80 cm 01/05/2025 Weight-kg 115.21 kg 01/05/2025 Blood pressure systolic 138 mm Hg 01/06/20 25 Blood pressure diastolic 86 mm Hg 025 Heart Rate 66 /min 01/05/2025 Height 70.00 in 01/05/2025 Weight 254 lbs 01/05/2025 Encounters Encounter Location Date Provider Diagnosis [facility] [email or web address] [facility] [address] [place] [address] 01/05/2025 Torrie Peace Generalized anxiety disorder F41.1 ; Alcohol dependence, in remission F10.21 ; Major depressive disorder, recurrent severe without psychotic features F33.2 ; Mild neurocognitive disorder G31.84 ; Encounter for screening for depression Z13.31 and Encounter for screening for cardiovascular disorders Z13.6 Assessments Encounter Date Diagnosis (ICD Code) Assessment Notes Treatment Notes Treatment Clinical Notes Section Notes 01/05/2025 Generalized anxiety disorder (ICD-10 - F41.1) 01/05/2025 Alcohol dependence, in remission (ICD-10 - F10.21) 01/05/2025 Major depressive disorder, recurrent severe without psychotic [...] Provider can order medication once approval received. 01/05/2025 Mild neurocognitive disorder (ICD-10 - G31.84) Memantine 10mg BID per PCP 01/05/2025 Encounter for screening for depression (ICD-10 - Z13.31) 01/05/2025 Encounter for screening for cardiovascular disorders (ICD-10 - Z13.6) 01/05/2025 Other Stable, cont current medications -refills sent in today. Patient educated on all medications including potential [...] Name Sig Start Date Stop Date Notes Rexulti 1 MG 1 tablet Orally Once a day for 30 days traZODone HCl 50 MG 1 tablet at [...] Memantine 1 0mg BID per PCP Other Stable, cont current medications -refills sent in today. Patient educated on all medications including potential benefits, side effects, risks. Educated on proper dosing schedule and importance of compliance. Next Appt Details Follow Up: 2 Months, Reason: med f/u Provider Name:Torrie K Nata, 03/16/2025 08:00:00 AM, [address], [facility] [address], [place], [address], Progress Notes * RILEY GONZALEZ CDOB:[birth year] (70 yo M)Acc No.[id number]:01/05/2025 Patient: RILEY CONNELL Provider: ELDER HICKEY :1955 A ge:70 Y S ex:Male Date:01/05/2025 Phone: Address:[address] [place] [address] [id number] Pcp:Robb Sepulveda MD Subjective: * Chief Complaints: * 3 Week F/UDepression screening negative * HPI: D epression Screening: DEMARIO-7 (2018 Edition) F eeling nervous, anxious, or on edge N ot at all N ot being able to stop or control worrying?Not at all W orrying too much about different things N ot at all T rouble relaxing N ot at all B eing so restless that it is hard to sit still N ot at all B ecoming easily annoyed or irritable N ot at all F eeling afraid as if something awful might happen N ot at all I f you checked any problems, how difficult have they made it for you to do your work, take care of things at home, or get along with other people? N ot difficult at all I nterpretation of Total ( 0 to 4) No Anxiety [place]-Suicide Severity Rating Scale: Suicide Risk (CSRS-screener) i n the past one month Have you wished you were or wished you could go to sleep and not wake up? N o i n the past one month Have you actually had any thoughts of killing yourself? N o D epression screening: PHQ-9 L ittle interest or pleasure in doing things?Not at all F eeling down, depressed, or hopeless N ot at all T rouble falling or staying asleep, or sleeping too much N ot at all F eeling tired or having little energy N ot at all P oor appetite or overeating N ot at all F eeling bad about yourself or that you are a failure, or have let yourself or your family down N ot at all T rouble concentrating on things, such as reading the newspaper or watching television N ot at all M oving or speaking so slowly that other people could have noticed; or the opposite, being so fidgety or restless that you have been moving around a lot more than usual N ot at all T houghts that you would be better off or of hurting yourself in some way N ot at all T otal Score 0 I nterpretation M oderate Depression H istory of Presenting Problem: Medication Side Effects d enies. Anxiety w ith excessive worry, with restlessness . ? Depression R ates depression 10/22 with 10 being most severe. . Mood lability n o hx francisco. Psychosis n o hx psychosis. Sleep disturbance w ith a history of sleep apnea-CPAP. Suicidal ideation d enies. Memory S LUMS=26 1 . Here for follow up. Juliatutu started last apt. present with him today. States it is going really well, I dont have any irritating concerns . reports he is feeling more motivated, he is not reluctant to do things . Denies feeling hopeless or helpless, no suicidal ideation. Denies feeling anxious, denies recent panic attacks. States I am enjoying things again . Has outpatient knee surgery on Friday. Sleep is good, compliant with CPAP, getting about 7-8 hours nightly. Energy is good. Appetite is good. P ast Psychiatric Hospitalizations: previous admissions/IOP/PHP: none [...] depressed mood, anxiety, irritability, auditory / visual hallucinations, depressed mood. C omments?See HPI for details. P erformance Met: N ormal blood pressure reading documented, follow-up not required ( G8783)Performance Met: N ormal blood pressure reading documented, [...] T obacco Control (Standard) T obacco use: F ormer smoker M igrated Social History: M igrated Social History: Alcohol Intake: None 04/24/2023,Tobacco Years: Former smoker 03/14/2023. H ousehold: H ousehold M arital status: m arried M iscellaneous: A dvance Care Planning A dvance Directive F ULL CODE * Medications: T akingMemantine HCl 10 MG Tablet Oral FLUoxetine HCl 20 MG Capsule 2 capsule Oral Once a day traZODone HCl 50 MG Tablet 1 tablet at bedtime Oral Once a day Rexulti 1 MG Tablet 1 tablet Orally Once a day Taking Memantine HCl 10 MG Tablet Oral Taking FLUoxetine HCl 20 MG Capsule 2 capsule Oral Once a day Taking traZODone HCl 50 MG Tablet 1 tablet at bedtime Oral Once a day Taking Rexulti 1 MG Tablet 1 tablet Orally Once a day UnknownAtorvastatin Calcium 80 [...] N .K.D.A.no[Allergies Verified] Objective: * Vitals: B P:138/86mm Hg, HR:66/min, Wt:254lbs, Wt-k.21 kg, Ht: 70.00 in, Ht-cm: 177.80 cm, BMI:36.44Index, Body Surface Area: 2.38. * Examination: P sychiatry: Dementia S afety concern screening for dangerousness to self and environment risks provided: Y es Appearance: w ell-groomed. Abnormal body movements: n one. Affect / mood: a ppropriate. Attention: g ood. Attitude: c ooperative. Homicidal [...] content: a ppropriate. Thought process: i ntact. Assessment: * Assessment: 1. M ajor depressive disorder, recurrent severe without psychotic features - F33.2 (Primary)? 2. G eneralized anxiety disorder - F41.1 3 . A lcohol dependence, in remission - F10.21 4 . M ild neurocognitive disorder - G31.84 5 . E ncounter for screening for depression - Z13.31 6 . E ncounter for screening for cardiovascular disorders - Z13.6 Plan: * Treatment: 2. M ild neurocognitive disorder Notes: Memantine 10mg BID per PCP 3. O thers Notes: Stable, cont current medications -refills sent in today. Patient educated on all medications including potential benefits, side effects, risks. Educated on proper dosing schedule and importance of compliance. Clinical Notes: -Assessment and treatment plan reviewed with patient. -Compliance with treatment plan importance discussed. -Discussed the risks/benefits of this medication -Discussed medication side effects. -Contact office if symptoms worsen. -Discussed that it can take up to 6-8 weeks to see full therapeutic effects of psychotropic medications. -Crisis prevention hotline [phone]. * Procedure Codes: G 8783 NORMAL BP READING DOC F/U NOT [id number] BEHAV ASSMT W/SCORE & DOCD/STAND [id number] MOST RECENT SYSTOLIC BP < 140MM [id number] MOST RECENT DIASTOLIC BP < 90MM [id number] CLIN DEPRESSION SCREEN [id number] VISIT COMPLEXITY INHERENT TO ONGOING CARE RELATED TO A PATIENT'S SINGLE, SERIOUS CONDITION OR A COMPLEX CONDITION * Follow Up: 2 Months (Reason: med f/u) * Dipaking Information: * Visit Code: 98608 OFFICE OUTPATIENT VISIT 25 MINUTES DETAILED HISTORY AND EXAM/MODERATE MEDICAL DECISION MAKING. * Procedure Codes: G8783 NORMAL BP READING DOC F/U NOT RQR. 77010 BEHAV ASSMT W/SCORE & DOCD/STAND INSTRUMENT. G8752 MOST RECENT SYSTOLIC BP < 140MM HG. G8754 MOST RECENT DIASTOLIC BP < 90MM HG. G8431 CLIN DEPRESSION SCREEN DOC. G2211 VISIT COMPLEXITY INHERENT TO ONGOING CARE RELATED TO A PATIENT'S SINGLE, SERIOUS CONDITION OR A COMPLEX CONDITION. * Sign off status: Completed true * Provider: ELDER HICKEY Date: 0 01/05/2025 Generated for Saranya Isaacs/Sofya on: 0 01/11/2025 02:47 AM CDT History and Physical Notes * HPI (History of Present Illness) Category Sub-Category Detail Notes Category Not es History of Presenting Problem Anxiety with excessive worry, with restlessness Here for follow up. Zainab started last apt. present with him today. States it is going really well, I dont have any irritating concerns . reports he is feeling more motivated, he is not reluctant to do things . Denies feeling hopeless or helpless, no suicidal ideation. Denies feeling anxious, denies recent panic attacks. States I am enjoying things again . Has outpatient knee surgery on Friday. Sleep is good, compliant with CPAP, getting about 7-8 hours nightly. Energy is good. Appetite is good. Depression Rates depression 1/1 0 with 10 being most severe. Suicidal ideation denies Sleep disturbance with a history of sl eep apnea-CPAP Psychosis no hx psychosis Mood lability no hx francisco Memory SLUMS=26 08/10/2024 Medication Side Effects denies Past Psychiatric Hospitalizations previous admissions/IOP/PHP: none history of SI/SA: denies family psychiatric history: parents-depression previously trialled medications: Prozac, Vraylar (not covered), abilify (oral movements), Wellbutrin (increased anxiety). history of neglect/abuse/trauma: denies substance use history: history of alcohol dependence-was drinking 8 beers daily or a pint of whiskey-quit heavy drinking in 2013 Depression screening PHQ-9 Little inte rest or pleasure in doing things: Not at all Feeling down, depressed, or hopeless: No t at all Trouble falling or staying asleep, or sl eeping too much: Not at all Feeling tired or having little energy: N ot at all Poor appetite or overeating: Not at all Feeling bad about yourself o r that you are a failure, or have let yourself or your family down: Not at all Trouble concentrating on thi ngs, such as reading the newspaper or watching television: Not at all Moving or speaking so slowly that other people could have noticed; or the opposite, being so fidgety or restless that you have been moving around a lot more than usual: Not at all Thoughts that you would be b adonis off or of hurting yourself in some way: Not at all Total Score: 0 Interpretation: Moderate Depression Depression Screening DEMARIO-7 (2018 Edition) Feelin g nervous, anxious, or on edge: Not at all Not being able to stop or control worryi ng: Not at all Worrying too much about different things : Not at all Trouble relaxing: Not at all Being so restless that it is hard to sit still: Not at all Becoming easily annoyed or irritable: No t at all Feeling afraid as if something awful chey ht happen: Not at all If you checked any problems, how difficult have they made it for you to do your work, take care of things at home, or get along with other people?: Not difficult at all Interpretation of Total: (0 to 4) No Anx iety [place]-Suicide Severity Rating Scale Suicide Risk (CSRS-screener) in the past one month Have you wished you were or wished you could go to sleep and not wake up?: No in the past one month Have y ou actually had any thoughts of killing yourself?: No Examination Category Sub-Category Detail Notes Category Not [...]
--- OUTSIDE RECORDS SUMMARY | 2025-01-11 02:48 | XMS_ITS | Data Portability ---
Author Organization [facility]io CésarWest [facility] Address [address] [place] [address] Care Team Providers Care Web Marketing Assistant Name Role Phone RICHARD RAMOS Primary Care Provider [phone] Assessment No assessment recorded. Plan of Treatment Reminders Order Date Submit Date Provider Last Modified By Organization Details Last Modified Time Details Appointments None recorded. Lab PSA, serum or plasma [address] [facility] (Lab), [address] [place] [address], [phone], 8 10:06:06 CMP, serum or plasma [address] [facility] (Lab), [address] [place] [address], [phone], 8 10:06:[address] [facility] (Lab), [address] [place] [address], [phone], 8 17:08:33 lipid panel, serum [address] [facility] (Lab), [address] [place] [address], [phone], 8 10:06:07 TSH, ultra-sens itive, serum [address] [facility] (Lab), [address] [place] [address], [address], 8 10:06:06 Referral urologist referral - please call patient to schedule appt. Thank you 2017 018 [email or web address] Not available 8 15:01:21 Procedures None recorded. Surgeries None recorded. Imaging None recorded. Medication Orders hydrocodon e 5 mg-acetami nophen 325 mg tablet 2017 018 INTERFACE Not available 8 11:19:46 tramadol 50 mg tablet 2017 018 [email or web address] Not available 8 11:12:18 tramadol 50 mg tablet 2017 018 Not available 8 11:12:18 Patient TargetsNo targets recorded. Patient Instructions Encounter Date Encounter Id Patient Instructions Last Modified By Organization Details Last Modified Time 08/20/2018 [id number] knee arthritis: care instructions [email or web address] Not available 08/20/2018 17:21:58 08/27/2018 [id number] learning about high blood pressure [email or web address] Not available 08/27/2018 11:19:43 Reason for Referral Urologist Referral for Abnor mal urine altered stream/milky urine please call patient to schedule appt. Thank you Referring Physician: Richard Ramos, Internal Medicine, Encounter Date: 12/24/2017 Results Created Date Observation Date Name Description Value Unit Range Abnormal Flag Note LastModifiedBy Organization Detail LastModifiedTime 12/02/19 18 XR, knee, 4 or more view No observ ation record ed. [email or web address] Not Available 2017 17:02:35 Result Notes None recorded. Problems Name Problem SNOMED Code Status Onset Date Resolution Date Notes Provider Name and Address Organization Details Recorded Time Pain in bilateral legs 782935907899 85016 Active 2016 sharp shooting Richard Ramos MD Attn: [place] hill,[address] [facility], [place], [address], [facility] 7 17:04:44 Abnormal liver function 43328196 Active 2016 Richard Ramos MD Attn: [place],[address] [facility], [place], [address], [place] 7 17:19:03 Obesity 302665237 Active 2016 Richard Ramos MD Attn: [place],[address] [facility], [place], [address], [place] [facility] 7 17:19:27 Abnormal urine 325507235 Active 2017 Richard Ramos MD Attn: [place],[address] [facility], [place], [address], [place] [facility] 8 12:45:34 Bilateral knee pain Active 2017 Richard Ramos MD Attn: Accountlinda g,[address] [facility], [place], [address], [place] [facility] 8 14:05:34 Essential hypertens ion 90031876 Active Richard Ramos MD Attn: Accountlinda g,[address] [facility], [place], [address], [place] [facility] 6 10:49:08 Osteoarth ritis of knee 068136585 Active Richard Ramos MD Attn: Accountlinda g,[address] [facility], [place], [address], [place] [facility] 6 10:49:08 Psoriasis 9486787 Active Richard Ramos MD Attn: So g,[address] [facility], [place], [address], [place] [facility] 5 12:10:32 Depressiv e disorder 05660165 Active Richard Ramos MD Attn: Accountlinda g,[address] [facility], [place], [address], [place] [facility] 6 10:49:08 Perifolli culitis 98563240 Active Richard Ramos MD Attn: Accountin g,[address] [facility], [place], [address], [place] [facility] 6 12:09:24 Skin lesion 52105705 Active Richard Ramos MD Attn: Accountin g,[address] [facility], [place], [address], [place] [facility] 6 11:18:35 Neck pain 63826071 Active Richard Ramos MD Attn: [place],[address] [facility], [place], [address], [place] [facility] 6 10:49:08 Restless legs 41149187 Active Richard Ramos MD Attn: Accountlinda hill,[address] [facility], [place], [address], [place] [facility] 6 11:18:35 Ganglion of hand 704917625 Active Richard Ramos MD Attn: Accountlinda hill,[address] [facility], [place], [address], [place] [facility] 6 10:49:08 Medicatio n monitorin g Active 2016 Richard Ramos MD Attn: Accountlinda hill,[address] [place], [address], [place] [facility] 7 22:19:45 Family history of Liver disease 601352829 Active 2016 Richard Ramos MD Attn: [place],[address] [facility], [place], [address], [place] [facility] 7 10:58:24 History of polyp of colon 410600628 Active 2016 Richard Ramos MD Attn: Accountlinda hill,[address] [facility], [place], [address], [place] [facility] 7 11:05:22 Screening for malignant neoplasm of prostate Active 2016 Richard Ramos MD Attn: Accountin g,[address] [facility], [place], [address], [place] [facility] 7 11:05:59 HIV screening Active 2016 Richard Ramos MD Attn: [place],[address] [place], [address], [place] [facility] 7 11:06:31 Active immunizat ion Active 2016 Richard Ramos MD Attn: So g,[address] [facility], [place], [address], [facility] 7 11:07:57 Problem Notes None recorded. Procedures Surgical History Date Name Laterality Status Provider Name and Address Organization Details Recorded Time 1 Knee Surgery completed Richard Ramos MD Attn: [facility]ing[facility] [address], [place], [address], [facility] 03/02/2015 11:45:05 Other completed Ranjith Ferguson [place] [facility] [place] 03/02/2015 11:12:44 Other completed Ranjith Ferguson MA [facility] 03/02/2015 11:12:44 Imaging Results Imaging Date Name Status LastModified by Organiz ation Details LastModified Time 12/02/2017 XR, knee, 4 or more view completed [email or web address] Information not available 12/04/2017 17:02:35 Procedure Notes [...] Not Available Not Available Not Available Fluvirin 3284-5798 45 mcg (15 mcg x 3)/0.5 mL [...] Updated DateTime 8 177.8 cm 38.3 kg/m2 027928. 16 g 98.3 [degF] 96 % 96 % 86 /min 138 mm[Hg] 84 mm[Hg] Dulce Garay MA [facility] 8 12:27:58 Date Recorded Body height Body mass index (BMI) Body weight Body temperature Oxygen saturation Oxygen saturation in Arterial blood by Pulse oximetry Heart rate Systolic blood pressure Diastolic blood pressure Provider Name and Address Organization Details Last Updated DateTime 8 177.8 cm 37 kg/m2 997786. 11 g 98.2 [degF] 96 % 96 % 76 /min 140 mm[Hg] 84 mm[Hg] Dulce Garay [place] [facility] 8 13:37:14 Date Recorded Body height Body mass index (BMI) Body weight Body temperature Oxygen saturation Oxygen saturation in Arterial blood by Pulse oximetry Heart rate Systolic blood pressure Diastolic blood pressure Provider Name and Address Organization Details Last Updated DateTime 8 177.8 cm 36.6 kg/m2 846252. 34 g 98 [degF] 97 % 97 % 75 /min 130 mm[Hg] 76 mm[Hg] Wayne Butts MA [facility] 8 16:28:47 Date Recorded Body height Body mass index (BMI) Body weight Body temperature Oxygen saturation Oxygen saturation in Arterial blood by Pulse oximetry Heart rate Systolic blood pressure Diastolic blood pressure Provider Name and Address Organization Details Last Updated DateTime 8 177.8 cm 36.6 kg/m2 443759. 05 g 98.2 [degF] 98 % 98 % 74 /min 138 mm[Hg] 82 mm[Hg] Dulce Garay MA [facility] 8 10:57:58 Social History Question Answer Notes LastModified by Organizat ion Details LastModified Time Tobacco Smoking Status Former Smoker Ranjith Ferguson MA [facility] 03/02/2015 11:12:44 What Is Your Level Of [...] rS-Ad26, PF, 0.5 mL 1 completed [facility] 04/12/2021 16:15:22 Tdap 7 completed Not Available [facility] 10/30[facility]2019 02:44:48 Influenza, split virus, quadrivalent, preservative 7 completed Not Available [facility] 10/30/2019 02:42:36 Influenza, split virus, quadrivalent, preservative 8 completed Not Available [facility] 10/30/2019 02:51:07 Past Encounters Encounter ID Performer Location Encounter Start Date Encounter Closed Date Diagnosis/Indication Diagnosis SNOMED-CT Code Diagnosis ICD10 Code Diagnosis Note [id number] Michael (Adult Med) [address] [place] [address] 03/02/2015 10:31:18 03/02/2015 12:14:26 Essential hypertension 32070220 Osteoarthr itis of knee 753145909 Screening for malignant neoplasm of prostate 752904055 History of polyp of colon 445493329 Psoriasis 7108369 [id number] MD Michael Nair (Adult Med) [address] [place] [address] 05/02/2015 11:05:15 05/02/2015 12:59:29 Osteoarthritis of knee 641646700 Will increase to tramadol to q 6hrs and dispense 110 [id number] MD Michael Nair (Adult Med) [address] [place] [address] 08/02/2015 16:17:29 08/02/2015 17:45:24 Depressive disorder 08791383 F32.9 Essential hypertension 65697422 I10 Osteoarthr itis of knee 963630747 M17.9 Will increase to tramadol to q 6hrs and dispense 110 [id number] Cristine Rodriguez (Adult Med) [address] [place] [address] 10/02/2015 10:31:39 10/02/2015 16:14:10 Essential hypertension 53819653 I10 History of polyp of colon 253565506 Z86.010 Osteoarthr itis of knee 664118780 M17.9 Will increase to tramadol to q 8 hrs Depressive disorder 3548 9007 F32.9 Perifolliculitis 8036258 4 L01.02 Localised. Skin lesion 46330094 L98 .9 Lefdt faith [id number] Cayla Rodriguez (Adult Med) [address] [place] [address] 01/01/2016 10:20:13 01/01/2016 12:10:47 Essential hypertension 10376170 I10 Neck pain 04258127 M54.2 Perifolliculitis 1743697 4 L01.02 Localised. Skin lesion 01247631 L98 .9 Right thigh [id number] Cristine Bear is Michael (Adult Med) [address] [place] [address] 04/01/2016 09:41:34 04/01/2016 11:21:04 Essential hypertension 16743734 I10 Depressive disorder 3548 9007 F32.9 Skin lesion 37648651 L98 .9 Right thigh Restless legs 68274261 G 25.81 Osteoarthr itis of knee 696881533 M17.9 Will increase to tramadol to q 8 hrs [id number] Wendy Rodriguez (Adult Med) [address] [place] [address] 07/23/2016 09:45:34 07/23/2016 10:50:06 Essential hypertension 82544656 I10 Neck pain 07821647 M54.2 Osteoarthr itis of knee 407432138 M17.9 Will increase to tramadol to q 8 hrs Depressive disorder 3548 9007 F32.9 Ganglion of hand 5621837 07 M67.696 [id number] MD Michael Nair (Adult Med) [address] [place] [address] 12/24/2016 09:47:34 12/24/2016 17:23:41 Osteoarthritis of knee 926952994 M17.9 Essential hypertension 01552675 I10 Psoriasis 2547888 L40.9 Family his tory of Liver disease 846810766 Z83.79 History of polyp of colon 044999618 Z86.010 Screening for malignant neoplasm of prostate 382934405 Z12.5 HIV screening 571387836 Z11.4 Active immunization 3387 9002 Z23 [id number] MD Michael Nair (Adult Med) [address] [place] [address] 04/29/2017 11:24:31 04/30/2017 18:31:41 Depressive disorder 24443696 F32.9 Will taper venlafaxin e and start duloxetine Family his tory of Liver disease 388730747 Z83.79 Osteoarthr itis of knee 189252083 M17.9 [id number] MD Michael Nair (Adult Med) [address] [place] [address] 07/01/2017 10:20:13 07/01/2017 11:45:17 Essential hypertension 31417051 I10 Depressive disorder 3548 9007 F32.9 Start amitriptyl ine Active immunization 3387 9002 Z23 [id number] MD Michael Nair (Adult Med) [address] [place] [address] 09/24/2017 16:13:12 09/24/2017 17:19:00 Essential hypertension 37285929 I10 Restless legs 98402157 G 25.81 Osteoarthr itis of knee 697331783 M17.9 Have advised against combining tramadol and hydrocodon e Pain in bi lateral legs 8582640215 2231797 M79.604 M79.605 Will add am gabapentin Family his tory of Liver disease 058197232 Z83.79 Abnormal l iver function 77177843 K76.89 labs on return in 12/2017 Obesity 324691660 E66.9 [id number] MD Michael Nair (Adult Med) [address] [place] [address] 12/24/2017 12:12:33 12/24/2017 12:50:54 Osteoarthritis of knee 132210132 M17.9 Essential hypertension 58450044 I10 Screening for malignant neoplasm of prostate 030594339 Z12.5 Abnormal l iver function 23956208 K76.89 labs on return in 12/2017 Family his tory of Liver disease 225008673 Z83.79 Abnormal urine 827936951 R82.90 [id number] MD Michael Nair (Adult Med) [address] [place] [address] 05/12/2018 12:32:57 05/12/2018 14:14:10 Bilateral knee pain 9858701629 5394263 M25.561 M25.940 [id number] FREEDOM Alexandre (Adult Med) [address] [place] [address] 06/29/2018 15:24:02 07/06/2018 10:30:40 Administration of influenza vaccine 70269571 Z23 [id number] Kam Aguirre MD [facility] (Adult Med) [address] [place] [address] 08/20/2018 15:52:29 08/21/2018 13:55:09 Osteoarthritis of knee 100339183 M17.0 [id number] MD Michael Nair (Adult Med) [address] [place] [address] 08/27/2018 10:43:49 08/27/2018 12:03:31 Bilateral knee pain 3483034367 2358043 M25.561 M25.562 Family his tory of Liver disease 446275425 Z83.79 History of polyp of colon 483337771 Z86.010 Essential hypertension 14803016 I10 Health Concerns Section Related Observation LastModified by Organization Detai ls LastModified Time None Recorded Concern Status LastModified by Organization Details LastModified Time None Recorded Advance Directives Directive None Recorded Payers Encounter Date Sequence Insurance Name Policy Number Policy Melgoza Covered Member ID Melgoza Member ID Guarantor Name 12/24/2017 1 [place] [id number] Rene Montes [id number] 20 Rene Montes 05/12/2018 1 [place] [id number] Rene Montes [id number] Rene Montes 06/29/2018 1 [place] [id number] Rene Montes [id number] Rene Montes 08/20/2018 1 [place] [id number] Rene Montes [id number] Rene Montes 08/27/2018 1 [place] [id number] Rene Montes [id number] Rene Montes Notes Date Note Type Note Provider Name and Address Organization Details Recorded Time 12/24/2017 text/html Scheduled for R knee surgery in 1 month. Has a weaker urinary stream than usual. Episodic burning and milky appearance to urine Richard Ramos MD Attn: Accounting,[address] [place], [address], [facility] 12/24/2017 12:49:41 05/12/2018 text/html Is [...] drug. Richard Ramos MD Attn: Accounting,[address] [facility], [place], [address], [facility] 05/12/2018 14:10:33 08/20/2018 text/html Refills of tramadol, Dr.L. Ramos 's patent. knees pain all the time. Right knee was operated , had tried joints injection but still has pain, on tramadol for about [address] Franck Ramos will be back on next friday08-24-2018. He then can contact him futher care. Kam Aguirre MD Attn: Accounting,[address] [facility], [place], [address], [facility] 08/20/2018 17:24:56 08/27/2018 text/html Was informed by GI that he should no longer use NSAIDs. Concerned about rashes associated with Tramadol. Richard Ramos MD Attn: Accounting,[address] [facility], [place], [address], [place] [facility] 08/27/2018 11:20:38
--- OUTSIDE RECORDS SUMMARY | 2025-01-11 02:48 | XMS_ITS ---
Author Organization [facility] Address [address] [facility] [address] [place] [address] Care Team Providers Care Brazing Machine Operator Name Role Phone Robb Sepulveda MD Primary Care Provider Torrie Carlos Unavailable [phone] REASON FOR VISIT Therapy Social History Sex Assigned At : Social History Observation Description Sex Assigned At Male Encounters Encounter Location Date Provider Diagnosis [facility] [address] [place] [address] 12/15/2024 Torrie Peace Plan Of Treatment Next Appt Details Provider Name:Torrie Peace, 03/16/2025 08:00:00 AM, [address], [facility] [address], [place], [address], Progress Notes * RILEY GONZALEZ CDOB:[birth year] (69 yo M)Acc No.[id number]:12/15/2024 Patient: Wilder RILEY MILLER :1955 A ge:69 Y S ex:Male Phone: Address:[address] [place], [address] * true * Date: Generated for Printi ng/Faxing/eTransmitting on: 0 01/11/2025 02:48 AM CDT
--- OUTSIDE RECORDS SUMMARY | 2025-01-11 02:48 | XMS_ITS | Patient Health Record ---
Author Organization [facility] As [place] Address [address] [place] [address] Care Team Providers Care Pediatric Dental Hygienist Name Role Phone Robb Sepulveda MD Primary Care Provider UnavailTorrie Williamson Unavailable [phone] Migration, Provider Unavailable Unavailable Allergies No Known Allergies Reason For Referral No Information Medications Medication SIG (Take, Route, Frequency, Duration) Notes Start Date End Date Status Atorvastatin Calcium 80 MG Oral 04/24/2023 Unknown Rexulti 1 MG [...] tiZANidine HCl 2 MG Oral 04/24/2023 Unknown Immunizations Vaccine Route [...] Question Answer Notes Tobacco use: Former smoker Problems Problem Type SNOMED Code ICD Code Onset Dates Problem Status W/U Status Risk Notes Problem Chronic alcoholism in remission (149461966) Alcohol dependence, in remission (F10.21) Active confirmed Problem Severe recurrent major depression without psychotic features (61398950) Major depressive disorder, recurrent severe without psychotic features (F33.2) Active confirmed Problem Generalized anxiety disorder (77320050) Generalized anxiety disorder (F41.1) Active confirmed Problem Mild neurocognitive disorder (882034172) Mild neurocognitive disorder (G31.84) Active confirmed Vital Signs Heart Rate 66 /min 01/05/2025 Height-cm 177.80 cm 01/05/2025 Blood pressure diastolic 86 mm Hg 01/05/2025 Weight-kg 115.21 kg 01/05/2025 Height 70.00 in 01/05/2025 Blood pressure systolic 138 mm Hg 01/05/2025 Weight 254 lbs 01/05/2025 BMI 36.44 kg/m2 01/05/2025 Encounters Encounter Location Date Provider Diagnosis [facility] [address] [facility] [address] [place] [address] 05/11/2024 Torrie Nata Major depressive disorder, recurrent severe without psychotic features F33.2 ; Generalized anxiety disorder F41.1 and Alcohol dependence, in remission F10.21 [facility] [address] [place] [address] 06/11/2024 Torrie Nata Major depressive disorder, recurrent severe without psychotic features F33.2 ; Generalized anxiety disorder F41.1 and Alcohol dependence, in remission F10.21 [facility] [address] [facility] [address] [place] [address] 07/09/2024 Torrie Nata Major depressive disorder, recurrent severe without psychotic features F33.2 ; Generalized anxiety disorder F41.1 and Alcohol dependence, in remission F10.21 [facility] [address] [place] [address] 08/06/2024 Torrie Nata [facility] [address] [place] [address] 08/10/2024 Torrie Nata Major depressive disorder, recurrent severe without psychotic features F33.2 ; Generalized anxiety disorder F41.1 ; Alcohol dependence, in remission F10.21 and Mild neurocognitive disorder G31.[address] [facility] [address] [place] [address] 09/24/2024 Torrie Nata Major depressive disorder, recurrent severe without psychotic features F33.2 ; Generalized anxiety disorder F41.1 ; Alcohol dependence, in remission F10.21 and Mild neurocognitive disorder G31.84 [facility], [facility] [address] [place] [address] 11/05/2024 Torrie Nata Major depressive disorder, recurrent severe without psychotic features F33.2 ; Generalized anxiety disorder F41.1 ; Alcohol dependence, in remission F10.21 and Mild neurocognitive disorder G31.84 [facility], [facility] [address] [place] [address] 12/15/2024 Torrie Nata Major depressive disorder, recurrent severe without psychotic features F33.2 ; Generalized anxiety disorder F41.1 ; Alcohol dependence, in remission F10.21 and Mild neurocognitive disorder G31.84 [facility], [facility] [address] [place] [address] 01/05/2025 Torrie Nata Generalized anxiety disorder F41.1 ; Alcohol dependence, in remission F10.21 ; Major depressive disorder, recurrent severe without psychotic features F33.2 ; Mild neurocognitive disorder G31.84 ; Encounter for screening for depression Z13.31 and Encounter for screening for cardiovascular disorders Z13.6 [facility], [facility] [address] [facility] [address] [place] [address] 02/28/2024 Provider Migration [facility], [facility] [address] [place] [address] 02/29/2024 Provider Migration [facility], [facility] [address] [place] [address] 05/24/2024 Torrie Nata Major depressive disorder, recurrent severe without psychotic features F33.2 [facility], [facility] [address] [place] [address] 11/05/2024 Torrie Peace [facility], [facility] [address] [place] [address] 05/10/2024 Torrie Peace [facility], [facility] [address] [place] [address] 05/18/2024 Torrie Nata Major depressive disorder, recurrent severe without psychotic features F33.2 [facility], [facility] [address] [facility] [address] [facility] [address] [place] [address] 09/24/2024 Torrie Nata [facility], [place] [address] [facility] [address] [place] [address] 12/07/2024 Torrie Nata [facility], [place] [address] [facility] [address] [place] [address] 12/13/2024 Torrie Nata [facility], [place] [address] [address] [facility] [address] [facility] [address] [place] [address] 12/13/2024 Torrie Nata [facility], [place] [address] [facility] [address] [place] [address] 12/15/2024 Torrie Nata [facility], [place] [address] [address] [facility] [address] [facility] [address] [place] [address] 12/15/2024 Torrie Peace Assessments Encounter Date Diagnosis (ICD Code) Assessment Notes Treatment Notes Treatment Clinical Notes Section Notes 05/11/2024 Major depressive disorder, recurrent severe without psychotic features (ICD-10 - F33.2) FLUOXETINE 80MG DAILY PER PCP 05/11/2024 Generalized anxiety disorder (ICD-10 - F41.1) 06/11/2024 Major depressive disorder, recurrent severe without psychotic features (ICD-10 - F33.2) 01/05/2025 Generalized anxiety disorder (ICD-10 - F41.1) 12/15/2024 Major depressive disorder, recurrent severe without [...] Provider can order medication once approval received. 11/05/2024 Major depressive disorder, recurrent severe without [...] 07/09/2024 Generalized anxiety disorder (ICD-10 - F41.1) 09/24/2024 Generalized anxiety disorder (ICD-10 - F41.1) 08/10/2024 Generalized anxiety disorder (ICD-10 - F41.1) 11/05/2024 Generalized anxiety disorder (ICD-10 - F41.1) 12/15/2024 Generalized anxiety disorder (ICD-10 - F41.1) 06/11/2024 Generalized anxiety disorder (ICD-10 - F41.1) 05/24/2024 Major depressive disorder, recurrent severe without psychotic features (ICD-10 - F33.2) Electronic Prior Authorization was requested for ARIPiprazole 2 MG Tablet. Provider can order medication once approval received. 01/05/2025 Alcohol dependence, in remission (ICD-10 - [...] dependence, in remission (ICD-10 - F10.21) 01/05/2025 Mild neurocognitive disorder (ICD-10 - G31.84) Memantine 10mg BID per PCP 12/15/2024 Alcohol dependence, in remission (ICD-10 - F10.21) 11/05/2024 Alcohol dependence, in remission (ICD-10 - F10.21) 09/24/2024 Alcohol dependence, in remission (ICD-10 - [...] for screening for depression (ICD-10 - Z13.31) 12/15/2024 Mild neurocognitive disorder (ICD-10 - G31.84) Memantine 10mg BID per PCP 01/05/2025 Encounter for screening for cardiovascular disorders (ICD-10 - Z13.6) 05/11/2024 Other Start Vraylar 1.5mg daily for [...] of psychotropic medications. -Crisis prevention hotline 988. 11/05/2024 Other Stop abilify due to [...] of psychotropic medications. -Crisis prevention hotline 988. 01/05/2025 Other Stable, cont current medications -refills [...] -Crisis prevention hotline 988. Plan Of Treatment Next Appt Details Provider Name:Torrie Brody Nata, 03/16/2025 08:00:00 AM, [address], [place], [address], Insurance Providers Payer Name Payer Address Payer Phone Subscriber Number Group Number Insured Name Patient Relationship to Insured Coverage Start Date Coverage End Date [facility] Medicare Replacemen t/Advantag e - [place] [address] [address] [place] [address] [id number] RILEY GONZALEZ Self - patient is the insured Medical (General) History Medical History History ICD Code Problems: Chronic alcoholism in remissio n Generalized anxiety disorder Moderately severe recurrent major depres adrian Severe recurrent major depression withou t psychotic features ,
--- OUTSIDE RECORDS SUMMARY | 2025-01-11 02:48 | XMS_ITS | CONTINUITY OF CARE DOCUMENT ---
Author Name onofre, onofre Address Unknown Organization [facility] Address [address] [place] [address] Phone [phone] Care Team Providers Care Acetylene Burner Name Role Phone Guy PETERSON, Ralph Unavailable [phone] BALWINDER PETERSON, ALFRED Unavailable [phone] GAY PETERSON, LAURA Unavailable PROBLEMS Condition Status Date Provider Notes CHEST [...] In-person encounter Office Visit Ralph Tovar MD [facility] Dyspnea on exertion--echo ef nl, 04/2024 , stress nuc nl, 10/2024Sleep apnea, on cpap - In-person encounter Office Visit Ralph Tovar MD [facility] Dyspnea on exertion--echo ef nl, 04/2024 , stress nuc nl, 10/2024Sleep apnea, on cpapCarotid arterial disease, 50-69% RAZ 04/2024 - In-person encounter Office Visit Ralph Tovar MD [facility] CHEST PAIN,-07/20 NUC EF 58PALPITATIONS BIGEMINY, TRIGEMINYHypertensionPrediabetesDyspnea on exertion--echo ef nl, 04/2024, stress nuc nl, VASleep apnea, on cpapCarotid arterial disease, 50-69% RAZ 04/2024 - In-person encounter Office Visit Ralph Tovar MD [facility] CHEST PAIN,-07/20 NUC EF 58 VITAL [...] mm[Hg] Jar ret pulse rate 66 /min [facility] blood pressure, cuff size regular Ja rr oxygen saturation, oximetry 97 % [facility] respiratory rate E&M 16 /min [facility] weight E&M 232 [lb_av] [facility] y height E&M 71 [in_i] Hill y [...] 0-149 3 cholesterol, serum 126 mg/dL [facility] [phone]/07/1 3 alanine aminotransferase (SGPT), serum 52 1/L [...] 3.5-5.2 3 sodium, serum 142 mmol/L [facility] [phone]/07/1 3 urea nitrogen/creatinine ratio, serum 15 [facility] [...] Estab. 3 platelet count 296 X10E3/UL [facility] [phone]/07/1 3 red blood cell distribution width 12.6 [...] Policy type / Coverage type Mer red green party ID [employer] PPO O [id number] ADVANCE DIRECTIVES Name Date DISCUSSED - NO [...] MD Cardiology Ralph Tovar MD Cardiology [facility]:This visi t has [...] (Metoprolol tartrate) Losartan 50 Mg Tablet (Losartan) [facility]: B P today: 131/79 P rior BP: 155/88 (08/02/2008) His updated medication list for this problem includes: Metoprolol Tartrate 25 Mg Tablet (Metoprolol tartrate) Losartan 50 Mg Tablet (Losartan) Orders: C omplete Echo (67874) C OMPREHENSIVE METABOLIC PANEL, W/EGFR (29093) C BC (INCLUDES DIFF/PLT) (6399) H EMOGLOBIN A1c (496) L IPID PANEL (7600) T SH, free T4, total T3 (7444) P ROBNP, N TERMINAL (82603) C RP, high sensitivity (35399) [facility] Cardiology: O rders: C omplete Echo (76707) C OMPREHENSIVE METABOLIC PANEL, W/EGFR (59403) C BC (INCLUDES DIFF/PLT) (6399) H EMOGLOBIN A1c (496) L IPID PANEL (7600) T SH, free T4, total T3 (7444) P ROBNP, N TERMINAL (39958) C RP, high sensitivity (83750) [facility] Cardiology: O rders: C omplete Echo (73234) C arotid Duplex Bilateral (CPT-70759) C OMPREHENSIVE METABOLIC PANEL, W/EGFR (45507) C BC (INCLUDES DIFF/PLT) (6399) H EMOGLOBIN A1c (496) L IPID PANEL (7600) T SH, free T4, total T3 (7444) P ROBNP, N TERMINAL (61368) C RP, high sensitivity (97311) [facility]: O rders: C omplete Echo (23277) C OMPREHENSIVE METABOLIC PANEL, W/EGFR (83768) C BC (INCLUDES DIFF/PLT) (6399) H EMOGLOBIN A1c (496) L IPID PANEL (7600) T SH, free T4, total T3 (7444) P ROBNP, N TERMINAL (88977) C RP, high sensitivity (04061) [facility]: O rders: S leep Study Home (CPT-59769) [facility] Doug[facility] office visit: [...]
--- NOTE | 2025-01-11 07:22 | WPDHPUPDATE1 ---
History and Physical Update Update Date/Time: 01/11/25 07:22 History and Physical has been reviewed, including an updated exam of the patient. There are NO changes in the patient's condition. Risks, benefits, and alternatives have been discussed and questions answered. Patient agrees to proceed with procedure.
[2025-01-11 09:13] LABS: Glucose Point of Care 112 mg/dl (65-105)
[2025-01-11] MEDS: LACTATED RINGERS 1,000 ML 30 ML IV CONT ×2 (09:30→13:15)
[2025-01-11] MEDS: ACETAMINOPHEN 500 MG TABLET 1000 MG PO (09:30)
[2025-01-11] MEDS: TRANEXAMIC ACID 1,000MG/ISO100 1,000 MG/100 ML BAG 200 MG IVPB (09:30)
--- NOTE | 2025-01-11 10:27 | WPDANESEPPF ---
Anes - Initial Pre Proc Eval Procedure: Operation Date: 01/11/25 10:30 Proposed Procedures p Right Total Knee Arthroplasty - Syed Ayers MD Date/Time: 01/11/25 10:27 Surgeon: Syed Ayers MD Pre Op Diagnosis: right knee djd Patient Data Age: 70 Gender: M Height: 1.73 m Weight: 114 kg Last Vital Signs Temp 97.5 F L 01/11/25 09:27 Pulse 64 01/11/25 09:27 Resp 16 12/28/24 10:25 BP 146/66 H 01/11/25 09:27 Pulse Ox 98 01/11/25 09:27 O2 Del Method Room Air 01/11/25 09:27 Allergies Allergy/AdvReac Type Severity Reaction Status Date / Time bupropion (From Wellbutrin) AdvReac Severe N/V, Verified 01/11/25 09:24 IRRITABILTY Home Medications ?Medication ?Instructions ?Recorded ?Confirmed ?Type ferrous sulfate 325 mg (65 mg 325 mg PO .COMPLEX 01/19/24 01/11/25 History iron) tablet (Feosol) pshupyzt-qcewmzjc-ecxyc acid 400 1 tablet PO DAILY 01/19/24 01/11/25 History mcg-vit K 20 mcg-lycop 300 mcg tablet (One-A-Day Men's Multivitamin) memantine 10 mg tablet See Rx Instructions .Route 07/07/24 01/11/25 Rx .COMPLEX #180 tabs blood-glucose meter (Accu-Chek #1 ea 07/13/24 01/03/25 Rx Guide Glucose Meter) lancets (Accu-Chek Softclix See Rx Instructions .Route 07/13/24 01/03/25 Rx Lancets) .COMPLEX #300 ea atorvastatin 40 mg tablet 40 mg PO QHS #90 tabs 07/19/24 01/11/25 Rx tamsulosin 0.4 mg capsule See Rx Instructions .Route 08/08/24 01/11/25 Rx .COMPLEX #90 caps blood sugar diagnostic (Accu-Chek #100 strips 08/27/24 01/03/25 Rx Guide test strips) aspirin 81 mg tablet,delayed 81 mg PO DAILY 10/19/24 01/11/25 History release (Adult Low Dose Aspirin) gabapentin 300 mg capsule 300 mg PO TID 10/19/24 01/11/25 History donepezil 5 mg tablet See Rx Instructions .Route 10/22/24 01/11/25 Rx .COMPLEX #90 tabs losartan 50 mg tablet See Rx Instructions .Route 12/01/24 01/11/25 Rx .COMPLEX #90 tabs metoprolol tartrate 25 mg tablet See Rx Instructions .Route 12/01/24 01/11/25 Rx .COMPLEX #180 tabs brexpiprazole 1 mg tablet (Rexulti) 1 mg PO HS 12/28/24 01/11/25 History calcium 600 mg (as carbonate)-vit 2 tablet PO HS 12/28/24 01/11/25 History D3 20 mcg (800 unit) chewable tablet (Caltrate plus D) fluoxetine 20 mg capsule 20 mg PO BID 12/28/24 01/11/25 History trazodone 50 mg tablet 50 mg PO HS 12/28/24 01/11/25 History chlorhexidine gluconate 4 % 1 applic topical DAILY #237 mL 12/31/24 01/11/25 Rx topical liquid (Hibiclens) metformin 500 mg tablet See Rx Instructions .Route 01/03/25 01/11/25 Rx .COMPLEX #180 tabs Laboratory Tests 01/11/25 01/11/25 09:06 09:08 POC Capillary Glucose 112 H mg/dl (65-105) Blood Type A Positive Antibody Screen Negative Patient hx anesthesia problems: none Family hx anesthesia problems: none Results Review: All pre-operative results and documents have been reviewed as part of the pre-operative evaluation. [facility] Past Medical History Medical History History of colonic polyps Right buttock pain Leg swelling Sinusitis Pharyngitis Type 2 diabetes mellitus without complication, without long-term current use of insulin Nocturia Mixed hyperlipidemia Essential (primary) hypertension Arthritis of knee Palpable mass of lower back Palpable mass Back pain Patellar bursitis of left knee Plantar fasciitis of left foot Pain of left heel Foot pain, left Borderline type 2 diabetes mellitus Hyperlipidemia Constipation by delayed colonic transit Elevated glucose Arthritis of both knees Excessive daytime sleepiness Anemia SOBOE (shortness of breath on exertion) Cough due to MARCELINO inhibitor Bronchitis HTN (hypertension) Elevated BP without diagnosis of hypertension Diabetes mellitus Opioid dependence MDD (major depressive disorder), recurrent episode, moderate Arthritis Chronic pain disorder Surgical History Surgical History H/O arthroscopic knee surgery Right S/P total knee arthroplasty left TKA Family History Family History Father Family history of cardiovascular disease, Onset Age: 77 Hypertension Depression Mother Depression Cancer Other Family history of liver disease Social History Social History Social History: caffeine uses Smoking packs per day: 1 Smoking cigarettes per day: 20.0 Years smoked: 10 Smoking pack-years: 10.00 Smoking status: Former smoker Tobacco type: cigarettes Second hand tobacco smoke exposure: No Smoking end date: 10/13/82 Alcohol intake: never Substance use: never Substance use type: does not use Do You Feel Safe in your Home?: Yes Lack of Transportation: No Lack of Food: Never True Current Housing: I Have Housing Concerned About Future Housing: No Difficulty Paying Gas/Electric Bills: No Difficulty Paying for Meds: No Currently Unemployed: No Education: High School Diploma/GED Difficulty w/ Childcare or Family Care: No Living arrangements: with family Additional living arrangements comments: Occupation/Education: retired Gender identity (if verbalized by the patient): Male Sexual Orientation (if Verbalized by the Patient): Straight or Heterosexual Spiritual care concerns: No Anes - Eval Final PreProcedure Day of Procedure 01/11/25 10:27 Patient weight: normal Lungs: normal air movement Airway: Mallampati scale class II and special considerations (Edentulous. ) Neurological: alert and oriented Last oral intake: >/= 8 hours ASA classification: III Emergent: no Anesthetic plan: proceed Anesthesia type and monitoring: general LMA and standard monitoring Results Review: All pre-operative results and documents have been reviewed as part of the pre-operative evaluation. HTN, hyperlipidemia, hx CVA w some memory deficits, DM, MITZY. Pt had stress test 2022 w nml LVEF 69%, nml perfusion. US not avail in preop area, discussed w pt and post op block in PACU once pt emerges due to lack of availability of US. Informed Consent: The patient's anesthetic plan and its attendant risks and benefits were discussed with the patient/family/POA. Questions were solicited and answers provided to the satisfaction of the patient/family/POA.
[2025-01-11] MEDS: ceFAZolin 2 GM/D5W 50 ML 2 GM/50 ML BAG IVPB ×2 (10:44→17:17)
[2025-01-11] MEDS: SODIUM CHLORIDE 0.9% IV 37.7 ML, MORPHINE SULFATE INJ (*CRX) 2 MG, ROPivacaine HCL 1% 2... INFILTRATE (12:22)
[2025-01-11] MEDS: TRANEXAMIC ACID 1,000 MG/10 ML AMPUL 1000 MG IV PUSH (12:24)
--- NOTE | 2025-01-11 13:10 | W.PM.PROC2 ---
Procedure Note - Detailed Date of Procedure 01/11/25 Pre-op Diagnosis right knee djd Post-op Diagnosis Same Procedure Performed R TKA Surgeon Syed Ayers MD Anesthesia General Description of Procedure THE RIGHT KNEE WAS PREPPED AND DRAPED IN THE STERILE FASHION. THERE WAS A 10 DEGREE FLEXION CONTRACTURE. A MIDLINE SKIN INCISION WAS MADE. A MEDIAL PARAPATELLAR ARTHROTOMY WAS MADE. THE PATELLA WAS EVERTED. THERE WAS TRICOMPARTMENT DJD. THERE WAS MINIMAL PATELLA DJD. AN INTRAMEDULLARY AZRA WAS PLACED IN THE FEMUR. A DISTAL FEMORAL CUT WAS MADE IN 5 DEGREES OF VALGUS REMOVING APPROXIMATELY 9 MM OF BONE FROM THE DISTAL FEMUR. THE FEMUR WAS SIZED TO 4. A 4 FEMORAL CUTTING BLOCK WAS PLACED IN 3 DEGREES OF EXTERNAL ROTATION AND IN ALIGNMENT WITH SHELLY'S LINE AND THE TRANSEPICONDYLAR AXIS. ANTERIOR POSTERIOR AND CHAMFER CUTS WERE MADE. THE CUTS WERE EXCELLENT. NEXT AN INTRAMEDULLARY CUTTING GUIDE WAS PLACED IN THE TIBIA. A TRANS TIBIAL CUT WAS MADE ALONG THE LONG AXIS OF THE TIBIA. APPROXIMATELY 8 MM OF BONE WAS REMOVED FROM THE HIGH SIDE OF THE TIBIA. THE TIBIA WAS THEN PLANED TO A SMOOTH SURFACE. POSTERIOR FEMORAL OSTEOPHYTES WERE REMOVED FROM THE FEMORAL CONDYLES. A 4 TIBIAL TRIAL WAS PLACED IN ALIGNMENT WITH THE 1/3 MEDIAL ASPECT OF THE TIBIAL TUBERCLE. THEN A 4 FEMORAL TRIAL COMPONENT WAS PLACED. BOTH HAD EXCELLENT FITS. EVENTUALLY AN 11 MM CS POLYETHYLENE TRIAL COMPONENT WAS PLACED. THE KNEE WAS TAKEN THROUGH A RANGE OF MOTION. THE KNEE CAME OUT TO FULL EXTENSION. THERE WAS NO ABNORMAL TILT TO THE PATELLA. THERE WAS GOOD A/P AND VARUS/VALGUS STABILITY. THERE WAS NO EXCESSIVE ROLL BACK WITH FLEXION. THE TRIAL COMPONENTS WERE REMOVED. THEN A ERUM 4 FEMORAL COMPONENT AND A 4 TIBIAL COMPONENT WITH AN 11 CS POLYETHYLENE COMPONENT WERE PRESS FIT INTO PLACE. THE COMPONENTS WERE FLUSH WITH THE BONE CUTS THE KNEE WAS TAKEN THROUGH A ROM AGAIN AND FOUND TO BE STABLE WITH NO PATELLA TILT NO EXCESSIVE ROLL BACK WITH FLEXION AND GOOD STABILITY WITH COMPLETE AND FULL EXTENSION. THE KNEE WAS IRRIGATED WITH STERILE BETADINE AND WATER FOR ABOUT 3 MINUTES. THE BLEEDERS WERE CAUTERIZED. THE ARTHROTOMY WAS REPAIRED WITH NUMBER 1 VICRYL. THE SUB CUTANEOUS LAYER WITH 2-0 VICRYL AND THE SKIN 3-0 STRATAFIX AND DERMABOND. THE WOUND WAS WASHED AND A STERILE DRESSING WAS APPLIED. PATIENT WAS EXTUBATED. Estimated Blood Loss 200 Pathology None sent Complications No immediate complications Condition Stable Disposition PACU
--- NOTE | 2025-01-11 13:53 | WPDANESPNB ---
Anes - Peripheral Nerve Block Date/Time: 01/11/25 13:53 I have discussed with the patient/family/POA the placement of a peripheral nerve block for post-operative pain management, including associated risks, benefits, complications, and side effects. Alternative methods of post-operative analgesia were detailed. Questions were solicited and answers provided to the satisfaction of the patient/family/POA. Time-Out: A pre-procedural Time-Out was completed immediately before starting the procedure and confirmed: Patient Identification, Site, Procedure, Patient Position and the Availability of Requisite Equipment. Clinical Indications: Acute post-operative pain management requested by the operative surgeon. Nerve Block Insertion Note Anes-nerve block: adductor canal right Patient position: supine Skin prep: chlorhexidine Needle: 22 gauge, stimulating, insulated echogenic needle. Needle length: 80 mm Technique: ultrasound Injectate: other (Bupiv 0.5% 15 mls. ) Observations: tolerated well Complications: none Procedure start time:: 1330 Procedure end time:: 1340
[2025-01-11 14:54] LABS: Glucose Point of Care 134 mg/dl (65-105)
--- NOTE | 2025-01-11 16:38 | ADMGEN ---
This patient, Rene Montes, was admitted to 3 [facility] Surg Room 302-01. Patient/family oriented to hospital policies and general routines including ID bracelet, bed and alarms, visiting hours, pain management, procedures, bathroom and other care routines, personal items, smoking policy, room service/diet, and visiting hours. Information on how to activate the Rapid Response Team has been discussed. Patient/Family are encouraged to report perceived risks to care and to ask questions if they do not understand what they are told or what they should do.
[2025-01-11] MEDS: FLUoxetine HCL 20 MG CAPSULE PO (17:15)
[2025-01-11] MEDS: GABAPENTIN 300 MG CAPSULE PO (17:15)
[2025-01-11] MEDS: metFORMIN HCL 500 MG TABLET BY MOUTH (17:16)
[2025-01-11] MEDS: KETOROLAC 15 MG/ML VIAL (*BKC) IV PUSH (17:16)
[2025-01-11] MEDS: SENNA/DOCUSATE SODIUM TABLET 2 TAB PO (17:18)
[2025-01-11] MEDS: MEMANTINE 10 MG TABLET BY MOUTH (20:05)
[2025-01-11] MEDS: ASPIRIN 81 MG ENTERIC TABLET PO (20:05)
[2025-01-11] MEDS: FAMOTIDINE 20 MG TABLET PO (20:05)
[2025-01-11] MEDS: METOPROLOL TARTRATE 25 MG TABLET BY MOUTH (20:06)
[2025-01-11] MEDS: DONEPEZIL HCL 5 MG TABLET BY MOUTH (20:06)
[2025-01-11] MEDS: traZODone HCL 50 MG TABLET PO (20:06)
[2025-01-11] MEDS: ATORVASTATIN 40 MG TABLET PO (20:06)
[2025-01-12] MEDS: KETOROLAC 15 MG/ML VIAL (*BKC) IV PUSH ×3 (00:15→11:22)
[2025-01-12 00:24] LABS: Glucose Point of Care 154 mg/dl (65-105)
[2025-01-12 00:25] VITALS: BP 132/65; PULSE 84; RESP 16; TEMP 37.1; O2SAT 94
[2025-01-12] MEDS: ceFAZolin 2 GM/D5W 50 ML 2 GM/50 ML BAG IVPB ×2 (02:44→10:01)
[2025-01-12 04:41] VITALS: BP 143/77; PULSE 72; RESP 12; TEMP 37.2; O2SAT 94
[2025-01-12 06:21] LABS: Basophils Percent Auto 0.1 % (0.2-1.2); Eosinophils Percent Auto 0.2 % (0-4.4); Hematocrit 37.6 % (42.0-52.0); Hemoglobin 12.3 g/dL (14.0-18.0); Immature Granulocyte Absolute 0.05 K/mm3 (0.00-0.031); Immature Granulocyte Percent A 0.3 % (0-0.5); Lymphocytes Absolute Auto 2.44 K/mm3 (0.9-3.2); Lymphocytes Percent Auto 16.4 % (18.3-44.2); Mean Corpuscular HGB Conc 32.7 g/dl (32-36); Mean Corpuscular Hemoglobin 30.7 pg (26-34); Mean Corpuscular Volume 93.8 fl (80-100); Mean Platelet Volume 10.7 fl (7.4-10.4); Monocytes Absolute Auto 1.6 K/mm3 (0.1-0.6); Monocytes Percent Auto 10.5 % (2.6-8.5); Neutrophils Absolute Auto 10.8 K/mm3 (1.3-6.7); Neutrophils Percent Auto 72.5 % (45.5-73.1); Platelet Count Result 200 k/mm3 (150-375); Red Blood Count 4.01 M/mm3 (4.6-6.20); Red Cell Distribution Width 13.2 % (11.5-14.5); White Blood Count 14.9 K/mm3 (4.5-10.0)
[2025-01-12 06:31] LABS: Anion Gap 8 mmol/L (4-12); Blood Urea Nitrogen 15 mg/dL (9-20); Calcium 8.9 mg/dL (8.4-10.2); Carbon Dioxide 24 mmol/L (22-30); Chloride 107 mmol/L (98-107); Estimated CRCL calculation 78 ml/min; Estimated Glomerular Filt Rate > 60; Glucose 102 mg/dL (65-110); Potassium 4.2 mmol/L (3.4-5.0); Sodium 139 mmol/L (137-145)
[2025-01-12] MEDS: oxyCODONE/ACETAMINOPHEN (*CRX) 5-325 MG TABLET 1 TABLET PO ×2 (08:31→11:21)
[2025-01-12] MEDS: TAMSULOSIN HCL 0.4 MG CAPSULE BY MOUTH (08:31)
[2025-01-12] MEDS: THERAPEUTIC MULTIVITAMINS/MINERALS TAB (*BKC) 1 TABLET PO (08:31)
[2025-01-12] MEDS: FLUoxetine HCL 20 MG CAPSULE PO (08:31)
[2025-01-12 08:33] VITALS: PULSE 72
[2025-01-12] MEDS: ASPIRIN 81 MG ENTERIC TABLET PO (08:33)
[2025-01-12] MEDS: LOSARTAN POTASSIUM 50 MG TABLET BY MOUTH (08:33)
[2025-01-12] MEDS: FAMOTIDINE 20 MG TABLET PO (08:33)
[2025-01-12] MEDS: METOPROLOL TARTRATE 25 MG TABLET BY MOUTH (08:33)
[2025-01-12] MEDS: metFORMIN HCL 500 MG TABLET BY MOUTH (08:33)
[2025-01-12] MEDS: MEMANTINE 10 MG TABLET BY MOUTH (08:33)
[2025-01-12] MEDS: GABAPENTIN 300 MG CAPSULE PO ×2 (08:34→13:06)
[2025-01-12] MEDS: polyethylene glycoL 3350 17 GM POWD.PACK PO (08:35)
[2025-01-12] MEDS: SENNA/DOCUSATE SODIUM TABLET 2 TAB PO (08:36)
[2025-01-12 08:41] VITALS: BP 137/83; PULSE 74; RESP 14; TEMP 36.3; O2SAT 95
[2025-01-12 12:41] VITALS: BP 120/60; PULSE 73; RESP 14; TEMP 36.5; O2SAT 94
--- NOTE | 2025-01-12 15:07 | PM.PNORT ---
Progress Note: A&P Assessment and Plan (1) S/P total knee arthroplasty: Code(s): Z96.659 - Presence of unspecified artificial knee joint Status: Acute Assessment and Plan: POD 1 DOING WELL. OK TO DC HOME F/U IN 3 WEEKS Subjective Subjective Date/Time Seen: 01/12/25 15:07 Interval history: POD 1 DOING WELL. NO CALF PAIN, GOOD PROGRESS WITH PT Exam Extrem: Other: VSS AFEBRILE DRESSING DRY NV INTACT NEG HOMANS SIGN, CALF SOFT NON TENDER, THIGH SOFT Objective Data Vital Signs Vital Signs: Vital Signs - 24 hr 01/11/25 15:41 01/11/25 16:41 01/11/25 18:44 Temperature 36.3 C L 36.3 C L Pulse Rate 89 91 Respiratory Rate 14 14 Blood Pressure 143/68 H 142/65 H Pulse Oximetry 98 97 Oxygen Delivery Room Air 01/11/25 20:41 01/12/25 00:25 01/12/25 04:41 Temperature 36.7 C 37.1 C 37.2 C Pulse Rate 93 84 72 Respiratory Rate 14 16 12 Blood Pressure 135/74 132/65 143/77 H Pulse Oximetry 93 94 94 Oxygen Delivery 01/12/25 08:33 01/12/25 08:41 01/12/25 09:28 Temperature 36.3 C L Pulse Rate 72 74 Respiratory Rate 14 Blood Pressure 137/83 Pulse Oximetry 95 Oxygen Delivery Room Air Intake/Output Intake/Output: Intake & Output 01/09/25 01/10/25 01/11/25 01/12/25 23:59 23:59 23:59 23:59 Intake Total 690 1126 Output Total 500 1000 Balance 190 126 Meds/Results Medications: Active Medications Generic Name Dose Route Start Last Admin Trade Name Freq PRN Reason Stop Dose Admin Acetaminophen 500 mg 01/11/25 14:56 Acetaminophen 500 Mg Tablet PO Q6H PRN Pain Rated 1-3 Aspirin 81 mg 01/11/25 21:00 01/12/25 08:33 Aspirin 81 Mg Enteric Tablet PO 81 mg Q12HR ROBERTO Administration Atorvastatin Calcium 40 mg 01/11/25 21:00 01/11/25 20:06 Atorvastatin 40 Mg Tablet PO 40 mg QHS ROBERTO Administration Diazepam 5 mg 01/11/25 14:56 Diazepam (*Crx) 5 Mg Tablet PO Q8H PRN Spasms Diphenhydramine HCl 25 mg 01/11/25 14:56 Diphenhydramine Hcl Inj 50 Mg/Ml Vial IV PUSH Q6H PRN Itching Donepezil HCl 5 mg 01/11/25 21:00 01/11/25 20:06 Donepezil Hcl 5 Mg Tablet BY MOUTH 5 mg QHS ROBERTO Administration Famotidine 20 mg 01/11/25 21:00 01/12/25 08:33 Famotidine 20 Mg Tablet PO 20 mg Q12HR ROBERTO Administration Fluoxetine HCl 20 mg 01/11/25 17:00 01/12/25 08:31 Fluoxetine Hcl 20 Mg Capsule PO 20 mg BID ROBERTO Administration Gabapentin 300 mg 01/11/25 14:56 01/12/25 13:06 Gabapentin 300 Mg Capsule PO 300 mg TID ROBERTO Administration Hydromorphone HCl 1 mg 01/11/25 14:56 Hydromorphone Hcl Inj (*Crx) 1 Mg/Ml Syr IV PUSH Q2H PRN Breakthrough Pain Rated 7-10 or NPO Hydromorphone HCl 0.5 mg 01/11/25 14:56 Hydromorphone Hcl Inj (*Crx) 1 Mg/Ml Syr IV PUSH Q2H PRN Breakthrough Pain Rated 4-6 or NPO Ibuprofen 800 mg in 200 mls @ 400 mls/hr 01/11/25 14:56 Caldolor 800 Mg/200 Ml IVPB Q6H PRN Breakthrough Pain Rated 1-3 or NPO Ketorolac Tromethamine 15 mg 01/11/25 17:00 01/12/25 11:22 Ketorolac 15 Mg/Ml Vial (*Bkc) IV PUSH 01/12/25 18:01 15 mg Q6HR ROBERTO Administration Losartan Potassium 50 mg 01/12/25 09:00 01/12/25 08:33 Losartan Potassium 50 Mg Tablet BY MOUTH 50 mg QAM ROBERTO Administration Memantine 10 mg 01/11/25 21:00 01/12/25 08:33 Memantine 10 Mg Tablet BY MOUTH 10 mg Q12HR ROBERTO Administration Metformin HCl 500 mg 01/11/25 17:00 01/12/25 08:33 Metformin Hcl 500 Mg Tablet BY MOUTH 500 mg BIDWM ROBERTO Administration Metoprolol Tartrate 25 mg 01/11/25 21:00 01/12/25 08:33 Metoprolol Tartrate 25 Mg Tablet BY MOUTH 25 mg Q12HR ROBERTO Administration Miscellaneous Information 1 each 01/11/25 00:01 01/12/25 00:18 Brexpiprazole [Rexulti] 1 Mg Tablet Is Nonformulary, Can Patient Bring From Home? XX 02/10/25 00:00 Not Given CLARIFY ROBERTO Multivitamins/Calcium 1 tablet 01/12/25 09:00 01/12/25 08:31 Therapeutic Multivitamins/Minerals Tab (*Bkc) PO 1 tablet DAILY ROBERTO Administration Naloxone HCl 0.1 mg 01/11/25 14:56 Naloxone Hcl 0.4 Mg/Ml Vial IV PUSH Q2M PRN Opiate Reversal Non-Formulary Medication 1 mg 01/11/25 21:00 Brexpiprazole [Rexulti] PO 02/10/25 20:59 HS ROBERTO Ondansetron HCl 4 mg 01/11/25 14:56 Ondansetron Inj 4 Mg/2 Ml Vial IV PUSH Q4H PRN Nausea And Vomiting Oxycodone/Acetaminophen 1 tablet 01/11/25 14:56 01/12/25 11:21 Oxycodone/Acetaminophen (*Crx) 5-325 Mg Tablet PO 1 tablet Q4H PRN Administration Pain Rated 4-6 Oxycodone/Acetaminophen 1 tab 01/11/25 14:56 Oxycodone/Acetaminophen (*Crx) 10-325 Mg Tablet PO Q6H PRN Pain Rated 7-10 Polyethylene Glycol 17 gm 01/12/25 09:00 01/12/25 08:35 Polyethylene Glycol 3350 17 Gm Powd.Pack PO 17 gm QAM ROBERTO Administration Senna/Docusate Sodium 2 tab 01/11/25 17:00 01/12/25 08:36 Senna/Docusate Sodium Tablet PO 2 tab BID ROBERTO Administration Tamsulosin HCl 0.4 mg 01/12/25 09:00 01/12/25 08:31 Tamsulosin Hcl 0.4 Mg Capsule BY MOUTH 0.4 mg DAILY ROBERTO Administration Trazodone HCl 50 mg 01/11/25 21:00 01/11/25 20:06 Trazodone Hcl 50 Mg Tablet PO 50 mg HS ROBERTO Administration Radiology Results: ITS Impressions Knee X-Ray 01/11/25 13:52 Impression: Status post total knee replacement, without evidence of hardware complication. Labs Labs: Laboratory Results - last 24 hr 01/12/25 01/12/25 00:21 05:35 WBC 14.9 H RBC 4.01 L Hgb 12.3 L Hct 37.6 L MCV 93.8 MCH 30.7 MCHC 32.7 RDW 13.2 Plt Count 200 MPV 10.7 H Immature Gran % (Auto) 0.3 Neut % (Auto) 72.5 Lymph % (Auto) 16.4 L Hockley % (Auto) 10.5 H Eos % (Auto) 0.2 Baso % (Auto) 0.1 L Lymph # (Auto) 2.44 Hockley # (Auto) 1.6 H Eos # (Auto) 0.0 Baso # (Auto) 0.0 Abs Immat Gran (auto) 0.05 H Absolute Neuts (auto) 10.8 H Absolute Nucleated RBC 0.000 Nucleated RBC % 0.0 Sodium 139 Potassium 4.2 Chloride 107 Carbon Dioxide 24 Anion Gap 8 BUN 15 Creatinine 0.94 Estim Creat Clear Calc 78 Estimated GFR > 60 Glucose 102 POC Capillary Glucose 154 H Calcium 8.9
[2025-01-12] MEDS: oxyCODONE/ACETAMINOPHEN (*CRX) 10-325 MG TABLET 1 TAB PO (15:54)
== END 2025-01-12 16:05 | disposition home health service (06) ==
LOC: ANHSURGERY 08:13 → ANH3MEDSUR 14:57
PROVIDERS: PCP Family Medicine; Visit Provider Orthopaedic Surgery
PROC: (CPT 27447; principal; 2025-01-11 10:30)
DX: M17.11 Unilateral primary osteoarthritis, right knee (principal); M25.761 Osteophyte, right knee; G89.18 Other acute postprocedural pain; E11.9 Type 2 diabetes mellitus without complications; E78.2 Mixed hyperlipidemia; I10 Essential (primary) hypertension; D64.9 Anemia, unspecified; G47.33 Obstructive sleep apnea (adult) (pediatric); F32.9 Major depressive disorder, single episode, unspecified; G89.29 Other chronic pain; F11.20 Opioid dependence, uncomplicated; Z79.82 Long term (current) use of aspirin; Z79.84 Long term (current) use of oral hypoglycemic drugs; Z98.890 Other specified postprocedural states; Z96.652 Presence of left artificial knee joint; Z86.0100 Personal history of colon polyps, unspecified; Z87.891 Personal history of nicotine dependence; Z86.79 Personal history of other diseases of the circulatory system; Z80.9 Family history of malignant neoplasm, unspecified; Z82.49 Family history of ischemic heart disease and other diseases of the circulatory system
CPT/HCPCS: 64447; 27447; 36415; 73560; 80048; 82948; 85025; 86850; 86900; 86901; 97110; 97161; 97165; 97530; A9270; C1776; J0171; J0690; J1100; J1885; J2003; J2250; J2270; J2405; J2704; J2795; J3010; J7120

== ENCOUNTER 2025-02-13 11:09 | Emergency (ER) | payer MEDICARE, SELFPAY ==
--- NOTE | ~2025-02-13 | XR_ITS ---
XR knee RT 3V Ordering provider: Sean Berry MD History: . fall replacement 01/11/25 at [place] . Comparison: None. FINDINGS: BONES: Bony fragments are seen anterior to the femoral prosthesis in the lateral view. No dislocation . JOINT SPACES: Total knee arthroplasty. SOFT TISSUES: Soft tissue swelling is seen anteriorly IMPRESSION: Small bony fragments are seen inferior to the patella. Clinical correlation advised. Total knee arthroplasty Reviewed, dictated and finalized at location A. IMPRESSION: Small bony fragments are seen inferior to the patella. Clinical correlation adv ised. Total knee arthroplasty
[2025-02-13 11:11] VITALS: BP 164/71; PULSE 73; RESP 17; TEMP 36.4; O2SAT 100
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
--- OUTSIDE RECORDS SUMMARY | 2025-02-13 11:12 | XMS_ITS | CONTINUITY OF CARE DOCUMENT ---
Author Name onofre, onofre Address Unknown Organization [facility] Address [address] [address] [place] [address] Phone [phone] Care Team Providers Care Port Traffic Manager Name Role Phone Guy PETERSON, Ralph Unavailable BALWINDER PETERSON, ALFRED Unavailable GAY PETERSON, LAURA Unavailable PROBLEMS Condition Status [...] In-person encounter Office Visit Ralph Tovar MD [place] [facility] Dyspnea on exertion--echo ef nl, 04/2024 , stress nuc nl, 10/2024Sleep apnea, on cpap - In-person encounter Office Visit Ralph Tovar MD [place] [facility] Dyspnea on exertion--echo ef nl, 04/2024 , stress nuc nl, 10/2024Sleep apnea, on cpapCarotid arterial disease, 50-69% RAZ 04/2024 - In-person encounter Office Visit Ralph Tovar MD [place] [facility] CHEST PAIN,-07/20 NUC EF 58PALPITATIONS BIGEMINY, TRIGEMINYHypertensionPrediabetesDyspnea on exertion--echo ef nl, 04/2024, stress nuc nl, VASleep apnea, on cpapCarotid arterial disease, 50-69% RAZ 04/2024 - In-person encounter Office Visit Ralph Tovar MD [place] [facility] CHEST PAIN,-07/20 NUC EF 58 VITAL [...] mm[Hg] Jar ret pulse rate 66 /min [facility] blood pressure, cuff size regular Ja rr oxygen saturation, oximetry 97 % [facility] respiratory rate E&M 16 /min [facility] weight E&M 232 [lb_av] [facility] y height E&M 71 [in_i] Hill y [...] 0-149 3 cholesterol, serum 126 mg/dL [employer] [phone]/07/1 3 alanine aminotransferase (SGPT), serum 52 1/L [...] 3.5-5.2 3 sodium, serum 142 mmol/L [employer] [phone]/07/1 3 urea nitrogen/creatinine ratio, serum 15 [employer] [...] Estab. 3 platelet count 296 X10E3/UL [facility] [phone]/07/1 3 red blood cell distribution width 12.6 [...] Policy type / Coverage type Mer red republican ID [employer] PPO O [id number] ADVANCE DIRECTIVES Name Date DISCUSSED - NO [...] (Metoprolol tartrate) Losartan 50 Mg Tablet (Losartan) [facility]: B P today: 131/79 P rior BP: 155/88 (08/02/2008) His updated medication list for this problem includes: Metoprolol Tartrate 25 Mg Tablet (Metoprolol tartrate) Losartan 50 Mg Tablet (Losartan) Orders: C omplete Echo (43570) C OMPREHENSIVE METABOLIC PANEL, W/EGFR (32535) C BC (INCLUDES DIFF/PLT) (6399) H EMOGLOBIN A1c (496) L IPID PANEL (7600) T SH, free T4, total T3 (7444) P ROBNP, N TERMINAL (32288) C RP, high sensitivity (81504) [facility]: O rders: C omplete Echo (98213) C OMPREHENSIVE METABOLIC PANEL, W/EGFR (36554) C BC (INCLUDES DIFF/PLT) (6399) H EMOGLOBIN A1c (496) L IPID PANEL (7600) T SH, free T4, total T3 (7444) P ROBNP, N TERMINAL (35132) C RP, high sensitivity (91515) [facility]: O rders: C omplete Echo (68592) C arotid Duplex Bilateral (CPT-79573) C OMPREHENSIVE METABOLIC PANEL, W/EGFR (67490) C BC (INCLUDES DIFF/PLT) (6399) H EMOGLOBIN A1c (496) L IPID PANEL (7600) T SH, free T4, total T3 (7444) P ROBNP, N TERMINAL (37180) C RP, high sensitivity (36957) [facility]: O rders: C omplete Echo (54241) C OMPREHENSIVE METABOLIC PANEL, W/EGFR (46046) C BC (INCLUDES DIFF/PLT) (6399) H EMOGLOBIN A1c (496) L IPID PANEL (7600) T SH, free T4, total T3 (7444) P ROBNP, N TERMINAL (45546) C RP, high sensitivity (39770) [facility]: O rders: S leep Study Home (CPT-63903) [facility] Dougrio Luciano office visit: [...]
--- OUTSIDE RECORDS SUMMARY | 2025-02-13 11:13 | XMS_ITS | Patient Health Record ---
Author Organization [facility] Address [address] [place] [address] Care Team Providers Care Trust Vault Custodian Name Role Phone Robb Sepulveda MD Primary Care Provider Unavaila Torrie Champion Unavailable [phone] Migration, Provider Unavailable Unavailable Allergies No Known Allergies Reason For Referral No Information Medications Medication SIG (Take, Route, Frequency, Duration) Notes Start Date End Date Status Atorvastatin Calcium 80 MG Oral 04/24/2023 Unknown traZODone HCl 50 MG 1 tablet at bedtime Oral Once a day for 90 days Active Memantine HCl 10 MG Oral 04/24/2023 Active FLUoxetine HCl 20 MG 2 capsule Oral Once a day for 90 days Active Metoprolol Tartrate 25 MG Oral 04/24/2023 Unknown Tamsulosin HCl 0.4 MG Oral 04/24/2023 Unknown Rexulti 1 MG 1 tablet Orally Once a day for 30 days Active Losartan Potassium 50 MG Oral [...] Risk Notes Problem Chronic alcoholism in remission (652272694) Alcohol dependence, in remission (F10.21) Active confirmed Problem Severe recurrent major depression without psychotic features (07897359) Major depressive disorder, recurrent severe without psychotic features (F33.2) Active confirmed Problem Generalized anxiety disorder (76121780) Generalized anxiety disorder (F41.1) Active confirmed Problem Mild neurocognitive disorder (350097939) Mild neurocognitive disorder (G31.84) Active confirmed Vital Signs Heart Rate 66 /min 01/05/2025 Height-cm 177.80 cm 01/05/2025 Blood pressure diastolic 86 mm Hg 01/05/2025 Weight-kg 115.21 kg 01/05/2025 Height 70.00 in 01/05/2025 Blood pressure systolic 138 mm Hg 01/05/2025 Weight 254 lbs 01/05/2025 BMI 36.44 kg/m2 01/05/2025 Encounters Encounter Location Date Provider Diagnosis [facility] [address] [facility] [address] [place] [address] 05/11/2024 Torrie Nata Major depressive disorder, recurrent severe without psychotic features F33.2 ; Generalized anxiety disorder F41.1 and Alcohol dependence, in remission F10.21 [facility] [address] [facility] [address] [place] [address] 06/11/2024 Torrie Nata Major depressive disorder, recurrent severe without psychotic features F33.2 ; Generalized anxiety disorder F41.1 and Alcohol dependence, in remission F10.21 [facility] [address] [facility] [address] [place] [address] 07/09/2024 Torrie Nata Major depressive disorder, recurrent severe without psychotic features F33.2 ; Generalized anxiety disorder F41.1 and Alcohol dependence, in remission F10.21 [facility] [address] [place] [address] 08/06/2024 Torrie Nata [facility] [address] [place] [address] 08/10/2024 Torrie Nata Major depressive disorder, recurrent severe without psychotic features F33.2 ; Generalized anxiety disorder F41.1 ; Alcohol dependence, in remission F10.21 and Mild neurocognitive disorder G31.84 [facility] [address] [place] [address] 09/24/2024 Torrie Nata Major depressive disorder, recurrent severe without psychotic features F33.2 ; Generalized anxiety disorder F41.1 ; Alcohol dependence, in remission F10.21 and Mild neurocognitive disorder G31.84 [facility], [facility] [address] [place] [address] 11/05/2024 Torrie Nata Major depressive disorder, recurrent severe without psychotic features F33.2 ; Generalized anxiety disorder F41.1 ; Alcohol dependence, in remission F10.21 and Mild neurocognitive disorder G31.84 [facility], [facility] [address] [place] [address] 12/15/2024 Torrie Nata Major depressive disorder, recurrent severe without psychotic features F33.2 ; Generalized anxiety disorder F41.1 ; Alcohol dependence, in remission F10.21 and Mild neurocognitive disorder G31.84 [facility], [facility] [address] [place] [address] 01/05/2025 Torrie Nata Generalized anxiety disorder F41.1 ; Alcohol dependence, in remission F10.21 ; Major depressive disorder, recurrent severe without psychotic features F33.2 ; Mild neurocognitive disorder G31.84 ; Encounter for screening for depression Z13.31 and Encounter for screening for cardiovascular disorders Z13.6 [facility], [facility] [address] [place] [address] 02/28/2024 Provider Migration [facility], [facility] [address] [place] [address] 02/29/2024 Provider Migration [facility], [facility] [address] [place] [address] 05/24/2024 Torrie Nata Major depressive disorder, recurrent severe without psychotic features F33.2 [facility], [facility] [address] [place] [address] 11/05/2024 Torrie Peace [facility], [facility] [address] [place] [address] 05/10/2024 Torrie Peace [facility], [facility] [address] [place] [address] 05/18/2024 Torrie Nata Major depressive disorder, recurrent severe without psychotic features F33.2 [facility], [facility] [address] [facility] [address] [place] [address] 09/24/2024 Torrie Nata [facility], [place] [address] [facility] [address] [place] [address] 12/07/2024 Torrie Nata [facility], [place] [address] [facility] [address] [place] [address] 12/13/2024 Torrie Peace [facility], [facility] [address] [facility] [address] [place] [address] 12/13/2024 Torrie [facility], [place] [address] [facility] [address] [place] [address] 12/15/2024 Torrie Nata [facility], [place] [address] [facility] [address] [place] [address] 12/15/2024 Torrie Nata [facility], [place] [address] [address] 02/03/2025 Torrie Peace Major depressive disorder, recurrent severe without psychotic features F33.2 [facility], [address] [address] 02/03/2025 Torrie Nata Major depressive disorder, recurrent severe without psychotic features F33.2 Assessments Encounter Date Diagnosis (ICD Code) Assessment Notes Treatment Notes Treatment Clinical Notes Section Notes 05/11/2024 Major depressive disorder, recurrent severe without psychotic features (ICD-10 - F33.2) FLUOXETINE 80MG DAILY PER PCP 05/11/2024 Generalized anxiety disorder (ICD-10 - F41.1) 05/18/2024 Major depressive disorder, recurrent severe without psychotic features (ICD-10 - F33.2) 06/11/2024 Major depressive disorder, recurrent severe without psychotic features (ICD-10 - F33.2) 07/09/2024 Major depressive disorder, recurrent severe without [...] can order medication once approval received. 01/05/2025 Generalized anxiety disorder (ICD-10 - F41.1) 02/03/2025 Major depressive disorder, recurrent severe without psychotic features (ICD-10 - F33.2) 02/03/2025 Major depressive disorder, recurrent severe without psychotic features (ICD-10 - F33.2) 01/05/2025 Alcohol dependence, in remission (ICD-10 - F10.21) 12/15/2024 Generalized anxiety disorder (ICD-10 - F41.1) 11/05/2024 Generalized anxiety disorder (ICD-10 - F41.1) 09/24/2024 Generalized anxiety disorder (ICD-10 - F41.1) 08/10/2024 Generalized anxiety disorder (ICD-10 - F41.1) 07/09/2024 Generalized anxiety disorder (ICD-10 - F41.1) 06/11/2024 Generalized anxiety disorder (ICD-10 - F41.1) 05/11/2024 Alcohol dependence, in remission (ICD-10 - F10.21) 05/24/2024 Major depressive disorder, recurrent severe without psychotic features (ICD-10 - F33.2) Electronic Prior Authorization was requested for ARIPiprazole 2 MG Tablet. Provider can order medication once approval received. 06/11/2024 Alcohol dependence, in remission (ICD-10 - [...] G31.84) Memantine 10mg BID per PCP 09/24/2024 Mild neurocognitive disorder (ICD-10 - G31.84) [...] therapeutic effects of psychotropic medications. -Crisis prevention [facility] 988. 12/15/2024 Other Continue off of Wellbutrin. [...] therapeutic effects of psychotropic medications. -Crisis prevention [facility] 988. 01/05/2025 Other Stable, cont current medications [...] therapeutic effects of psychotropic medications. -Crisis prevention [facility] 98. Plan Of Treatment Next Appt Details Provider Name:Torrie Peace, 03/16/2025 08:00:00 AM, [facility] [facility] [address] [facility] [address], [place], [address], Insurance Providers Payer Name Payer Address Payer Phone Subscriber Number Group Number Insured Name Patient Relationship to Insured Coverage Start Date Coverage End Date [employer] Medicare Replacemen t/Advantag e - Ppo [address] [address] [place] [address] 1 [id number] RILEY GONZALEZ Self - patient is the insured Medical (General) History Medical History History ICD Code Problems: Chronic alcoholism in remiss n Generalized anxiety disorder Moderately severe recurrent major depres adrian Severe recurrent major depression withou t psychotic features ,
[2025-02-13 11:36] LABS: Add Urine Microscopic? NO; Appearance Urine Clear (Clear); Bilirubin Urine Negative (Negative); Blood Urine Negative (Negative); Color Urine Yellow (Yellow); Glucose Urine UA Negative (Negative); Ketones Urine Negative (Negative); Leukocyte Esterase Ur Negative LEU/UL (Negative); Nitrate Urine Negative (Negative); Protein Urine Negative (Negative); pH Urine 5.5 (5.0-9.0)
--- NOTE | 2025-02-13 11:53 | ED_ITS ---
HPI - Fall General Chief Complaint: Fall Stated Complaint: glf fall today, RIGHT knee replacement 01/11 Time Seen by Provider: 02/13/25 11:39 Source: patient and family History of Present Illness HPI Narrative: Patient is status post right knee total replacement January 11, wearing the shoes for the 1st time after the surgery, lost balance and landed on the right knee. No other injuries. Came to the ED by ambulance. Related Data Home Medications ?Medication ?Instructions ?Recorded ?Confirmed ?Last Taken ?Type feohmtvo-bdepdjjs-pvoln acid 400 1 tablet PO DAILY 01/19/24 02/08/25 01/08/25 History mcg-vit K 20 mcg-lycop 300 mcg tablet (One-A-Day Men's Multivitamin) gabapentin 300 mg capsule 300 mg PO TID 10/19/24 02/08/25 01/10/25 History brexpiprazole 1 mg tablet (Rexulti) 1 mg PO HS 12/28/24 02/08/25 01/10/25 History calcium 600 mg (as carbonate)-vit 2 tablet PO HS 12/28/24 02/08/25 01/08/25 History D3 20 mcg (800 unit) chewable tablet (Caltrate plus D) fluoxetine 20 mg capsule 20 mg PO BID 12/28/24 02/08/25 01/10/25 History trazodone 50 mg tablet 50 mg PO HS 12/28/24 02/08/25 01/10/25 History Allergies Allergy/AdvReac Type Severity Reaction Status Date / Time bupropion (From Wellbutrin) AdvReac Severe N/V, Verified 02/13/25 11:11 IRRITABILTY Review of Systems Review of Systems: All systems reviewed & are unremarkable except as noted in HPI and below PMFSH Past Medical History Medical History History of colonic polyps Right buttock pain Leg swelling Sinusitis Pharyngitis Type 2 diabetes mellitus without complication, without long-term current use of insulin Nocturia Mixed hyperlipidemia Essential (primary) hypertension Arthritis of knee Palpable mass of lower back Palpable mass Back pain Patellar bursitis of left knee Plantar fasciitis of left foot Pain of left heel Foot pain, left Borderline type 2 diabetes mellitus Hyperlipidemia Constipation by delayed colonic transit Elevated glucose Arthritis of both knees Excessive daytime sleepiness Anemia SOBOE (shortness of breath on exertion) Cough due to MARCELINO inhibitor Bronchitis HTN (hypertension) Elevated BP without diagnosis of hypertension Diabetes mellitus Opioid dependence MDD (major depressive disorder), recurrent episode, moderate Arthritis Chronic pain disorder Surgical History Surgical History H/O arthroscopic knee surgery Right S/P total knee arthroplasty Family History Family History Father Family history of cardiovascular disease, Onset Age: 77 Hypertension Depression Mother Depression Cancer Other Family history of liver disease Social History Social History Social History: caffeine uses Smoking packs per day: 1 Smoking cigarettes per day: 20.0 Years smoked: 10 Smoking pack-years: 10.00 Smoking status: Former smoker Tobacco type: cigarettes Second hand tobacco smoke exposure: No Alcohol intake: never Substance use: never Substance use type: does not use Do You Feel Safe in your Home?: Yes Lack of Transportation: No Lack of Food: Never True Current Housing: I Have Housing Concerned About Future Housing: No Difficulty Paying Gas/Electric Bills: No Difficulty Paying for Meds: No Currently Unemployed: No Education: High School Diploma/GED Difficulty w/ Childcare or Family Care: No Living arrangements: with family Additional living arrangements comments: Occupation/Education: retired Gender identity (if verbalized by the patient): Male Sexual Orientation (if Verbalized by the Patient): Straight or Heterosexual Spiritual care concerns: No Exam Narrative: General appearance: Well-developed, well-nourished Skin: Normal color Head: Normocephalic, nontraumatic Eyes: Clear conjunctiva ENT: Oropharynx normal, ears normal, nose normal Neck: Supple, nontender Chest and respiratory: Airway patent, no respiratory distress, no accessory muscle use Heart: Regular rate/rhythm Abdomen: Soft, nontender, no organomegaly, quiet bowel sounds Vascular: Normal peripheral pulses, normal capillary refill. Musculoskeletal: Right knee exam showing a surgical scar, slightly diffusely warm, slightly swollen, according to the patient nothing different than before. Limited range of motion because of pain Neurologic: Alert and oriented ?3, FINAL RAIL CUTTER is normal as tested, no gross motor deficit Course Consultations Consultation #1: DR MUSA KNEE IMMOBILIZER, OUTPATIENT FOLLOW-UP Date: 02/13/25 Time: 13:24 Vital Signs Vital signs: Vital Signs Temperature 36.4 C 02/13/25 11:11 Pulse Rate 73 02/13/25 11:11 Respiratory Rate 17 02/13/25 11:11 Blood Pressure 164/71 H 02/13/25 11:11 Pulse Oximetry 100 02/13/25 11:11 Oxygen Delivery Room Air 02/13/25 11:11 Temperature 36.4 C 02/13/25 11:11 Pulse Rate 73 02/13/25 11:11 Respiratory Rate 17 02/13/25 11:11 Blood Pressure 164/71 H 02/13/25 11:11 Pulse Oximetry 100 02/13/25 11:11 Oxygen Delivery Room Air 02/13/25 11:11 MDM - Fall MDM Narrative Medical decision making narrative: Differential diagnosis contusion versus fracture X-ray of the right knee showed Lab Data Labs: Lab Results 02/13/25 Range/Units 11:29 Urine Color Yellow (Yellow) Urine Appearance Clear (Clear) Urine pH 5.5 (5.0-9.0) Ur Specific [place] 1.020 (1.001-1.035) Urine Protein Negative (Negative) mg/dL Urine Glucose (UA) Negative (Negative) mg/dL Urine Ketones Negative (Negative) mg/dL Ur Blood (Man) Negative (Negative) Urine Nitrate Negative (Negative) Urine Bilirubin Negative (Negative) Urine Urobilinogen 1.0 (<2.0) mg/dL Leukocyte Esterase Rfl Negative (Negative) RAFAL/UL Imaging Data Radiologist's impression: Impressions Knee X-Ray 02/13/25 12:14 IMPRESSION: Small bony fragments are seen inferior to the patella. Clinical correlation advised. Total knee arthroplasty Critical Care Time Critical Care Time Critical Care Time: No Discharge Plan Discharge Clinical Impression: Contusion of knee, right Patient Disposition: Home Condition: Stable Instructions: Knee Pain (ED) Additional Instructions: Return if symptoms are worsening , call your family physician for appointment, take Tylenol as as needed for aches and pain, continue home medications. Patient Language: Citizen Of [place] Prescriptions: No Action One-A-Day Men's Multivitamin 400-20-300 mcg tablet 1 tablet PO DAILY gabapentin 300 mg capsule 300 mg PO TID Rexulti 1 mg tablet 1 mg PO HS trazodone 50 mg tablet 50 mg PO HS fluoxetine 20 mg capsule 20 mg PO BID Caltrate 600 plus D 600 mg-20 mcg (800 unit) tablet,chewable 2 tablet PO HS aspirin 81 mg Tablet,Delayed Release (Dr/Ec) 81 mg PO Q12HR 28 Days Qty: 56 0RF memantine 10 mg tablet See Rx Instructions .ROUTE .COMPLEX Qty: 180 3RF Dose Instruction: TAKE 1 TABLET TWICE DAILY Rx Instructions: TAKE 1 TABLET TWICE DAILY (DME) blood-glucose meter [Accu-Chek Guide Glucose Meter] Misc See Rx Instructions .Route Qty: 1 3RF Rx Instructions: As directed lancets [Accu-Chek Softclix Lancets] Misc See Rx Instructions .ROUTE .COMPLEX Qty: 300 3RF Dose Instruction: CHECK BLOOD GLUCOSE TWO TO THREE TIMES DAILY NEEDED DIRECTED Rx Instructions: CHECK BLOOD GLUCOSE TWO TO THREE TIMES DAILY NEEDED DIRECTED atorvastatin 40 mg tablet 40 mg PO QHS Qty: 90 3RF tamsulosin 0.4 mg capsule See Rx Instructions .ROUTE .COMPLEX Qty: 90 3RF Dose Instruction: TAKE 1 CAPSULE EVERY DAY Rx Instructions: TAKE 1 CAPSULE EVERY DAY (DME) Accu-Chek Guide test strips Strip See Rx Instructions .ROUTE .COMPLEX Qty: 100 3RF Dose Instruction: TEST BLOOD SUGAR 1 TIME DAILY DIRECTED Rx Instructions: TEST BLOOD SUGAR 1 TIME DAILY DIRECTED donepezil 5 mg tablet See Rx Instructions .ROUTE .COMPLEX Qty: 90 3RF Dose Instruction: TAKE 1 TABLET AT BEDTIME Rx Instructions: TAKE 1 TABLET AT BEDTIME losartan 50 mg tablet See Rx Instructions .ROUTE .COMPLEX Qty: 90 3RF Dose Instruction: TAKE 1 TABLET EVERY DAY Patient Comments: QAM Rx Instructions: TAKE 1 TABLET EVERY DAY metoprolol tartrate 25 mg tablet See Rx Instructions .ROUTE .COMPLEX Qty: 180 3RF Dose Instruction: TAKE 1 TABLET TWICE DAILY Rx Instructions: TAKE 1 TABLET TWICE DAILY metformin 500 mg tablet See Rx Instructions .ROUTE .COMPLEX Qty: 180 2RF Dose Instruction: TAKE 1 TABLET TWICE DAILY Rx Instructions: TAKE 1 TABLET TWICE DAILY oxycodone-acetaminophen 5-325 mg tablet 1 tablet PO Q8H PRN (Reason: pain) Qty: 30 0RF Follow-up/Referrals: Robb Sepulveda MD [Primary Care Provider] - Syed Ayers MD [Physician] - 02/14/25
--- OUTSIDE RECORDS SUMMARY | 2025-02-13 11:57 | XMS_ITS | CONTINUITY OF CARE DOCUMENT ---
Author Name onofre, onofre Address Unknown Organization [facility] Address [address] [address] [place] [address] Phone [phone] Care Team Providers Care Mineral Mixer Name Role Phone Guy PETERSON, Ralph Unavailable BALWINDER PETERSON, ALFRED Unavailable GAY PETERSON, LAURA Unavailable [phone] PROBLEMS Condition Status Date Provider Notes [...] In-person encounter Office Visit Ralph Tovar MD [facility] Dyspnea on exertion--echo ef nl, 04/2024 , stress nuc nl, 10/2024Sleep apnea, on cpap - In-person encounter Office Visit Ralph Tovar MD [facility] Dyspnea on exertion--echo ef nl, 04/2024 , stress nuc nl, 10/2024Sleep apnea, on cpapCarotid arterial disease, 50-69% RAZ 04/2024 - In-person encounter Office Visit Ralph Tovar MD [facility] CHEST PAIN,-07/20 NUC EF 58PALPITATIONS BIGEMINY, TRIGEMINYHypertensionPrediabetesDyspnea on exertion--echo ef nl, 04/2024, stress nuc nl, VASleep apnea, on cpapCarotid arterial disease, 50-69% RAZ 04/2024 - In-person encounter Office Visit Ralph Tovar MD [facility] CHEST PAIN,-07/20 NUC EF 58 VITAL [...] Jar ret pulse rate 66 /min [facility] blood pressure, cuff size regular Ja rr oxygen saturation, oximetry 97 % [facility] respiratory rate E&M 16 /min [facility] weight E&M 232 [lb_av] [facility] y height E&M 71 [in_i] Hill [...] 0-149 3 cholesterol, serum 126 mg/dL [employer] [phone]/07/1 3 alanine aminotransferase (SGPT), serum 52 1/L [...] 3.5-5.2 3 sodium, serum 142 mmol/L [facility] [phone]/07/1 3 urea nitrogen/creatinine ratio, serum 15 [employer] [...] Estab. 3 platelet count 296 X10E3/UL [facility] [phone]/07/1 3 red blood cell distribution width 12.6 [...] 0.5 tablet twice a day - Doug Luciaontutu succinate changed to tartrate do to unavailability [...] Policy type / Coverage type Mer red libertarian ID [employer] PPO O [id number] ADVANCE DIRECTIVES Name Date DISCUSSED - NO [...] (Metoprolol tartrate) Losartan 50 Mg Tablet (Losartan) [facility]: B P today: 131/79 P rior BP: 155/88 (08/02/2008) His updated medication list for this problem includes: Metoprolol Tartrate 25 Mg Tablet (Metoprolol tartrate) Losartan 50 Mg Tablet (Losartan) Orders: C omplete Echo (30369) C OMPREHENSIVE METABOLIC PANEL, W/EGFR (71549) C BC (INCLUDES DIFF/PLT) (6399) H EMOGLOBIN A1c (496) L IPID PANEL (7600) T SH, free T4, total T3 (7444) P ROBNP, N TERMINAL (16618) C RP, high sensitivity (87135) [facility]: O rders: C omplete Echo (29295) C OMPREHENSIVE METABOLIC PANEL, W/EGFR (27512) C BC (INCLUDES DIFF/PLT) (6399) H EMOGLOBIN A1c (496) L IPID PANEL (7600) T SH, free T4, total T3 (7444) P ROBNP, N TERMINAL (70376) C RP, high sensitivity (78875) [facility]: O rders: C omplete Echo (87778) C arotid Duplex Bilateral (CPT-78169) C OMPREHENSIVE METABOLIC PANEL, W/EGFR (73326) C BC (INCLUDES DIFF/PLT) (6399) H EMOGLOBIN A1c (496) L IPID PANEL (7600) T SH, free T4, total T3 (7444) P ROBNP, N TERMINAL (80448) C RP, high sensitivity (40527) [facility]: O rders: C omplete Echo (30502) C OMPREHENSIVE METABOLIC PANEL, W/EGFR (46935) C BC (INCLUDES DIFF/PLT) (6399) H EMOGLOBIN A1c (496) L IPID PANEL (7600) T SH, free T4, total T3 (7444) P ROBNP, N TERMINAL (20668) C RP, high sensitivity (92699) [facility]: O rders: S leep Study Home (CPT-22867) [facility] office visit: [...]
[2025-02-13] MEDS: MORPHINE SULFATE (*CRX) 4 MG/ML INJ IV PUSH (13:36)
[2025-02-13] MEDS: ONDANSETRON INJ 4 MG/2 ML VIAL IV PUSH (13:36)
[2025-02-13 13:47] VITALS: BP 126/74; PULSE 72; RESP 16; TEMP 36.6; O2SAT 98
== END 2025-02-13 13:44 | disposition home or self-care (01) ==
PROVIDERS: Emergency Medicine; Emergency Provider Emergency Medicine; PCP Family Medicine
DX: S80.01XA Contusion of right knee, initial encounter (principal); W18.30XA Fall on same level, unspecified, initial encounter; Z96.651 Presence of right artificial knee joint; E78.2 Mixed hyperlipidemia; E11.9 Type 2 diabetes mellitus without complications; I10 Essential (primary) hypertension; Z87.891 Personal history of nicotine dependence
CPT/HCPCS: 73562; 81003; 96374; 96375; 99284; J2270; J2405

== ENCOUNTER 2025-02-14 12:15 | Outpatient (CLI) | payer MEDICARE, SELFPAY ==
--- NOTE | ~2025-02-14 | CT_ITS ---
CT brain wo con Ordering provider: Aimee Hardwick PA-C History: 70 years Male with . G45.9 - Transient cerebral ischemic attack, unspecified . Comparison: None. Technique: CT of the head without contrast. Radiation reduction technique utilized.The dose-length pr oduct was 605.33 mGy-cm. FINDINGS: BRAIN PARENCHYMA AND CSF SPACES: Mild leukoaraiosis and diffuse cortical atrophy. Mild atheromatous d isease. Small lacunar infarct in the right basal ganglia. No midline shift, mass effect or hemorrhage . The brain parenchyma and CSF spaces are otherwise normal. VISUALIZED PARANASAL SINUSES: Left maxillary sinusitis. Otherwise, Well aerated. MASTOIDS: Well aerated. BONES: The bones appear intact. SOFT TISSUES: Visualized nasopharynx is normal. Superficial soft tissues are normal. IMPRESSION: No acute intracranial findings. Left maxillary sinusitis. Reviewed, dictated and finalized at location A.
--- OUTSIDE RECORDS SUMMARY | 2025-02-14 12:43 | XMS_ITS | CONTINUITY OF CARE DOCUMENT ---
Author Name onofre, onofre Address Unknown Organization [facility] Address [address] [address] [place] [address] Phone [phone] Care Team Providers Care Community Relations Liaison Name Role Phone Guy PETERSON, Ralph Unavailable [...] In-person encounter Office Visit Ralph Tovar MD [facility] Dyspnea on exertion--echo ef nl, 04/2024 , stress nuc nl, 10/2024Sleep apnea, on cpap - In-person encounter Office Visit Ralph Tovar MD [facility] Dyspnea on exertion--echo ef nl, 04/2024 , stress nuc nl, 10/2024Sleep apnea, on cpapCarotid arterial disease, 50-69% RAZ 04/2024 - In-person encounter Office Visit Ralph Tovar MD [facility] CHEST PAIN,-07/20 NUC EF 58PALPITATIONS BIGEMINY, TRIGEMINYHypertensionPrediabetesDyspnea on exertion--echo ef nl, 04/2024, stress nuc nl, VASleep apnea, on cpapCarotid arterial disease, 50-69% RAZ 04/2024 - In-person encounter Office Visit Ralph Tovar MD [facility] CHEST PAIN,-07/20 NUC EF 58 VITAL [...] mm[Hg] Jar ret pulse rate 66 /min [facility] blood pressure, cuff size regular Ja rr oxygen saturation, oximetry 97 % [facility] respiratory rate E&M 16 /min [facility] weight E&M 232 [lb_av] [facility] y height E&M 71 [in_i] Hill [...] 0-149 3 cholesterol, serum 126 mg/dL [facility] [phone]/07/1 3 alanine aminotransferase (SGPT), serum 52 1/L [...] 3.5-5.2 3 sodium, serum 142 mmol/L [facility] [phone]/07/1 3 urea nitrogen/creatinine ratio, serum 15 [employer] [...] Estab. 3 platelet count 296 X10E3/UL [facility] [phone]/07/1 3 red blood cell distribution width 12.6 [...] Policy type / Coverage type [employer] red constitution party ID [employer] PPO O [id number] ADVANCE DIRECTIVES Name Date DISCUSSED - NO [...] (Metoprolol tartrate) Losartan 50 Mg Tablet (Losartan) [facility]: B P today: 131/79 P rior BP: 155/88 (08/02/2008) His updated medication list for this problem includes: Metoprolol Tartrate 25 Mg Tablet (Metoprolol tartrate) Losartan 50 Mg Tablet (Losartan) Orders: C omplete Echo (30924) C OMPREHENSIVE METABOLIC PANEL, W/EGFR (52295) C BC (INCLUDES DIFF/PLT) (6399) H EMOGLOBIN A1c (496) L IPID PANEL (7600) T SH, free T4, total T3 (7444) P ROBNP, N TERMINAL (68706) C RP, high sensitivity (92363) [facility]: O rders: C omplete Echo (84066) C OMPREHENSIVE METABOLIC PANEL, W/EGFR (41514) C BC (INCLUDES DIFF/PLT) (6399) H EMOGLOBIN A1c (496) L IPID PANEL (7600) T SH, free T4, total T3 (7444) P ROBNP, N TERMINAL (32201) C RP, high sensitivity (99883) [facility]: O rders: C omplete Echo (61615) C arotid Duplex Bilateral (CPT-30669) C OMPREHENSIVE METABOLIC PANEL, W/EGFR (18235) C BC (INCLUDES DIFF/PLT) (6399) H EMOGLOBIN A1c (496) L IPID PANEL (7600) T SH, free T4, total T3 (7444) P ROBNP, N TERMINAL (81379) C RP, high sensitivity (71184) [facility]: O rders: C omplete Echo (54258) C OMPREHENSIVE METABOLIC PANEL, W/EGFR (67947) C BC (INCLUDES DIFF/PLT) (6399) H EMOGLOBIN A1c (496) L IPID PANEL (7600) T SH, free T4, total T3 (7444) P ROBNP, N TERMINAL (12269) C RP, high sensitivity (20545) [facility]: O rders: S leep Study Home (CPT-13761) [facility] office visit: [...]
== END 2025-02-14 12:16 | disposition home or self-care (01) ==
PROVIDERS: PCP Family Medicine; Visit Provider Student in an Organized Health Care Education/Training Program
DX: G45.9 Transient cerebral ischemic attack, unspecified (principal); S09.90XA Unspecified injury of head, initial encounter; X58.XXXA Exposure to other specified factors, initial encounter; J32.0 Chronic maxillary sinusitis
CPT/HCPCS: 70450

== ENCOUNTER 2025-02-23 12:33 | Outpatient (CLI) | payer MEDICARE, SELFPAY ==
--- NOTE | ~2025-02-23 | CT_ITS ---
Noncontrast CT scan of the right knee CLINICAL HISTORY: Right knee arthroplasty TECHNIQUE: Axial noncontrast imaging of the right knee was performed. Sagittal and coronal reformatte d images were constructed. Dose reduction technique was used on this scan by utilizing automated expo sure control and iterative reconstruction technique. The dose-length product (DLP) was 235.44 mGy-cm. Correlation made with prior radiographs dated 02/17/2025 and 02/13/2025. Findings: Knee arthroplasty hardware is present, with associated streak artifact which somewhat limit s evaluation. No distinct evidence for hardware loosening. As seen on prior radiographs, there is small subtle crescentic shaped bony fragment which appears rep resent avulsion fracture from the inferior patella, with distraction by approximately 2.3 cm. There i s extensive soft tissue thickening or fluid surrounding the patella, which could reflect bursitis and /or effusion, in conjunction with possible postoperative change and swelling. Otherwise, there is min imal subcutaneous soft tissue edema about the knee. IMPRESSION: Probable crescentic avulsion fracture from the inferior patella, with distraction by 2.3 cm. Extensive soft tissue thickening and/or fluid surrounding at the patella, which could reflect bursiti s and/or effusion, with possible additional postoperative changes/swelling. Correlate for superimpose d soft tissue infection or other postoperative infection. Element of postoperative hematoma may be pr esent. Clinical correlation is required. Reviewed, dictated and finalized at [facility]. IMPRESSION: Probable crescentic avulsion fracture from the inferior patella, with distracti on by 2.3 cm. Extensive soft tissue thickening and/or fluid surrounding at the patella, which could reflect bursitis and/or effusion, with possible additional postoperative changes/swelling. Correlate for superimposed soft tissue infection or other po stoperative infection. Element of postoperative hematoma may be present. Clinic al correlation is required.
== END 2025-02-23 12:34 | disposition home or self-care (01) ==
LOC: MICIMG 12:34
PROVIDERS: PCP Family Medicine; Visit Provider Orthopaedic Surgery
DX: S86.899A Other injury of other muscle(s) and tendon(s) at lower leg level, unspecified leg, initial encounter (principal); Z96.651 Presence of right artificial knee joint
CPT/HCPCS: 73700

== ENCOUNTER 2025-04-03 10:33 | Emergency (ER) | payer MEDICARE, SELFPAY ==
--- NOTE | ~2025-04-03 | XR_ITS ---
Portable chest x-ray Comparison: 03/31/2023 Clinical History: Shortness of breath Findings: Probable left basilar atelectatic change or scarring. Right lung clear. Cardiomediastinal silhouette is stable. Bones and soft tissues are unremarkable. Impression: Probable left basilar atelectatic change or scarring, otherwise clear lungs. Reviewed, dictated and finalized at [facility]. Impression: Probable left basilar atelectatic change or scarring, otherwise clear lungs.
--- NOTE | ~2025-04-03 | CT_ITS ---
Clinical Indication: Shortness of breath CT Scan of the Chest with Contrast: Technique: Contiguous sections were acquired throughout the chest after intravenous administration of 100 cc of Omnipaque 350. Dose reduction technique was used on this scan by utilizing automated expos ure control and iterative reconstruction technique. The dose-length product (DLP) was 669.23 mGy-cm. Findings: There is probable pulmonary embolus in the right lower lobar pulmonary artery extending to segmental branches. Additional small peripheral pulmonary difficult to exclude due to mild motion and streak ar tifact. No other large central pulmonary embolus evident. There is no evidence of aortic dissection o r aneurysm. There is no evidence of pleural or pericardial effusion. There is mild dependent atelectatic changes bilaterally. Images through the upper abdomen reveal no abnormalities. There is DISH of the thoracic spine. Impression: Probable pulmonary embolus the right lower lobar pulmonary artery extending into the segmental branch es in the right lower lobe. Additional small peripheral pulmonary emboli in the remainder of the lung s are difficult to exclude due to motion/streak artifact. Dependent atelectatic changes bilaterally. Reviewed, dictated and finalized at [facility]. Impression: Probable pulmonary embolus the right lower lobar pulmonary artery extending int o the segmental branches in the right lower lobe. Additional small peripheral p ulmonary emboli in the remainder of the lungs are difficult to exclude due to m otion/streak artifact. Dependent atelectatic changes bilaterally.
[2025-04-03 10:21] VITALS: BP 134/65; PULSE 85; RESP 26; TEMP 36.6; O2SAT 95
--- NOTE | 2025-04-03 10:43 | ECG_ITS ---
Test Date: 2025-04-03 10:37:40 Measurements Intervals Fletcher Rate: 83 P: 39 PA: 172 QRS: 7 QRSD: 90 T: 47 QT: 372 QTc: 439 Interpretive Statements SINUS RHYTHM BASELINE ARTIFACT- I, III, AVR, AVL, AVF, V1-V3 NORMAL ECG No previous ECG available for comparison Electronically Signed On 04-03-2025 12:40:11 CDT by Alfa Mccord D.O.
[2025-04-03 10:44] VITALS: PULSE 84; O2SAT 97
[2025-04-03 10:49] VITALS: PULSE 83; RESP 20; O2SAT 96
[2025-04-03 11:00] VITALS: BP 126/71; PULSE 84; RESP 18; O2SAT 97
[2025-04-03 11:01] LABS: Basophils Percent Auto 0.2 % (0.2-1.2); Eosinophils Absolute Auto 0.6 K/mm3 (0-0.3); Eosinophils Percent Auto 3.1 % (0-4.4); Hemoglobin 11.2 g/dL (14.0-18.0); Immature Granulocyte Absolute 0.09 K/mm3 (0.00-0.031); Immature Granulocyte Percent A 0.5 % (0-0.5); Lymphocytes Absolute Auto 2.73 K/mm3 (0.9-3.2); Lymphocytes Percent Auto 13.8 % (18.3-44.2); Mean Corpuscular Hemoglobin 29.4 pg (26-34); Mean Corpuscular Volume 91.9 fl (80-100); Monocytes Absolute Auto 2.4 K/mm3 (0.1-0.6); Neutrophils Percent Auto 70.4 % (45.5-73.1); Platelet Count Result 258 k/mm3 (150-375); Red Blood Count 3.81 M/mm3 (4.6-6.20); Red Cell Distribution Width 14.9 % (11.5-14.5); White Blood Count 19.9 K/mm3 (4.5-10.0)
[2025-04-03 11:12] LABS: Alanine Aminotransferase 17 U/L (6-50); Alkaline Phosphatase 67 U/L (38-126); Anion Gap 9 mmol/L (4-12); Aspartate Amino Transferase 29 U/L (17-59); Bilirubin,Total 0.6 mg/dL (0.2-1.3); Blood Urea Nitrogen 12 mg/dL (9-20); Calcium 9.2 mg/dL (8.4-10.2); Carbon Dioxide 26 mmol/L (22-30); Chloride 101 mmol/L (98-107); Estimated CRCL calculation 80 ml/min; Estimated Glomerular Filt Rate > 60; Glucose 112 mg/dL (65-110); Potassium 4.3 mmol/L (3.4-5.0); Sodium 136 mmol/L (137-145); Total Protein 6.9 g/dL (6.3-8.2)
[2025-04-03 11:31] VITALS: BP 127/68; O2SAT 94
--- NOTE | 2025-04-03 11:53 | ED.SOB ---
HPI - SOB/Dyspnea General Chief Complaint: Shortness of Breath/Dyspnea Stated Complaint: SOB Time Seen by Provider: 04/03/25 10:54 Source: patient and family () Limitations: no limitations History of Present Illness HPI Narrative: Patient presents with shortness of breath, of one to two months but seems to be worsening. Had right knee replacement 01/11/[address] Ayers then fell after requiring surgery 04/01 at [facility] in [facility] with Dr Dennis Skelton. Has follow up appointment to see orthopedic surgeon on Friday. Was advised after surgery to start DVT prophylaxis; took first dose Elliquis this morning at 6am; also took his [place]. Temp 99.2 at the house this morning and 100.9F when the home health RN visited. Has had a productive cough of brown sputum. Has edema in R leg post surgically. No sick contacts. No orthopnea or PND. No debbie chest pain but pain with exhalation. Has a wound vac in place. Related Data Home Medications ?Medication ?Instructions ?Recorded ?Confirmed ?Last Taken ?Type yafljxij-bcezkifc-uhkmf acid 400 1 tablet PO DAILY 01/19/24 04/03/25 04/03/25 History mcg-vit K 20 mcg-lycop 300 mcg tablet (One-A-Day Men's Multivitamin) gabapentin 300 mg capsule 300 mg PO TID 10/19/24 04/03/25 04/03/25 History brexpiprazole 1 mg tablet (Rexulti) 1 mg PO HS 12/28/24 04/03/25 04/02/25 History calcium 600 mg (as carbonate)-vit 2 tablet PO HS 12/28/24 04/03/25 04/02/25 History D3 20 mcg (800 unit) chewable tablet (Caltrate plus D) fluoxetine 20 mg capsule 20 mg PO BID 12/28/24 04/03/25 04/03/25 History trazodone 50 mg tablet 50 mg PO HS 12/28/24 04/03/25 04/02/25 History apixaban 2.5 mg tablet (Eliquis) 2.5 mg PO BID 04/03/25 04/03/25 04/03/25 History docusate sodium 100 mg capsule 100 mg PO DAILY PRN constipation 04/03/25 04/03/25 04/03/25 History (Colace) doxycycline monohydrate 100 mg 100 mg PO BID 04/03/25 04/03/25 04/03/25 History capsule famotidine 20 mg tablet 20 mg PO DAILY 04/03/25 04/03/25 04/03/25 History hydrocodone 5 mg-acetaminophen 325 1 tablet PO Q6H PRN pain 04/03/25 04/03/25 04/03/25 History mg tablet polyethylene glycol 3350 17 17 g PO DAILY 04/03/25 04/03/25 04/03/25 History gram/dose oral powder (Miralax) pregabalin 50 mg capsule (Lyrica) 50 mg PO BID 04/03/25 04/03/25 04/03/25 History sennosides 8.6 mg capsule (senna) 8.6 mg PO DAILY PRN constipation 04/03/25 04/03/25 04/02/25 History Allergies Allergy/AdvReac Type Severity Reaction Status Date / Time bupropion (From Wellbutrin) AdvReac Severe N/V, Verified 04/03/25 10:44 [facility]RITABILTY FOR[facility]LY [facility], [facility] Past Medical History Medical History (Updated 04/04/25 @ 21:[address] MD) History of colonic polyps Right buttock pain Leg swelling Sinusitis Pharyngitis Type 2 diabetes mellitus without complication, without long-term current use of insulin Nocturia Mixed hyperlipidemia Essential (primary) hypertension Palpable mass of lower back Back pain Patellar bursitis of left knee Plantar fasciitis of left foot Pain of left heel Foot pain, left Constipation by delayed colonic transit Arthritis of both knees Excessive daytime sleepiness Anemia SOBOE (shortness of breath on exertion) Cough due to MARCELINO inhibitor Bronchitis Opioid dependence MDD (major depressive disorder), recurrent episode, moderate Arthritis Chronic pain disorder Surgical History Surgical History H/O arthroscopic knee surgery Right S/P total knee arthroplasty 01/11/25 Dr Ayers; complicated by fall s/p surgery 04/01/25 [facility] Family History Family History Father Family history of cardiovascular disease, Onset Age: 77 Hypertension Depression Mother Depression Cancer Other Family history of liver disease Social History Social History Social History: caffeine uses Smoking packs per day: 1 Smoking cigarettes per day: 20.0 Years smoked: 10 Smoking pack-years: 10.00 Smoking status: Former smoker Tobacco type: cigarettes Second hand tobacco smoke exposure: No Alcohol intake: never Substance use: never Substance use type: does not use Do You Feel Safe in your Home?: Yes Lack of Transportation: No Lack of Food: Never True Current Housing: I Have Housing Concerned About Future Housing: No Difficulty Paying Gas/Electric Bills: No Difficulty Paying for Meds: No Currently Unemployed: No Education: High School Diploma/GED Difficulty w/ Childcare or Family Care: No Living arrangements: with family Additional living arrangements comments: Occupation/Education: retired Gender identity (if verbalized by the patient): Male Sexual Orientation (if Verbalized by the Patient): Straight or Heterosexual Spiritual care concerns: No Exam Narrative: GENERAL: Well-appearing, well-nourished, and in no acute distress. HEAD: Normocephalic, atraumatic. EYES: Non injected, non icteric ENT: Nares clear, no rhinorrhea or epistaxis. Gross auditory acuity intact. NECK: Supple. No meningismus. CHEST: Speaking in full sentences. No respiratory distress. HEART: Regular rate and rhythm. . ABDOMEN: Soft, nondistended. No rigidity or guarding. Not peritoneal EXTREMITIES: Right lower extremity edema. Wound vac in place. Leg in knee immobilizer. SKIN: Warm, dry NEURO: No focal deficits. Alert and oriented. Answering questions. Following commands. Normal speech without aphasia or dysarthria. PSYCH: Normal mood and affect. Course Vital Signs Vital signs: Vital Signs Temperature 98 F 04/03/25 10:21 Pulse Rate 85 04/03/25 10:21 Respiratory Rate 26 H 04/03/25 10:21 Blood Pressure 134/65 04/03/25 10:21 Pulse Oximetry 95 04/03/25 10:21 Oxygen Delivery Room Air 04/03/25 10:21 Temperature 98 F 04/03/25 10:21 Pulse Rate 84 04/03/25 11:00 Respiratory Rate 18 04/03/25 11:00 Blood Pressure 128/69 04/03/25 12:16 Pulse Oximetry 95 04/03/25 12:16 Oxygen Delivery Room Air 04/03/25 10:44 MDM - SOB/Dyspnea MDM Narrative Medical decision making narrative: Patient presents with shortness of breath, for 1-2 months but with worsening recently. Underwent R knee replacement 01/11/25 complicated by a fall requiring second surgery 04/[address] [facility] on 04/01/25. Febrile at home and coughing brown sputum. In the emergency department he is afebrile with vital signs notable for tachypnea. Leukocytosis and normocytic anemia. BNP only mildly elevated, not to a degree to suggest acute heart failure based on the reference range of the assay for patient's age. Patient does appear to have a pulmonary embolism. Although this technically occurred while anticoagulation, he only has 1 dose in his system as he started Eliquis this morning for post operative DVT prophylaxis. Troponin normal. Otherwise hemodynamically stable and therefore HESTIA criteria supports reasonable for outpatient therapy. DIscussed with patient and who verify understanding. DVT prophylaxis dose is 2.5mg BID. Advised that PE dosing is 10mg BID for 7 days followed by 5mg BID and that would prescribe this as starter pack but could use current prescription initially (i.e. four 2.5 mg tablets) and moving forward. Advised to tell orthopedic surgeon at follow up appointment Friday and that this likely represents provoked DVT given perioperative period. Stable for discharge. Differential Diagnosis Differential diagnosis: Likely congestive heart failure, community acquired pneumonia (Postoperative), pulmonary embolism and other (Acute viral syndrome; bronchitis) Lab Data Attestation: I reviewed the patient's lab results. 04/03/25 10:49 04/03/25 10:49 Labs: Lab Results 04/03/25 04/03/25 Range/Units 10:49 12:15 WBC 19.9 H (4.5-10.0) K/mm3 RBC 3.81 L (4.6-6.20) M/mm3 Hgb 11.2 L (14.0-18.0) g/dL Hct 35.0 L (42.0-52.0) % MCV 91.9 (80-100) fl MCH 29.4 (26-34) pg MCHC 32.0 (32-36) g/dl RDW 14.9 H (11.5-14.5) % Plt Count 258 (150-375) k/mm3 MPV 10.0 (7.4-10.4) fl Immature Gran % (Auto) 0.5 (0-0.5) % Neut % (Auto) 70.4 (45.5-73.1) % Lymph % (Auto) 13.8 L (18.3-44.2) % [place] % (Auto) 12.0 H (2.6-8.5) % Eos % (Auto) 3.1 (0-4.4) % Baso % (Auto) 0.2 (0.2-1.2) % Lymph # (Auto) 2.73 (0.9-3.2) K/mm3 [place] # (Auto) 2.4 H (0.1-0.6) K/mm3 Eos # (Auto) 0.6 H (0-0.3) K/mm3 Baso # (Auto) 0.0 (0.0-0.1) K/mm3 Abs Immat Gran (auto) 0.09 H (0.00-0.031) K/mm3 Absolute Neuts (auto) 14.0 H (1.3-6.7) K/mm3 Absolute Nucleated RBC 0.000 (0.0-0.012) K/mm3 Nucleated RBC % 0.0 (0.0-0.2) % Sodium 136 L (137-145) mmol/L Potassium 4.3 (3.4-5.0) mmol/L Chloride 101 (98-107) mmol/L Carbon Dioxide 26 (22-30) mmol/L Anion Gap 9 (4-12) mmol/L BUN 12 (9-20) mg/dL Creatinine 0.95 (0.7-1.3) mg/dL Estim Creat Clear Calc 80 ml/min Estimated GFR > 60 (59 - ) Glucose 112 H (65-110) mg/dL Calcium 9.2 (8.4-10.2) mg/dL Total Bilirubin 0.6 (0.2-1.3) mg/dL AST 29 (17-59) U/L ALT 17 (6-50) U/L Alkaline Phosphatase 67 (38-126) U/L Troponin I < 0.012 (0.000-0.034) ng/mL NT-Pro-B Natriuret Pep 138 H (19.9-100) pg/mL Total Protein 6.9 (6.3-8.2) g/dL Albumin 4.0 (3.5-5.1) g/dL Influenza A (RT-PCR) Negative (Negative) Influenza B (RT-PCR) Negative (Negative) RSV (RT-PCR) Negative (Negative) SARS-CoV-2 RNA (RT-PCR) Negative (Negative) Imaging Data Radiologist's impression: Impression: Probable left basilar atelectatic change or scarring, otherwise clear lungs. Impression: Probable pulmonary embolus the right lower lobar pulmonary artery extending into the segmental branches in the right lower lobe. Additional small peripheral pulmonary emboli in the remainder of the lungs are difficult to exclude due to motion/streak artifact. Dependent atelectatic changes bilaterally. ECG Data EKG #1: Attestation: I personally reviewed and interpreted this ECG as follows: ECG completion date: 04/03/25 ECG completion time: 10:37 Interpretation: Normal sinus rhythm at a rate of 83 beats per minute. LA interval 172. QRS 90. QT/QTC 372/412. Good R-wave progression across the precordial leads. T-wave flattening in 3 but otherwise upright in normal in contiguous inferior leads 2 and AVF. No other T-wave inversions. Discharge Plan Discharge Clinical Impression: Shortness of breath, Leukocytosis, Anemia, Pulmonary embolism on right Patient Disposition: Home Condition: Stable Instructions: Antibiotic Form, Pulmonary Embolism (ED), Leukocytosis (ED), Anemia (ED), Shortness of Breath (ED) Additional Instructions: As we discussed, evidence of a blood clot your lungs known as a pulmonary embolism. You will start taking the same medication, Eliquis but at the new prescribed dose. As a reminder, while on this medication you are not take NSAIDs such as ibuprofen, Advil, Aleve, Motrin, Naprosyn, naproxen, etc. follow-up with your primary care physician and notify your orthopedic surgeon at your upcoming appointment about this diagnosis. We discussed that you are at increased risk of bleeding while on this medication. Return to the emergency department any new, worsening, or unmanaged symptoms. Patient Language: Vietnamese Prescriptions: New Eliquis DVT-PE Treat 30D Start 5 mg (74 tabs) tablets,dose pack See Rx Instructions .ROUTE .COMPLEX Qty: 74 0RF Rx Instructions: orally per package directions No Action One-A-Day Men's Multivitamin 400-20-300 mcg tablet 1 tablet PO DAILY gabapentin 300 mg capsule 300 mg PO TID Rexulti 1 mg tablet 1 mg PO HS trazodone 50 mg tablet 50 mg PO HS fluoxetine 20 mg capsule 20 mg PO BID Caltrate 600 plus D 600 mg-20 mcg (800 unit) tablet,chewable 2 tablet PO HS aspirin 81 mg Tablet,Delayed Release (Dr/Ec) 81 mg PO Q12HR 28 Days Qty: 56 0RF hydrocodone-acetaminophen 5-325 mg tablet 1 tablet PO Q6H PRN (Reason: pain) Eliquis 2.5 mg tablet 2.5 mg PO BID doxycycline monohydrate 100 mg capsule 100 mg PO BID docusate sodium [Colace] 100 mg capsule 100 mg PO DAILY PRN (Reason: constipation) famotidine 20 mg tablet 20 mg PO DAILY polyethylene glycol 3350 [Miralax] 17 gram/dose powder 17 g PO DAILY pregabalin [Lyrica] 50 mg capsule 50 mg PO BID senna 8.6 mg capsule 8.6 mg PO DAILY PRN (Reason: constipation) memantine 10 mg tablet See Rx Instructions .ROUTE .COMPLEX Qty: 180 3RF Dose Instruction: TAKE 1 TABLET TWICE DAILY Rx Instructions: TAKE 1 TABLET TWICE DAILY (DME) blood-glucose meter [Accu-Chek Guide Glucose Meter] Misc See Rx Instructions .Route Qty: 1 3RF Rx Instructions: As directed lancets [Accu-Chek Softclix Lancets] Misc See Rx Instructions .ROUTE .COMPLEX Qty: 300 3RF Dose Instruction: CHECK BLOOD GLUCOSE TWO TO THREE TIMES DAILY NEEDED DIRECTED Rx Instructions: CHECK BLOOD GLUCOSE TWO TO THREE TIMES DAILY NEEDED DIRECTED atorvastatin 40 mg tablet 40 mg PO QHS Qty: 90 3RF tamsulosin 0.4 mg capsule See Rx Instructions .ROUTE .COMPLEX Qty: 90 3RF Dose Instruction: TAKE 1 CAPSULE EVERY DAY Rx Instructions: TAKE 1 CAPSULE EVERY DAY (DME) Accu-Chek Guide test strips Strip See Rx Instructions .ROUTE .COMPLEX Qty: 100 3RF Dose Instruction: TEST BLOOD SUGAR 1 TIME DAILY DIRECTED Rx Instructions: TEST BLOOD SUGAR 1 TIME DAILY DIRECTED donepezil 5 mg tablet See Rx Instructions .ROUTE .COMPLEX Qty: 90 3RF Dose Instruction: TAKE 1 TABLET AT BEDTIME Rx Instructions: TAKE 1 TABLET AT BEDTIME losartan 50 mg tablet See Rx Instructions .ROUTE .COMPLEX Qty: 90 3RF Dose Instruction: TAKE 1 TABLET EVERY DAY Patient Comments: QAM Rx Instructions: TAKE 1 TABLET EVERY DAY metoprolol tartrate 25 mg tablet See Rx Instructions .ROUTE .COMPLEX Qty: 180 3RF Dose Instruction: TAKE 1 TABLET TWICE DAILY Rx Instructions: TAKE 1 TABLET TWICE DAILY metformin 500 mg tablet See Rx Instructions .ROUTE .COMPLEX Qty: 180 2RF Dose Instruction: TAKE 1 TABLET TWICE DAILY Rx Instructions: TAKE 1 TABLET TWICE DAILY Follow-up/Referrals: Robb Sepulveda MD [Primary Care Provider] - Time of Disposition: 14:25
[2025-04-03 12:16] VITALS: BP 128/69; O2SAT 95
[2025-04-03 12:37] LABS: NT Pro B Type Natriuretic Pept 138 pg/mL (19.9-100)
[2025-04-03 13:02] LABS: Influenza A QL RT-PCR Negative (Negative); Influenza B QL RT-PCR Negative (Negative); RSV RNA, RT-PCR Negative (Negative); SARS-CoV-2 RNA PCR Negative (Negative)
[2025-04-03 14:02] LABS: Troponin I < 0.012 ng/mL (0.000-0.034)
[2025-04-03] MEDS: HYDROmorphone HCL INJ (*CRX) 2 MG/ML VIAL 1 MG IV PUSH (14:26)
== END 2025-04-03 15:09 | disposition home or self-care (01) ==
PROVIDERS: Emergency Provider Student in an Organized Health Care Education/Training Program; PCP Family Medicine
DX: I26.99 Other pulmonary embolism without acute cor pulmonale (principal); D64.9 Anemia, unspecified; D72.829 Elevated white blood cell count, unspecified; R06.02 Shortness of breath; Z20.822 Contact with and (suspected) exposure to COVID-19; I10 Essential (primary) hypertension; E11.9 Type 2 diabetes mellitus without complications; E78.2 Mixed hyperlipidemia; G89.29 Other chronic pain; M17.0 Bilateral primary osteoarthritis of knee; Z96.651 Presence of right artificial knee joint; Z86.2 Personal history of diseases of the blood and blood-forming organs and certain disorders involving the immune mechanism; Z86.0100 Personal history of colon polyps, unspecified; Z87.891 Personal history of nicotine dependence; Z79.01 Long term (current) use of anticoagulants; Z79.899 Other long term (current) drug therapy; Z79.84 Long term (current) use of oral hypoglycemic drugs
CPT/HCPCS: 36415; 71045; 71275; 80053; 83880; 84484; 85025; 87637; 93005; 96374; 99284; J1171; Q9967

== ENCOUNTER 2025-04-07 15:43 | Outpatient (CLI) | payer MEDICARE, SELFPAY ==
[2025-04-07 16:09] LABS: Basophils Percent Auto 0.3 % (0.2-1.2); Eosinophils Percent Auto 6.6 % (0-4.4); Hematocrit 33.9 % (42.0-52.0); Hemoglobin 10.7 g/dL (14.0-18.0); Immature Granulocyte Absolute 0.17 K/mm3 (0.00-0.031); Immature Granulocyte Percent A 1.1 % (0-0.5); Lymphocytes Absolute Auto 2.83 K/mm3 (0.9-3.2); Lymphocytes Percent Auto 18.4 % (18.3-44.2); Mean Corpuscular HGB Conc 31.6 g/dl (32-36); Mean Corpuscular Hemoglobin 28.4 pg (26-34); Mean Corpuscular Volume 89.9 fl (80-100); Mean Platelet Volume 9.9 fl (7.4-10.4); Monocytes Absolute Auto 1.7 K/mm3 (0.1-0.6); Monocytes Percent Auto 11.2 % (2.6-8.5); Neutrophils Absolute Auto 9.6 K/mm3 (1.3-6.7); Neutrophils Percent Auto 62.4 % (45.5-73.1); Platelet Count Result 397 k/mm3 (150-375); Red Blood Count 3.77 M/mm3 (4.6-6.20); Red Cell Distribution Width 14.3 % (11.5-14.5); White Blood Count 15.4 K/mm3 (4.5-10.0)
== END 2025-04-07 15:44 | disposition home or self-care (01) ==
PROVIDERS: PCP Family Medicine; Visit Provider Family Medicine
DX: D72.829 Elevated white blood cell count, unspecified (principal)
CPT/HCPCS: 36415; 85025

== ENCOUNTER 2025-04-28 10:38 | Outpatient (CLI) | payer MEDICARE, SELFPAY ==
--- OUTSIDE RECORDS SUMMARY | 2025-04-28 10:57 | XMS_ITS | Data Portability ---
Author Organization [facility] LIZABETHBreanne Address [address] [place] [address] Assessment No assessment recorded. Plan of Treatment Reminders Order Date Submit Date Provider Last Modified By Organization Details Last Modified Time Details Appointments None recorded. Lab PSA, serum or plasma 2017 018 [facility] (Lab), [address] [place] [address], [phone], 8 10:06:06 CMP, serum or plasma 2017 018 [facility] (Lab), [address] [place] [address], [phone], 8 10:06:06 CBC 2017 018 [facility] (Lab), [address] [place] [address], [phone], 8 17:08:33 lipid panel, serum 2017 018 [facility] (Lab), [address] [place] [address], [phone], 8 10:06:07 TSH, ultra-sens itive, serum 2017 018 [facility] (Lab), [address] [place] [address], [phone], 8 10:06:06 Referral urologist referral - please call patient to schedule appt. Thank you 2017 018 [email or web address] Not available 8 15:01:21 Procedures None recorded. Surgeries None recorded. Imaging None recorded. Medication Orders hydrocodon e 5 mg-acetami nophen 325 mg tablet 2017 018 INTERFACE Not available 8 11:19:46 tramadol 50 mg tablet 2017 018 [email or web address] Not available 8 11:12:18 tramadol 50 mg tablet 2017 018 Not available 8 11:12:18 Patient TargetsNo targets recorded. Patient Instructions Encounter Date Encounter Id Patient Instructions Last Modified By Organization Details Last Modified Time 08/20/2018 [id number] knee arthritis: care instructions [email or web address] Not available 08/20/2018 17:21:58 08/27/2018 [id number] learning about high blood pressure [email or web address] Not available 08/27/2018 11:19:43 Reason for Referral Urologist Referral for Abnor mal urine altered stream/milky urine please call patient to schedule appt. Thank you Referring Physician: Richard Ramos, Internal Medicine, Encounter Date: 12/24/2017 Results Created Date Observation Date Name Description Value Unit Range Abnormal Flag Note LastModifiedBy Organization Detail LastModifiedTime 12/02/19 18 XR, knee, 4 or more view No observ ation record ed. Not Available 2017 17:02:35 Result Notes None recorded. Problems Name Problem SNOMED Code Status Onset Date Resolution Date Notes Provider Name and Address Organization Details Recorded Time Essential hypertens ion [id number] Anita Ramos MD Attn: [address] [place], [address], [place] [facility] 6 10:49:08 Osteoarth ritis of knee 478004238 Active Richard Ramos MD Attn: [address] [place], [address], [place] [facility] 6 10:49:08 Psoriasis 6403026 Active Richard Ramos MD Attn: [address] [facility], [place], [address], [place] [facility] 5 12:10:32 Depressiv e disorder 58711644 Active Richard Ramos MD Attn: Accountin g,[address] [facility], [place], [address], [place] [facility] 6 10:49:08 Perifolli culitis 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 Active Richard Ramos MD Attn: Accountin g,[address] [facility], [place], [address], [place] [facility] 6 12:09:24 Skin lesion 58691686 Active Richard Ramos MD Attn: Accountin g,[address] [facility], [place], [address], [place] [facility] 6 11:18:35 Neck pain 24069364 Active Richard Ramos MD Attn: Accountin g,[address] [facility], [place], [address], [place] [facility] 6 10:49:08 Restless legs 07509113 Active Richard Ramos MD Attn: Accountin g,[address] [facility], [place], [address], [place] [facility] 6 11:18:35 Ganglion of hand 984042524 Active Richard Ramos MD Attn: Accountin g,[address] [facility], [place], [address], [place] [facility] 6 10:49:08 Medicatio n monitorin g Active 2016 Richard Ramos MD Attn: Accountin g,[address] [facility], [place], [address], [place] [facility] 7 22:19:45 Family history of Liver disease 639992965 Active 2016 Richard Ramos MD Attn: Accountin g,[address] [facility], [place], [address], [place] [facility] 7 10:58:24 History of polyp of colon 189783489 Active 2016 Richard Ramos MD Attn: Pillolinda g,[address] [facility], [place], [address], [place] [facility] 7 11:05:22 Screening for malignant neoplasm of prostate Active 2016 Richard Ramos MD Attn: Pillolinda g,[address] [facility], [place], [address], [place] [facility] 7 11:05:59 HIV screening Active 2016 Richard Ramos MD Attn: Accountin g,[address] [facility], [place], [address], [place] [facility] 7 11:06:31 Active immunizat ion Active 2016 Richard Ramos MD Attn: Pillolinda g,[address] [facility], [place], [address], [place] [facility] 7 11:07:57 Pain in bilateral legs 481432856388 89661 Active 2016 sharp shooting Richard Ramos MD Attn: Accountlinda g,[address] [facility], [place], [address], [place] [facility] 7 17:04:44 Abnormal liver function 31589517 Active 2016 Richard Ramos MD Attn: So sergio,[address] [facility], [place], [address], [place] [facility] 7 17:19:03 Obesity 999083868 Active 2016 Richard Ramos MD Attn: So g,[address] [facility], [place], [address], [place] [facility] 7 17:19:27 Abnormal urine 418352379 Active 2017 Richard Ramos MD Attn: So g,[address] [facility], [place], [address], [place] [facility] 8 12:45:34 Bilateral knee pain Active 2017 Richard Ramos MD Attn: [place],[address] [facility] [place], [address], [facility] 8 14:05:34 Problem Notes None recorded. Procedures Surgical History Date Name Laterality Status Provider Name and Address Organization Details Recorded Time 1 Knee Surgery completed Richard Ramos MD Attn: Accounting,[address] [facility], [place], [address], [facility] 03/02/2015 11:45:05 Other completed Ranjith Ferguson MA [facility] 03/02/2015 11:12:44 Other completed Ranjith Ferguson MA [facility] 03/02/2015 11:12:44 Imaging Results None recorded. Procedure Notes None recorded. Medical Equipment None [...] AFFECTED AREA(S) BY TOPICAL ROUTE 2 TIMES PE R DAY active Not Available Not Available [...] Not Available Not Available Not Available Fluvirin 9209-9762 45 mcg (15 mcg x 3)/0.5 mL intramusc ular suspensio n 08/20 completed Not Available Not Available Not Available Vitals Date Recorded Body height Body mass index (BMI) Body weight Body temperature Oxygen saturation Oxygen saturation in Arterial blood by Pulse oximetry Heart rate Systolic And Diastolic Provider Name and Address Organization Details Last Updated DateTime 8 177.8 cm 38.3 kg/m2 641109. 16 g 98.3 [degF] 96 % 96 % 86 /min 138/84 mm[Hg] Dulce Garay MA [facility] 8 12:27:58 Date Recorded Body height Body mass index (BMI) Body weight Body temperature Oxygen saturation Oxygen saturation in Arterial blood by Pulse oximetry Heart rate Systolic And Diastolic Provider Name and Address Organization Details Last Updated DateTime 8 177.8 cm 37 kg/m2 851726. 11 g 98.2 [degF] 96 % 96 % 76 /min 140/84 mm[Hg] Dulce Garay MA [facility] 8 13:37:14 Date Recorded Body height Body mass index (BMI) Body weight Body temperature Oxygen saturation Oxygen saturation in Arterial blood by Pulse oximetry Heart rate Systolic And Diastolic Provider Name and Address Organization Details Last Updated DateTime 8 177.8 cm 36.6 kg/m2 576795. 34 g 98 [degF] 97 % 97 % 75 /min 130/76 mm[Hg] Wayne Butts MA [facility] 8 16:28:47 Date Recorded Body height Body mass index (BMI) Body weight Body temperature Oxygen saturation Oxygen saturation in Arterial blood by Pulse oximetry Heart rate Systolic And Diastolic Provider Name and Address Organization Details Last Updated DateTime 8 177.8 cm 36.6 kg/m2 691141. 05 g 98.2 [degF] 98 % 98 % 74 /min 138/82 mm[Hg] Dulce Garay [place] [facility] 8 10:57:58 Social History Question Answer Notes LastModified by Organizat ion Details LastModified Time Tobacco Smoking Status Former Smoker Ranjith Ferguson MA null, [facility] 03/02/2015 11:12:44 What Is Your Level Of Caffeine Consumption? Heavy Information not available 03/02/2015 What Was The Date Of Your Most Recent Tobacco Screening? 08/27/2018 Information n ot available 05/06/2019 Sex: Unknown Functional Status Question Answer Note LastModified by Organization D etails LastModified Time What is your level of alcohol consumption? None Information not available 03/02/2015 Mental Status None recorded. Family History Relationship [...] PF, 0.5 mL 1 completed Jennifer vogt, [facility] 04/12/2021 16:15:22 Tdap 7 completed Not Available [facility] 10/30/2019 02:44:48 Influenza, split virus, quadrivalent, preservative 7 completed Not Available [facility] 10/30/2019 02:42:36 Influenza, split virus, quadrivalent, preservative 8 completed Not Available [facility] 10/30/2019 02:51:07 Past Encounters Encounter ID Performer Location Encounter Start Date Encounter Closed Date Diagnosis/Indication Diagnosis SNOMED-CT Code Diagnosis ICD10 Code Diagnosis Note [id number] MD Michael Nair (Adult Med) [address] [place] [id number] 03/02/2015 10:31:18 03/02/2015 12:14:26 Essential hypertension 40534297 Osteoarthr itis of knee 466953490 Screening for malignant neoplasm of prostate 754239019 History of polyp of colon 653667354 Psoriasis 2603648 [id number] MD Michael Nair (Adult Med) [address] [place] [id number] 05/02/2015 11:05:15 05/02/2015 12:59:29 Osteoarthritis of knee 760777742 Will increase to tramadol to q 6hrs and dispense 110 [id number] MD Michael Nair (Adult Med) [address] [place] [id number] 08/02/2015 16:17:29 08/02/2015 17:45:24 Depressive disorder 85394177 F32.9 Essential hypertension 37092864 I10 Osteoarthr itis of knee 054571882 M17.9 Will increase to tramadol to q 6hrs and dispense 110 [id number] MD Michael Nair (Adult Med) [address] [place] [id number] 10/02/2015 10:31:39 10/02/2015 16:14:10 Essential hypertension 30248101 I10 History of polyp of colon 194673453 Z86.010 Osteoarthr itis of knee 144997536 M17.9 Will increase to tramadol to q 8 hrs Depressive disorder 3548 9007 F32.9 Perifolliculitis 9811105 4 L01.02 Localised. Skin lesion 50435172 L98 .9 Lefdt evangelical [id number] MD Michael Nair (Adult Med) [address] [place] [id number] 01/01/2016 10:20:13 01/01/2016 12:10:47 Essential hypertension 37494343 I10 Neck pain 70121167 M54.2 Perifolliculitis 2246584 4 L01.02 Localised. Skin lesion 08837494 L98 .9 Right thigh [id number] MD Michael Nair (Adult Med) [address] [place] [id number] 04/01/2016 09:41:34 04/01/2016 11:21:04 Essential hypertension 51544486 I10 Depressive disorder 3548 9007 F32.9 Skin lesion 49495288 L98 .9 Right thigh Restless legs 16427870 G 25.81 Osteoarthr itis of knee 521136510 M17.9 Will increase to tramadol to q 8 hrs [id number] [facility] [address] [place] [id number] 07/23/2016 09:45:34 07/23/2016 10:50:06 Essential hypertension 22746472 I10 Neck pain 26714103 M54.2 Osteoarthr itis of knee 041774254 M17.9 Will increase to tramadol to q 8 hrs Depressive disorder 3548 7 F32.9 Ganglion of hand 7080671 07 M67.214 [id number] MD Michael Nair (Adult Med) [address] [place] [id number] 12/24/2016 09:47:34 12/24/2016 17:23:41 Osteoarthritis of knee 330064074 M17.9 Essential hypertension 34894117 I10 Psoriasis 7440762 L40.9 Family his tory of Liver disease 898793007 Z83.79 History of polyp of colon 487377795 Z86.010 Screening for malignant neoplasm of prostate 554464280 Z12.5 HIV screening 471064750 Z11.4 Active immunization 3387 9002 Z23 [id number] MD Michael Nair (Adult Med) [address] [place] [id number] 04/29/2017 11:24:31 04/30/2017 18:31:41 Depressive disorder 91144193 F32.9 Will taper venlafaxin e and start duloxetine Family his tory of Liver disease 614923206 Z83.79 Osteoarthr itis of knee 074828865 M17.9 [id number] MD Michael Nair (Adult Med) [address] [place] [id number] 07/01/2017 10:20:13 07/01/2017 11:45:17 Essential hypertension 64644390 I10 Depressive disorder 3548 7 F32.9 Start amitriptyl ine Active immunization 3387 9002 Z23 [id number] MD Michael Nair (Adult Med) [address] [place] [id number] 09/24/2017 16:13:12 09/24/2017 17:19:00 Essential hypertension 04011627 I10 Restless legs 94638665 G 25.81 Osteoarthr itis of knee 584580185 M17.9 Have advised against combining tramadol and hydrocodon e Pain in bi lateral legs 0034487952 2259482 M79.604 M79.605 Will add am gabapentin Family his tory of Liver disease 128792199 Z83.79 Abnormal l iver function 82400744 K76.89 labs on return in 12/2017 Obesity 483911156 E66.9 [id number] MD Michael Nair (Adult Med) [address] [place] [id number] 12/24/2017 12:12:33 12/24/2017 12:50:54 Osteoarthritis of knee 248848360 M17.9 Essential hypertension 82041424 I10 Screening for malignant neoplasm of prostate 686015472 Z12.5 Abnormal l iver function 72257737 K76.89 labs on return in 12/2017 Family his tory of Liver disease 780532830 Z83.79 Abnormal urine 830482797 R82.90 [id number] MD Michael Nair (Adult Med) [address] [place] [id number] 05/12/2018 12:32:57 05/12/2018 14:14:10 Bilateral knee pain 0216107338 4790558 M25.561 M25.680 [id number] MD Michael Almanza (Adult Med) [address] [place] [id number] 06/29/2018 15:24:02 07/06/2018 10:30:40 Administration of influenza vaccine 00179207 Z23 [id number] MD Michael Almanza (Adult Med) [address] [place] [id number] 08/20/2018 15:52:29 08/21/2018 13:55:09 Osteoarthritis of knee 274528268 M17.0 [id number] Richard Ramos MD [facility] (Adult Med) [address] [place] [address] 08/27/2018 10:43:49 08/27/2018 12:03:31 Bilateral knee pain 1379694297 2064657 M25.561 M25.562 Family his tory of Liver disease 845429665 Z83.79 History of polyp of colon 688410911 Z86.010 Essential hypertension 67983577 I10 Health Concerns Section Related Observation LastModified by Organization Detai ls LastModified Time None Recorded Concern Status LastModified by Organization Details LastModified Time None Recorded Advance Directives Directive None Recorded Payers Insurance Date Sequence Insurance Name Policy Number Policy Melgoza Covered Member ID Melgoza Member ID Guarantor Name 10/23/2016 1 [facility] - OPEN ACCESS (POS) [id number] Rene Montes [id number] Rene Montes 11/09/2018 1 [employer] [id number] Rene Montes [id number] Rene Montes Notes Date Note Type Note Provider Name and Address Organization Details Recorded Time 12/24/2017 text/html Scheduled for R knee surgery in 1 month. Has a weaker urinary stream than usual. Episodic burning and milky appearance to urine Richard Ramos MD Attn: [address] [place], [address], [facility] 12/24/2017 12:49:41 05/12/2018 text/html Is concerned abo ut his pain management. Instructed by GI to avoid nsaids and by the orthopedist to avoid hydrocodone. has increase in pain an both knees at present. is willing to resume using tramadol. Worked well in past and he mistakenly thought he had had an adverse reaction the the drug. Richard Ramos MD Attn: [address]ing[address] [place], [address], [facility] 05/12/2018 14:10:33 08/20/2018 text/html Refills of tramadol, Dr.L. Ramos 's patent. knees pain all the time. Right knee was operated , had tried joints injection but still has pain, on tramadol for about [address] Franck Rmaos will be back on next friday08-24-2018. He then can contact him futher care. Kam Aguirre MD Attn: Accounting[address] [facility], [place], [address], [facility] 08/20/2018 17:24:56 08/27/2018 text/html Was informed by GI that he should no longer use NSAIDs. Concerned about rashes associated with Tramadol. Richard Ramos MD Attn: Accounting[address] [facility], [place], [address], [facility] 08/27/2018 11:20:38
--- OUTSIDE RECORDS SUMMARY | 2025-04-28 10:57 | XMS_ITS | Clinical Summary ---
Author Organization [facility] Address [address] [place] [address] Care Team Providers Care Geophysical Laboratory Supervisor Name Role Phone Robb Sepulveda MD Primary Care Provider [phone] Source Comments [facility],non-owned Affiliates and Associated Physician Practices is amultiple site organization consisting of ambulatory clinics and hospital sitesin [place], [place], [place] and [place]. This disclosure is being madepursuant to the Care Everywhere program and may not contain all information available regarding this patient. Last updated 18.[facility] Allergies No known active allergies Medications * Be aware that medications may not be up to date on this document. Alwaysverify current medications with the patient. Aspirin Low Dose 81 MG tablet TAKE 1 TABLET BY MOUTH EVERY 12 HOURS FOR 28 DAYS 01/12/20 25 Active brexpiprazole (Rexulti) 1 MG tablet 1 tablet Orally Once a day for 30 days Active donepezil (Aricept) 5 MG tablet Take 1 (one) tablet by mouth at bedtime 04/06/20 24 Active FLUoxetine (PROzac) 20 MG capsule Take 1 (one) capsule by mouth once daily Active gabapentin (Neurontin) 300 MG capsule Take 1 (one) capsule by mouth 3 times daily 04/06/20 24 Active losartan (Cozaar) 50 MG tablet Take 1 (one) tablet by mouth once daily 04/06/20 24 Active memantine (Namenda) 10 MG tablet Take 1 (one) tablet by mouth 2 times daily 04/06/20 24 Active metFORMIN (Glucophage) 500 MG tablet Take 1 (one) tablet by mouth 2 times daily with morning and evening meal 04/06/20 24 Active metoprolol tartrate IR (Lopressor) 25 MG tablet Take 1 (one) tablet by mouth 2 times daily 04/06/20 24 Active tamsulosin (Flomax) 0.4 MG capsule Take 1 (one) capsule by mouth once daily 04/06/20 24 Active traZODone (Desyrel) 100 MG tablet Take 1 (one) tablet by mouth at bedtime Active apixaban (Eliquis) 2.5 MG tabletIndicatio ns:DVT ppx Take 1 (one) tablet by mouth 2 times daily for 35 days Reasons: DVT ppx 70 tablet 04/01/20 25 025 Active acetaminophen (Tylenol) 500 MG capsule Take 1 (one) capsule by mouth every 6 hours as needed for Pain, Headache or Fever 42 capsule 04/01/20 25 Active famotidine (Pepcid) 20 MG tablet Take 1 (one) tablet by mouth once daily 70 tablet 04/01/20 25 Active Sennosides (Senna) 8.6 MG Take 8.6 mg by mouth once daily as needed (constipation) Narcotics can cause constipation. Please take while taking narcotic pain medications to avoid constipation. Do not take if having loose stools. 30 capsule 04/01/20 25 Active pregabalin (Lyrica) 50 MG capsule Take 1 (one) capsule by mouth 2 times daily for 35 days 70 capsule 04/01/20 25 025 Active polyethylene glycol 3350 (Miralax) 17 GM/SCOOP powder Take 17 (seventeen) g by mouth once daily 238 g 04/01/20 25 Active docusate sodium (Colace) 100 MG capsuleIndicati ons:Constipatio n Take 1 (one) capsule by mouth once daily as needed for Constipation Narcotics can cause constipation. Please take while taking narcotic pain medications to avoid constipation. Do not take if having loose stools. Reasons: Constipation 30 capsule 04/01/20 25 Active atorvastatin (Lipitor) 40 MG tablet Take 1 (one) tablet by mouth at bedtime Active HYDROcodone-jay taminophen ([place]) 5-325 MG tabletIndicatio ns:Failure of total knee replacement, initial encounter Take 1 (one) tablet to 2 (two) tablets by mouth every 6 hours as needed for Pain 40 tablet 04/20/20 25 Active atorvastatin (Lipitor) 80 MG tablet atorvastatin 80 mg tablet 04/06/20 24 025 Discontinu ed(List Clean-Up) buPROPion XL 24hr (Wellbutrin-XL) 300 MG tablet bupropion HCl 300 mg tablet extended release 24 hr 025 Discontinu ed(List Clean-Up) HYDROcodone-jay taminophen ([place]) 5-325 MG tabletIndicatio ns:Failure of total knee replacement, initial encounter Take 1 (one) tablet to 2 (two) tablets by mouth every 6 hours as needed for Pain 40 tablet 04/01/20 25 025 Discontinu ed(Reorder ) doxycycline monohydrate 100 MG tabletIndicatio ns:surgical prophylaxis Take 1 (one) tablet by mouth 2 times daily for 21 days Reasons: surgical prophylaxis 42 tablet 04/01/20 25 025 Active Problems Problem Noted Date Diagnosed Date HTN (hypertension) 04/01/2025 Type 2 diabetes mellitus, wi thout long-term current use of insulin 04/01/2025 Sleep apnea 04/01/2025 Failure of total knee replacement, initial encou nter 04/01/2025 Encounters Date Type Department Care Team Description 04/20/2025 Refill [facility] - Orthopedic Surgery [address] [place] [phone] Domi Pinon RN MEDICATION REFILL 04/19/2025 12:15 PM CDT Office Visit [facility] - Orthopedic Surgery [address] [place] [phone] Dennis Kenny MD 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); Closed displaced fracture of right patella with routine healing, unspecified fracture morphology, subsequent encounter 04/19/2025 11:43 AM CDT - 04/19/2025 11:59 PM CDT Hospital Encounter [facility] - Orthopedics [address], [address] [place] [phone] Dennis Kenny MD Discharge Disposition: Home or Self Care 04/19/2025 Travel 04/14/2025 Orders Only [facility] - Orthopedic Surgery [address] [place] [phone] Dennis Kenny MD History of total right knee replacement 04/13/2025 1:00 PM CDT Office Visit [facility] - Orthopedic Surgery [address] [place] [phone] Dennis Kenny MD History of total right knee replacement (Primary Dx) 04/13/2025 12:48 PM CDT - 04/13/2025 11:59 PM CDT Hospital Encounter [facility] - Orthopedics [address] [place] [address], [facility] [address] [place] [phone] Dennis Kenny MD Discharge Disposition: Home or Self Care 04/13/2025 Travel 04/06/2025 10:15 AM CDT Office Visit [facility] - Orthopedic Surgery [address] [place] [phone] Dennis Kenny MD History of total right knee replacement (Primary Dx) 04/06/2025 10:10 AM CDT - 04/06/2025 11:59 PM CDT Hospital Encounter [facility] - Orthopedics [address] [place] [address], [facility] [address] [place] [phone] Dennis Kenny MD Discharge Disposition: Home or Self Care 04/06/2025 Travel 04/04/2025 Orders Only [facility] - Orthopedic Surgery [address] [place] [phone] Dennis Kenny MD History of total right knee replacement 04/01/2025 10:02 AM CDT Anesthesia Event [facility] [address] [place] [phone] Artie Nicholson MD Carter, Jeffrey D, MD 04/01/2025 9:47 AM CDT - 04/01/2025 1:22 PM CDT Surgery [facility] [address] [place] [address] Dennis Kenny MD REVISION TOTAL KNEE ARTHROPLASTY WITH REPAIR OF EXTENSON MECHANISM DISRUPTION/PATELLAR TENDON DISRUPTION EQUIVALENT VERSUS OPEN REDUCTION INTERNAL FIXATION OF PATELLAR FRACTURE 04/01/2025 7:02 AM CDT - 04/02/2025 2:45 PM CDT Hospital Encounter [facility] 2 ORTHO/NEW VIS [address] [place] [address] Dennis Kenny MD Surgery General Discharge Disposition: Home Health Care [facility] 04/01/2025 Telephone [facility] - Orthopedic Surgery [address] [place] [phone] Kami Villanueva RN Follow-up 04/01/2025 Travel 03/22/2025 11:31 AM CDT - 03/22/2025 11:59 PM CDT Hospital Encounter [facility] [address] [place] [address] Dennis Kenny MD Discharge Disposition: Home or Self Care 03/22/2025 10:15 AM CDT Office Visit [facility] - Orthopedic Surgery [address] [place] [phone] Dennis Kenny MD Failed total knee arthroplasty, initial encounter (Primary Dx); Closed displaced fracture of right patella, unspecified fracture morphology, initial encounter 03/22/2025 10:03 AM CDT - 03/22/2025 11:30 AM CDT Hospital Encounter [facility] - Orthopedics [address] [place] [address], [address] [place] [phone] Dennis Kenny MD Discharge Disposition: Home or Self Care 03/22/2025 Orders Only [facility] - Orthopedic Surgery [address] [place] [phone] Domi Pinon, RN 03/22/2025 Orders Only [facility] - Orthopedic Surgery [address] [place] [phone] Domi Pinon, RN History of total right knee replacement ; Acute pain of right knee 03/22/2025 Travel 03/21/2025 Orders Only [facility] - Orthopedic Surgery [address] [place] [phone] Dennis Kenny MD History of total right knee replacement 02/28/2025 Telephone [facility] - Orthopedic Surgery [address] [place] [phone] Domi Pinon, RN Appointment from Last 3 Months Social History Tobacco Use Types Packs/Day Years Used Date Smoking Tobacco: Former Cigarettes Smokeless Tobacco: Never Tobacco Cessation:Counseling Given: Not Answered Alcohol Use Standard Drinks/Week Comments Not Currently 0 (1 standard drink = 0.6 oz pur e alcohol) Overall Financial Resource Strain (CARDIA) Answe r Date Recorded How hard is it for you to pa y for the very basics like food, housing, medical care, and heating? Not hard at all 04/01/2025 PHQ-2 Answer Date Recorded Patient Health Questionnaire-2 Score 0 04/27/2025 [facility] - Occupational Stress Questionnaire Answer Date Recorded Do you feel stress - tense, restless, nervous, or anxious, or unable to sleep at night because your mind is troubled all the time - these days? To some extent 04/01/2025 Hunger Vital Sign Answer Date Recorded Within the past 12 months, y ou worried that your food would run out before you got the money to buy more. Never true 04/01/20 25 Within the past 12 months, t he food you bought just didn't last and you didn't have money to get more. Never true 04/01/2025 PRAPARE - Transportation Answer Date Re corded In the past 12 months, has l ack of transportation kept you from medical appointments or from getting medications? No 03/14 In the past 12 months, has l ack of transportation kept you from meetings, work, or from getting things needed for daily living? No 04/01/2025 Housing Stability Vital Sign Answer Dominick e Recorded In the last 12 months, was t here a time when you were not able to pay the mortgage or rent on time? No 04/01/2025 In the past 12 months, how m any times have you moved where you were living? 1 04/01/2025 At any time in the past [address] [facility], were you homeless or living in a nursing home (including now)? No 04/01/2025 Sex and Gender Information Value Date Recorded Sex Assigned at Not on file Legal Sex Male 12:52 PM CDT Gender Identity Not on file Sexual Orientation Not on file Last Filed Vital Signs Vital Sign Reading Time Taken Comments Blood Pressure 93/57 04/02/2025 11:39 AM CDT Pulse 71 04/02/2025 11:39 AM CDT Temperature 36.4 C (97.6 F) 04/02/2025 11:39 AM CDT Respiratory Rate 17 04/02/2025 11:39 AM CDT Oxygen Saturation 96% 04/02/2025 11:39 AM CDT Inhaled Oxygen Concentration - - Weight 113.4 kg (250 lb) 04/01/2025 4:06 PM CDT Height 177.8 cm (5' 10) 04/01/2025 4:06 PM CDT Body Mass Index 35.87 04/01/2025 4:06 PM CDT Plan of Treatment Upcoming Encounters Date Type Department Care Team (Late st Contact Info) Description 05/04/2025 10:15 AM CDT Office Visit [facility] - Orthopedic Surgery [address] [place] [phone] Dennis Kenny MD [address] [place] [phone] 07/05/2025 10:15 AM CDT Office Visit [facility] - Orthopedic Surgery [address] [place] [phone] Dennis Kenny MD [address] [place] [address] Health Maintenance Due Date Last Done Comments COLOGUARD (AGES 45-75) - COL ON CA SCREENING 1954 COLON MONITORING 1954 COLONOSCOPY - COLON CA SCREENING 1954 CT COLONOGRAPHY - COLON CA SCREENING 1954 Colorectal Cancer Screening 1954 FIT - COLON CA SCREENING 1954 FLEX SIG - COLON CA SCREENING 1954 HEPATITIS C SCREENING 12/31/1971 DTAP/TDAP/TD VACCINES (1 - Tdap) 1973 PNEUMOCOCCAL VACCINE 50+ (1 of 2 - PCV) 1973 ZOSTER VACCINE (1 of 2) 01/05/2004 Respiratory Syncytial Virus (RSV) Vaccine Pt: or over 60 yrs (1 - Risk 60-74 years 1-dose series) 2014 AAA SCREENING 2019 COVID-19 VACCINE (2 - 2023-2 5 season) 2024 12/21/2020 DIABETES - URINE PROTEIN SCREENING 10/13/2024 MEDICARE AWV CALENDAR YEAR 2024 DIABETES RETINOPATHY SCREENING 04/01/2025 DIABETES-FOOT EXAM WITH MONOFILAMENT 04/01/2025 INFLUENZA VACCINE (#1) 2025 8, 07/01/2017 DIABETES-HGB A1C 09/21/2025 03/22/2025 DIABETES-SERUM CREATININE 04/02/20262024, 03/22/2025 DEPRESSION SCREENING Completed 03/22/2025 HEPATITIS B VACCINE Aged Out No longe r eligible based on patient's age to complete this topic HIB VACCINE Aged Out No longer eligi ble based on patient's age to complete this topic HPV VACCINE Aged Out No longer eligi ble based on patient's age to complete this topic MENINGOCOCCAL (Group B) VACCINE SHARED DECISION-MAKING Aged Out No longer eligible based on patient's age to complete this topic MENINGOCOCCAL GROUPS A/C/Y/W VACCINE Aged Out No longer eligible b ased on patient's age to complete this topic Medical Devices Implanted Type Area Bottle Feeder Device Identifier Shelf Expiration Date Model / Serial / Lot Ins Tib 4 16mm Kn X3 Crcte Sub Trthln Implanted:Qty : 1 on 04/01/2025 by Dennis Kenny MD at [facility] Right: Knee [employer] [id number] 02/16/2028 [id number] / / [id number] Cable Stainless Steel W/Clamp Implanted:Qty : 1 on 04/01/2025 by Dennis Kenny MD at [facility] Right: Knee [employer] [facility] 01/13/2030 [id number] / / Procedures Procedure Name Priority Date/Time Associated Diagnosis Comments XR KNEE RIGHT 2VW OR LESS Routine 04/19/2025 12:29 PM CDT Status post revision of total replacement of right knee XR KNEE RIGHT 2VW OR LESS Routine 04/06/2025 10:18 AM CDT History of total right knee replacement IMAGING/RADIOLOGY/XR AY RESULTS ORDER 04/04/2025 5:55 PM CDT GLUCOSE - POINT OF CARE Routine 04/02/2025 11:44 AM CDT GLUCOSE - POINT OF CARE Routine 04/02/2025 8:51 AM CDT CBC W/O DIFFERENTIAL AM Draw 04/02/2025 3:49 AM CDT Failure of total knee replacement, initial encounter BASIC METABOLIC PANEL (CALCIUM TOTAL) AM Draw 04/02/2025 3:49 AM CDT Failure of total knee replacement, initial encounter GLUCOSE - POINT OF CARE Routine 04/01/2025 5:11 PM CDT GLUCOSE - POINT OF CARE Routine 04/01/2025 2:31 PM CDT XR KNEE RIGHT 2VW OR LESS Routine 04/01/2025 1:25 PM CDT Failure of total knee replacement, initial encounter GLUCOSE - POINT OF CARE Routine 04/01/2025 1:07 PM CDT FL KIMBERLY SURGERY Routine 04/01/2025 11:46 AM CDT Pain CULTURE FLUID+GRAM STAIN STAT 04/01/2025 10:46 AM CDT Diagnosis unknown CULTURE ANAEROBE STAT 04/01/2025 10:4 6 AM CDT Diagnosis unknown ENDOTRACHEAL TUBE NOTE Routine 04/01/2025 10:16 AM CDT HI REVISE KNEE JOINT REPLACE,ALL PARTS 04/01/2025 9:41 AM CDT Diagnosis unknown Special Needs NEEDS C-ARM, NATHAN TABLE, ROOM 3, DUFF AND NEPHEW REP (CONSTANTINE [phone]) NOTIFIED BY SURGEON PER OFFICE(CY) 03/23 TM-REP EMAILED 03/24, 03/28 WC--TIME CHANGE--REP. NOTIFIED PER OFFICE (GANESH)--03/25 KW -REP EMAILED 03/31 WC PERIPHERAL BLOCK Routine 04/01/2025 9:32 AM CDT GLUCOSE - POINT OF CARE Routine 04/01/2025 7:41 AM CDT TYPE + SCREEN PANEL Routine 04/01/2025 7 :34 AM CDT TYPE + SCREEN PANEL Routine 03/22/2025 1 1:46 AM CDT History of total right knee replacement Acute pain of right knee CBC W AUTO DIFFERENTIAL Routine 03/22/2025 11:46 AM CDT Failed total knee arthroplasty, initial encounter C-REACTIVE PROTEIN Routine 03/22/2025 11 :46 AM CDT Failed total knee arthroplasty, initial encounter ERYTHROCYTE SEDIMENTATION RATE Routine 03/22/2025 11:46 AM CDT Failed total knee arthroplasty, initial encounter HEMOGLOBIN A1C Routine 03/22/2025 11:46 AM CDT History of total right knee replacement Acute pain of right knee TRANSFERRIN Routine 03/22/2025 11:46 AM CDT History of total right knee replacement Acute pain of right knee URINALYSIS REFLEX MICROSCOPIC REFLEX CULTURE Routine 03/22/2025 11:46 AM CDT History of total right knee replacement Acute pain of right knee FRUCTOSAMINE Routine 03/22/2025 11:46 AM CDT History of total right knee replacement Acute pain of right knee BASIC METABOLIC PANEL (CALCIUM TOTAL) Routine 03/22/2025 11:46 AM CDT History of total right knee replacement Acute pain of right knee CULTURE MSSA/MRSA Routine 03/22/2025 11: 46 AM CDT History of total right knee replacement Acute pain of right knee XR KNEE RIGHT 4VW OR MORE Routine 03/22/2025 10:07 AM CDT History of total right knee replacement from Last 3 Months Results * XR Knee Right 2Vw or Less (04/19/2025 12:29 PM CDT) Only the most recent of3 resultswithin the time period is included. Anatomical Region Laterality Modality Lower Extremity Radiographic Kimberley ging 04/19/2025 1:06 PM CDT Impressions 04/19/2025 1:07 PM CDT IMPRESSION: No appreciable interval change. > Interpreting Provider: Krupa Bailey MD on 04/19/2025 1:07 PM Narrative 04/19/2025 1:07 PM CDT PROCEDURE: XR KNEE RIGHT 2VW OR LESS DATE/TIME OF EXAM: 04/19/2025 12:29 PM CLINICAL INFORMATION: None relevant/not provided if blank. Indication: Z96.651: Status post revision of total replacement of right knee Additional History: COMPARISON: 04/06/2025 FINDINGS: A right knee arthroplasty is again seen. There is a cerclage wire in the patella. There is adjacent heterotopic ossification. There are anterior skin nataliya. Procedure Note Krupa Bailey MD - 04/19/2025 PROCEDURE: XR KNEE RIGHT 2VW OR LESS DATE/TIME OF EXAM: 04/19/2025 12:29 PM CLINICAL INFORMATION: None relevant/not provided if blank. Indication: Z96.651: Status post revision of total replacement of right knee Additional History: COMPARISON: 04/06/2025 FINDINGS: A right knee arthroplasty is again seen. There is a cerclage wire in the patella. There is adjacent heterotopic ossification. There are anterior skin nataliya. IMPRESSION: No appreciable interval change. > Interpreting Provider: Krupa Bailey MD on 04/19/2025 1:07 PM Dennis Kenny MD DIAGNOSTIC IMAGING ORDERABL ES Final Result * IMAGING/RADIOLOGY/XRAY RESULTS ORDER (04/04/2025 5:55 PM CDT) Anatomical Region Laterality Modality Other Narrative 04/04/2025 5:55 PM CDT Ordered by an unspecified provider. us Scanned Document IMAGING Final Result * (ABNORMAL) GLUCOSE - POINT OF CARE (04/02/2025 11:44 AM CDT) Only the most recent of6 resultswithin the time period is included. [facility] Glucose WB/POC 140(H) 70 - 99 mg/dL 04/02/2025 11:54 AM CDT [facility] Specimen Type Arterial/C apillary 04/02/2025 11:54 AM CDT [facility] Blood BLOOD SPECIMEN / Unknown 04/02/2025 11:44 AM CDT 04/02/2025 11:54 AM CDT Dennis Kenny MD LAB - POINT OF CARE ORDERAB LES Final Result Performing Organization Address City/State/[facility] Co de Phone Number [facility] [address] [place] [address] * (ABNORMAL) CBC W/O DIFFERENTIAL (04/02/2025 3:49 AM CDT) [facility] WBC 13.2(H) 4.0 - 10.7 x10E9/L 04/02/2025 5:25 AM CDT [facility] RBC Count 3.79(L) 4.30 - 5.80 x10E12/L 04/02/2025 5:25 AM CDT [facility] Hemoglobin 11.1(L) 13.3 - 17.5 g/dL 04/02/2025 5:25 AM CDT [facility] Hematocrit 34.7(L) 38.7 - 51.1 % 04/02/2025 5:25 AM CDT [facility] MCV 91.6 80.0 - 98.0 fL 04/02/2025 5:25 AM CDT [facility] MCH 29.3 26.7 - 33.6 pg 04/02/2025 5:25 AM CDT [facility] MCHC 32.0 31.7 - 36.3 g/dL 04/02/2025 5:25 AM CDT [facility] RDW-CV 14.6 11.3 - 14.8 % 04/02/2025 5:25 AM CDT [facility] Platelet Count 235 150 - 420 x10E9/L 04/02/2025 5:25 AM CDT [facility] MPV 10.8 7.8 - 11.4 fL 04/02/2025 5:25 AM CDT [facility] Blood BLOOD SPECIMEN / Unknown Lab Venipuncture / Unknown 04/02/2025 3:49 AM CDT 04/02/2025 5:13 AM CDT Dennis Kenny MD LAB - HEMATOLOGY ORDERABLES Final Result Performing Organization Address City/State/[facility] Co de Phone Number [facility] [address] [place] [address] * (ABNORMAL) BASIC METABOLIC PANEL (CALCIUM TOTAL) (04/02/2025 3:49 AM CDT) Only the most recent of2 resultswithin the time period is included. Glucose 112(H) 70 - 99 mg/dL 04/02/2025 6:01 AM CDT [facility] Sodium 138 136 - 145 mmol/L 04/02/2025 6:01 AM CDT [facility] Potassium 4.6 3.5 - 5.1 mmol/L 04/02/2025 6:01 AM CDT [facility] Chloride 108(H) 98 - 107 mmol/L 04/02/2025 6:01 AM CDT [facility] CO2 21(L) 22 - 29 mmol/L 04/02/2025 6:01 AM T [facility] Calcium 8.6 8.4 - 10.4 mg/dL 04/02/2025 6:01 AM CDT [facility] Anion Gap 9 6 - 16 mmol/L 04/02/2025 6:01 AM CDT [facility] BUN 14 7 - 26 mg/dL 04/02/2025 6:01 AM CDT [facility] Creatinine 1.02 0.72 - 1.25 mg/dL 04/02/2025 6:01 AM CDT [facility] eGFR by CKD-EPI 79(L) >=90 mL/min/1.7 3 m2 04/02/2025 6:01 AM CDT [facility] Blood BLOOD SPECIMEN / Unknown Lab Venipuncture / Unknown 04/02/2025 3:49 AM CDT 04/02/2025 5:13 AM CDT us Dennis Kenny MD LAB - CHEMISTRY ORDERABLES Final Result Performing Organization Address [facility] Co de Phone Number [facility] [address] [place] [phone] * FL Kimberly Surgery (04/01/2025 11:46 AM CDT) Narrative [facility] - 04/01/2025 12:12 PM CDT For details of this study, please see the providers note. us Dennis Kenny MD FLUOROSCOPY ORDERABLES Alexia l Result Performing Organization Address [facility] Co de Phone Number [facility] [address] [place] [phone] * CULTURE FLUID+GRAM STAIN (04/01/2025 10:46 AM CDT) Culture No growth ALBERT 04/04/2025 6:39 PM CDT [facility] Gram Stain Rare Polymorphonuclear cells 04/04/2025 6:39 PM CDT [facility] Gram Stain No organisms seen 025 6:39 PM CDT [facility] Microbiology SYNOVIAL FLUID / Unknown Collection / Unknown 04/01/2025 10:46 AM CDT 04/01/2025 2:49 PM CDT Comment:Pre-op diagnosis: Diagnosis unknown [R69] Narrative [facility] - 04/04/2025 6:39 PM CDT Surgical Description: Right Knee Synovial Fluid Dennis Kenny MD LAB - MICROBIOLOGY ORDERABL ES Final Result Performing Organization Address [facility] de Phone Number [facility] [address] [place] [address], [facility] [phone] * CULTURE ANAEROBE (04/01/2025 10:46 AM CDT) Culture No anaerobic organisms isolated ALBERT 04/06/2025 1:43 PM CDT [facility] Microbiology SYNOVIAL FLUID / Unknown Collection / Unknown 04/01/2025 10:46 AM CDT 04/01/2025 2:49 PM CDT Comment:Pre-op diagnosis: Diagnosis unknown [R69] Narrative [facility] - 04/06/2025 1:43 PM CDT Surgical Description: Right Knee Synovial Fluid Dennis Kenny MD LAB - MICROBIOLOGY ORDERABL ES Final Result Performing Organization Address [facility] Phone Number [facility] [address] [place] [address], [facility] [phone] * ETT LINE PERFORMABLE (04/01/2025 10:16 AM CDT) Narrative Chetna Guzman APRN-CRNA - 04/01/2025 10:16 AM CDT Chetna Guzman APRN-CARDROOM ATTENDANT 04/01/2025 10:17 AM Endotracheal Tube Placement: Patient Location: OR. Intubation Event Date/Time: 04/01/2025 10:10 AM Procedure: intubation (35040) Procedure Section: Sedation: under general anesthesia. Indications for Airway Management: anesthesia Induction: modified rapid sequence Patient Position: sniffing and supine Mask Ventilation: not attempted. Blade Type: Moreira Blade Size: 2 Laryngoscopy View: grade 1 (full cords) Intubation Adjuncts: stylet Tube: endotracheal tube Placement: oral Tube type: cuff - inflated Tube Size (MM): 8 Depth of Insertion (CM): 23 Measured From: gums Cuff volume (mL): 7 Cuff Inflated With: air Number of Attempts: 1. Placement Verified By: bilateral breath sounds, direct visualization and CO2 monitor Tube secured with: adhesive tape. Dentition unchanged? Yes Difficult Airway? No. Procedure Start Time: 04/01/2025 10:10 AM. Staff Section Anesthesia Provider: Chetna Guzman APRN-CRNA, Performed the procedure us Artie Nicholson MD GENERAL ANESTHESIA ORDERABL ES Final Result * Peripheral Nerve Block (04/01/2025 9:32 AM CDT) Narrative Artie Nicholson MD - 04/01/2025 9:32 AM CDT Artie Nicholson MD 04/01/2025 9:44 AM Peripheral Nerve Block Procedure: Peripheral Nerve Block Patient Location: Pre-op Preprocedure Section: Indications: at surgeon's request and postop pain management. Pre-anesthetic Checklist: Patient identified, IV Checked, Site examined and clear, Risks and benefits discussed, Surgical consent verified, Monitors and equipment, Time-out performed, Informed consent obtained, Pre-op evaluation done, Questions answered/anesthesia questions answered, Allergies reviewed and Removal hand/wrist jewelry Monitors: BP, Pulse Ox and EKG. Patient Condition: sedated, meaningful contact maintained throughout procedure Patient Position: supine Patient Sedated? Yes Sedation Type: mild Sedation Agents: fentaNYL (PF) (SUBLIMAZE) injection - Intravenous 100 mcg - 04/01/2025 9:33:00 AM Procedure Section Laterality: right Block Performed: Adductor Canal Prep: Chloraprep Strerile Field: gloves, mask, hat/cap, patient draped and sterile ultrasound sleeve Needle Type: Echogenic insulated Needle Gauge: 20 Needle Length: 100 mm Catheter? No Ultrasound Guided? Yes Technique: in plane Visualization: Preliminary scan performed, Important anatomical structures identified, Needle tip visualized throughout the procedure, Target identified, No intraneural or intravascular puncture occurred, Ultrasound image in chart, Local visualized surrounding nerve on ultrasound and Hydrodissection utilized Injection was made incrementally with constant monitoring and aspirations every 5 mL's Injection Assessment: Slow fractionated injection Block Agents or Additives used? Yes Block agents used: bupivacaine 0.5% - EPINEPHrine 1:200,000 (PF) injection - Infiltration 25 mL - 04/01/2025 9:44:00 AM Procedure Tolerance: tolerated well Assessment: completed Procedure Start Time: 04/01/2025 9:33 AM. Procedure End Time: 04/01/2025 9:44 AM. Procedure Total Time: 11 minutes. Staff Section Anesthesia Provider: Artie Nicholson MD, Performed the procedure Artie Nicholson MD GENERAL ANESTHESIA ORDERABL ES Edited Result - Final * TYPE + SCREEN PANEL (04/01/2025 7:34 AM CDT) Only the most recent of2 resultswithin the time period is included. ABO Rh A POS 04/01/2025 8:30 AM CDT [facility] Comment:History checked. Antibody Screen NEG 8:30 AM CDT [facility] Blood Bank BLOOD SPECIMEN / Unknown Lab Venipuncture / Unknown 04/01/2025 7:34 AM CDT 04/01/2025 7:54 AM CDT Dennis Kenny MD LAB - BLOOD BANK ORDERABLES Final Result Performing Organization Address [facility]/ZIP Co de Phone Number [facility] [address] [phone] * CULTURE MSSA/MRSA (03/22/2025 11:46 AM CDT) Culture Negative for Staphylococcus aureus (MRSA/MSSA) 03/23/2025 4:30 PM CDT [facility] Microbiology SPECIMEN FROM NASAL FOSSAE / Unknown Collection / Unknown 03/22/2025 11:46 AM CDT 03/22/2025 11:53 AM CDT Dennis Kenny MD LAB - MICROBIOLOGY ORDERABL ES Final Result [facility] [address] [place] [phone] * URINALYSIS REFLEX MICROSCOPIC REFLEX CULTURE (03/22/2025 11:46 AM CDT) Color UA Yellow Yellow, Straw 03/22/2025 12:18 PM CDT [facility] Clarity UA Clear Clear 03/22/2025 12:18 PM CDT [facility] Glucose UA Normal Normal 03/22/2025 12:18 PM CDT [facility] Bilirubin UA Negative Negative 03/22/2025 12:18 PM CDT [facility] Ketone UA Negative Negative 03/22/2025 12:18 PM CDT [facility] Specific [place] UA 1.016 1.005 - 1.030 03/22/2025 12:18 PM CDT [facility] Blood UA Negative Negative 03/22/2025 12:18 PM CDT [facility] pH UA 6.0 5.0 - 8.0 03/22/2025 12:18 PM CDT [facility] Protein UA Negative Negative 03/22/2025 12:18 PM CDT [facility] Urobilinogen UA Normal Normal mg/dL 03/22/2025 12:18 PM CDT [facility] Nitrite UA Negative Negative 03/22/2025 12:18 PM CDT [facility] Leukocyte Esterase UA Negative Negative 03/22/2025 12:18 PM CDT [facility] Reflex Status Culture not indicated 03/22/2025 12:18 PM CDT [facility] Urine Microscopy Urine microscopy not indicated 03/22/2025 12:18 PM CDT [facility] Urine URINE SPECIMEN OBTAINED BY CLEAN CATCH PROCEDURE / Unknown Collection / Unknown 03/22/2025 11:46 AM CDT 03/22/2025 11:53 AM CDT Narrative [facility] - 03/22/2025 12:18 PM CDT Dennis Kenny MD LAB - URINALYSIS ORDERABLES Final Result [facility] [address] [place] [id number] * C-REACTIVE PROTEIN (03/22/2025 11:46 AM CDT) C-Reactive Protein 0.07 <=0.50 mg/dL 03/22/2025 12:45 PM CDT [facility] Blood BLOOD SPECIMEN / Unknown Lab Venipuncture / Unknown 03/22/2025 11:46 AM CDT 03/22/2025 11:53 AM CDT Dennis Kenny MD LAB - CHEMISTRY ORDERABLES Final Result [facility] [address] [place] [address] * TRANSFERRIN (03/22/2025 11:46 AM CDT) Transferrin 260 174 - 382 mg/dL 03/22/2025 12:44 PM CDT [facility] Blood BLOOD SPECIMEN / Unknown Lab Venipuncture / Unknown 03/22/2025 11:46 AM CDT 03/22/2025 11:53 AM CDT Dennis Kenny MD LAB - CHEMISTRY ORDERABLES Final Result Performing Organization Address City/[facility] Co de Phone Number [facility] [address] [place] [address] * HEMOGLOBIN A1C (03/22/2025 11:46 AM CDT) Pathologist [facility] Hemoglobin A1c 5.4 <5.7 % 03/22/2025 12:34 PM CDT [facility] Estimated Average Glucose 108 mg/dL 03/22/2025 12:34 PM CDT [facility] Blood BLOOD SPECIMEN / Unknown Lab Venipuncture / Unknown 03/22/2025 11:46 AM CDT 03/22/2025 11:53 AM CDT Narrative [facility] - 03/22/2025 12:34 PM CDT HbA1c Interpretation: Normal: < 5.7% Pre-diabetes: 5.7-6.4% Diabetes: Equal to or greater than 6.5% Test results diagnostic of diabetes should be repeated for confirmation. Treatment target values recommended by ADA and other clinical organizations should be used to evaluate metabolic control in patients. This test should not replace glucose testing for patients with Type 1 diabetes, pediatric patients, or women. Falsely low HbA1c results may be observed in patients with clinical conditions that shorten erythrocyte life span or decrease mean erythrocyte age such as the presence of unstable hemoglobin variants, elevated hemoglobin F level or other causes of hemolytic anemia. HbA1c may not accurately reflect glycemic control when clinical conditions that affect erythrocyte survival are present. Severe Iron deficiency anemia may yield falsely high results. Hemoglobin A1c assay should not be used to diagnose or monitor diabetes in patients with malignancy, recent blood transfusion, chronic kidney or liver disease. This method may yield falsely low results when hemoglobin (HbF) exceeds 5% in the specimen. The Cano Alinity assay for the measurement of HbA1c is a National Glycohemoglobin Standardization Program (NGSP) certified method. Dennis Kenyn MD LAB - CHEMISTRY ORDERABLES Final Result Performing Organization Address [facility] de Phone Number [facility] [address] [place] [address] * FRUCTOSAMINE (03/22/2025 11:46 AM CDT) Pathologist [facility] Fructosamine 246 205 - 285 umol/L 03/24/2025 12:26 AM CDT [facility] [email or web address] ([facility]) Comment: INTERPRETIVE INFORMATION: Fructosamine Variations in levels of serum proteins (albumin and immunoglobulins) may affect fructosamine results. Performed By: [employer] [address] [place] [address] Bonus Clerk: Marlo Ogden MD, PhD CLIA Number: [id number] Blood BLOOD SPECIMEN / Unknown Lab Venipuncture / Unknown 03/22/2025 11:46 AM CDT 03/22/2025 11:53 AM CDT Dennis Kenny MD LAB - CHEMISTRY ORDERABLES Final Result Performing Organization Address [facility] de Phone Number [facility] [email or web address] [facility]) [address] [place] [address] * ERYTHROCYTE SEDIMENTATION RATE (03/22/2025 11:46 AM CDT) Pathologist [facility] Erythrocyte Sedimentation Rate Automated 16 0 - 20 MM/HR 03/22/2025 12:19 PM CDT [facility] Blood BLOOD SPECIMEN / Unknown Lab Venipuncture / Unknown 03/22/2025 11:46 AM CDT 03/22/2025 11:53 AM CDT Dennis Kenny MD LAB - HEMATOLOGY ORDERABLES Final Result Performing Organization Address [facility] de Phone Number [facility] [address] [place] [address] * (ABNORMAL) CBC W/ DIFFERENTIAL (03/22/2025 11:46 AM CDT) WBC 10.9(H) 4.0 - 10.7 x10E9/L 03/22/2025 12:13 PM CDT [facility] RBC Count 4.83 4.30 - 5.80 x10E12/L 03/22/2025 12:13 PM CDT [facility] Hemoglobin 14.3 13.3 - 17.5 g/dL 03/22/2025 12:13 PM CDT [facility] Hematocrit 44.3 38.7 - 51.1 % 03/22/2025 12:13 PM CDT [facility] MCV 91.7 80.0 - 98.0 fL 03/22/2025 12:13 PM CDT [facility] MCH 29.6 26.7 - 33.6 pg 03/22/2025 12:13 PM CDT [facility] MCHC 32.3 31.7 - 36.3 g/dL 03/22/2025 12:13 PM CDT [facility] RDW-CV 13.8 11.3 - 14.8 % 03/22/2025 12:13 PM CDT [facility] Platelet Count 298 150 - 420 x10E9/L 03/22/2025 12:13 PM CDT [facility] MPV 10.2 7.8 - 11.4 fL 03/22/2025 12:13 PM CDT [facility] Neutrophil % 49.6 41.0 - 74.0 % 03/22/2025 12:13 PM CDT [facility] Lymphocyte % 32.0 17.0 - 47.0 % 03/22/2025 12:13 PM CDT [facility] Monocyte % 9.8 3.0 - 11.0 % 03/22/2025 12:13 PM CDT [facility] Eosinophil % 7.9(H) 0.0 - 7.0 % 03/22/2025 12:13 PM CDT [facility] Basophil % 0.2 0.0 - 1.6 % 03/22/2025 12:13 PM CDT [facility] Immature Granulocytes % 0.5 0.0 - 1.0 % 03/22/2025 12:13 PM CDT [facility] Neutrophil Absolute 5.39 1.60 - 7.50 x10E9/L 03/22/2025 12:13 PM CDT [facility] Lymphocyte Absolute 3.48 1.00 - 4.40 x10E9/L 03/22/2025 12:13 PM CDT [facility] Monocyte Absolute 1.06(H) 0.15 - 1.00 x10E9/L 03/22/2025 12:13 PM CDT [facility] Eosinophil Absolute 0.86(H) 0.00 - 0.60 x10E9/L 03/22/2025 12:13 PM CDT [facility] Basophil Absolute 0.02 0.00 - 0.13 x10E9/L 03/22/2025 12:13 PM CDT [facility] Blood BLOOD SPECIMEN / Unknown Lab Venipuncture / Unknown 03/22/2025 11:46 AM CDT 03/22/2025 11:53 AM CDT us Dennis Kenny MD LAB - HEMATOLOGY ORDERABLES Final Result Performing Organization Address City/State/[facility] Co de Phone Number [facility] [address] [place] [address] * XR Knee Right 4Vw or More (03/22/2025 10:07 AM CDT) Anatomical Region Laterality Modality Lower Extremity Radiographic Kimberley ging 03/22/2025 10:1 4 AM CDT Narrative 03/22/2025 10:35 AM CDT PROCEDURE: XR KNEE RIGHT 4VW OR MORE DATE/TIME OF EXAM: 03/22/2025 10:08 AM CLINICAL INFORMATION: None relevant/not provided if blank. Indication: Z96.651: History of total right knee replacement Additional History: FINDINGS/IMPRESSION: Displaced patellar fracture is again seen. Superior pole of the patella is markedly displaced. Small joint effusion is seen. Postoperative appearance of right knee arthroplasty is seen without evidence of periprosthetic fracture or lucency. Edited by Magali Cruz on 03/22/2025 10:20 AM > Interpreting Provider: Lorenzo Mora MD on 03/22/2025 10:35 AM Procedure Note Lorenzo Mora MD - 03/22/2025 PROCEDURE: XR KNEE RIGHT 4VW OR MORE DATE/TIME OF EXAM: 03/22/2025 10:08 AM CLINICAL INFORMATION: None relevant/not provided if blank. Indication: Z96.651: History of total right knee replacement Additional History: FINDINGS/IMPRESSION: Displaced patellar fracture is again seen. Superior pole of the patellais markedly displaced. Small joint effusion is seen. Postoperativeappearance of right knee arthroplasty is seen without evidence of periprosthetic fracture or lucency. Edited by Magali Cruz on 03/22/2025 10:20 AM > Interpreting Provider: Lorenzo Mora MD on 03/22/2025 10:35 AM Dennis Kenny MD DIAGNOSTIC IMAGING ORDERABL ES Final Result from Last 3 Months Insurance [employer] SELF PAY NO INSURANCE Member Subscriber Plan / Payer (Ef fective for All Dates) Name:Riley Montes Member ID:Not on file Relation to Subscriber:Not on file Name:RILEY MONTES Subscriber ID:Not on file (Home) Address: [address] [place] [id number] Payer ID:Not on file Group ID:Not on file Type:Self Pay Address: [place], [place] [employer] MED[employer]ARE ADV HMO & PPO Advance Directives * Full Code (Latest Code Status on File) Date Activated Date Inactivated Comments 04/01/2025 2:22 PM 04/02/2025 3:51 PM Care Teams [facility] [facility] Supervisor Relationship Specialty Start Date End Date Robb Sepulveda MD [address] [place] [address] PCP - General Family Medicine 03/22/25
--- OUTSIDE RECORDS SUMMARY | 2025-04-28 10:57 | XMS_ITS | Patient Health Record ---
Author Organization [facility] [employer] Address [address] [place] [address] Care Team Providers Care Perishable Fruit Inspector Name Role Phone Robb Sepulveda MD Primary Care Provider Torrie Mendosa Unavailable [phone] Allergies No Known Allergies Reason For Referral No Information Medications Medication SIG (Take, Route, Frequency, Duration) Notes Start Date End Date Status Atorvastatin Calcium 80 MG Oral 04/24/2023 Unknown traZODone HCl 100 MG 1 tablet at bedtime Oral Once a day; Duration: 90 days Active FLUoxetine HCl 20 MG 2 capsule Oral Once a day; Duration: 90 days Active tiZANidine HCl 2 MG Oral 04/24/2023 Unknown Rexulti 1 MG 1 tablet Orally Once a day; Duration: 30 days Active Tamsulosin HCl 0.4 MG Oral 04/24/2023 Unknown Losartan Potassium 50 MG Oral 04/24/2023 Unknown Metoprolol Tartrate 25 MG Oral 04/24/2023 Unknown Memantine HCl 10 MG Oral 04/24/2023 Active Immunizations Vaccine Route Administration Date Status Comme [...] Risk Notes Problem Chronic alcoholism in remission (551694872) Alcohol dependence, in remission (F10.21) Active confirmed Problem Severe recurrent major depression without psychotic features (14543790) Major depressive disorder, recurrent severe without psychotic features (F33.2) Active confirmed Problem Generalized anxiety disorder (07083125) Generalized anxiety disorder (F41.1) Active confirmed Problem Mild neurocognitive disorder (483011796) Mild neurocognitive disorder (G31.84) Active confirmed Vital Signs Heart Rate 65 /min 03/16/2025 Height-cm 177.80 cm 03/16/2025 Blood pressure diastolic 78 mm Hg 03/16/2025 Weight-kg 111.13 kg 03/16/2025 Height 70.00 in 03/16/2025 Blood pressure systolic 114 mm Hg 03/16/2025 Weight 245 lbs 03/16/2025 BMI 35.15 kg/m2 03/16/2025 Encounters Encounter Location Date Provider Diagnosis [facility] [employer] [facility] [address] [facility] [address] [place] [address] 05/11/2024 Torrie Kurilla Major depressive disorder, recurrent severe without psychotic features F33.2 ; Generalized anxiety disorder F41.1 and Alcohol dependence, in remission F10.21 [facility] [employer] [facility] [address] [facility] [address] [place] [address] 06/11/2024 Torrie Kurilla Major depressive disorder, recurrent severe without psychotic features F33.2 ; Generalized anxiety disorder F41.1 and Alcohol dependence, in remission F10.21 [facility] [employer] [facility] [address] [facility] [address] [place] [address] 07/09/2024 Torrie Kurilla Major depressive disorder, recurrent severe without psychotic features F33.2 ; Generalized anxiety disorder F41.1 and Alcohol dependence, in remission F10.21 [facility] [employer] [facility] [address] [place] [address] 08/06/2024 Torrie Kurilla [facility] [employer] [facility] [address] [place] [address] 08/10/2024 Torrie Kurilla Major depressive disorder, recurrent severe without psychotic features F33.2 ; Generalized anxiety disorder F41.1 ; Alcohol dependence, in remission F10.21 and Mild neurocognitive disorder G31.84 [facility] [employer] [place] [address] [place] [address] 09/24/2024 Torrie Kurilla Major depressive disorder, recurrent severe without psychotic features F33.2 ; Generalized anxiety disorder F41.1 ; Alcohol dependence, in remission F10.21 and Mild neurocognitive disorder G31.[address] [facility] [address] [place] [address] 11/05/2024 Torrie Kurilla Major depressive disorder, recurrent severe without psychotic features F33.2 ; Generalized anxiety disorder F41.1 ; Alcohol dependence, in remission F10.21 and Mild neurocognitive disorder G31.[address] [facility] [address] [place] [address] 12/15/2024 Torrie Kurilla Major depressive disorder, recurrent severe without psychotic features F33.2 ; Generalized anxiety disorder F41.1 ; Alcohol dependence, in remission F10.21 and Mild neurocognitive disorder G31.[address] [facility] [address] [place] [address] 01/05/2025 Torrie Kurilla Generalized anxiety disorder F41.1 ; Alcohol dependence, in remission F10.21 ; Major depressive disorder, recurrent severe without psychotic features F33.2 ; Mild neurocognitive disorder G31.84 ; Encounter for screening for depression Z13.31 and Encounter for screening for cardiovascular disorders Z13.[address] [facility] [address] [place] [address] 03/16/2025 Torrie Kurilla Generalized anxiety disorder F41.1 ; Major depressive disorder, recurrent severe without psychotic features F33.2 ; Alcohol dependence, in remission F10.21 ; Mild neurocognitive disorder G31.84 ; Encounter for screening for depression Z13.31 ; Negative depression screening Z13.31 and Encounter for screening for cardiovascular disorders Z13.6 [facility], [place] [address] [facility] [address] [place] [address] 05/24/2024 Torrie Kurilla Major depressive disorder, recurrent severe without psychotic features F33.2 [facility], [address] [facility] [address] [place] [address] 11/05/2024 Torrie Kurjose [facility], [place] [address] [facility] [address] [place] [address] 05/10/2024 Torrie Kurilla [facility] [address] [place] [address] 05/18/2024 Torrie Doyle Major depressive disorder, recurrent severe without psychotic features F33.2 [facility], [facility] [address] [place] [address] 09/24/2024 Torrie Doyle [facility], [facility] [address] [place] [address] 12/07/2024 Torrie Doyle [facility], [facility] [address] [place] [address] 12/13/2024 Torrie Doyle [facility], [facility] [address] [place] [address] 12/13/2024 Torrie Doyle [facility], [facility] [address] [place] [address] 12/15/2024 Torrie Doyle [facility], [facility] [address] [place] [address] 12/15/2024 Torrie Doyle [facility], [facility] [address] [place] [address] 02/03/2025 Torrie Doyle Major depressive disorder, recurrent severe without psychotic features F33.2 [facility], [facility] [address] [place] [address] 02/03/2025 Torrie Doyle Major depressive disorder, recurrent severe without psychotic features F33.2 [facility], [facility] [address] [facility] [address] [place] [address] 02/22/2025 Torrie Doyle Assessments Encounter Date Diagnosis (ICD Code) Assessment [...] common with first generation antipsychotics) and more. 02/03/2025 Major depressive disorder, recurrent severe without psychotic features (ICD-10 - F33.2) 02/03/2025 Major depressive disorder, recurrent severe without psychotic features (ICD-10 - F33.2) 03/16/2025 Major depressive disorder, recurrent severe without psychotic [...] Provider can order medication once approval received. 03/16/2025 Generalized anxiety disorder (ICD-10 - F41.1) 12/15/2024 [...] 12/15/2024 Generalized anxiety disorder (ICD-10 - F41.1) 01/05/2025 Alcohol dependence, in remission (ICD-10 - F10.21) 03/16/2025 Alcohol dependence, in remission (ICD-10 - F10.21) 11/05/2024 Generalized anxiety disorder (ICD-10 - F41.1) [...] can order medication once approval received. 11/05/2024 Alcohol dependence, in remission (ICD-10 - F10.21) 03/16/2025 Mild neurocognitive disorder (ICD-10 - G31.84) Memantine 10mg BID per PCP 12/15/2024 Alcohol dependence, in remission (ICD-10 - F10.21) 01/05/2025 Mild neurocognitive disorder (ICD-10 - G31.84) Memantine 10mg BID per PCP 01/05/2025 Encounter for screening for depression (ICD-10 - Z13.31) 03/16/2025 Encounter for screening for depression (ICD-10 - Z13.31) 12/15/2024 Mild neurocognitive disorder (ICD-10 - G31.84) Memantine 10mg BID per PCP 09/24/2024 Mild neurocognitive disorder (ICD-10 - G31.84) Memantine 10mg BID per PCP 11/05/2024 Mild neurocognitive disorder (ICD-10 - G31.84) Memantine 10mg BID per PCP 03/16/2025 Negative depression screening (ICD-10 - Z13.31) 01/05/2025 Encounter for screening for cardiovascular disorders (ICD-10 - Z13.6) 03/16/2025 Encounter for screening for cardiovascular disorders (ICD-10 [...] therapeutic effects of psychotropic medications. -Crisis prevention [place] [phone]. 12/15/2024 Other Continue off of Wellbutrin. Start [...] therapeutic effects of psychotropic medications. -Crisis prevention [place] [phone]. 01/05/2025 Other Stable, cont current medications -refills [...] therapeutic effects of psychotropic medications. -Crisis prevention [facility] 98. 03/16/2025 Other Increase trazodone to 100mg nightly for sleep -discussed fall risk and fall prevention Patient educated on all medications including potential [...] therapeutic effects of psychotropic medications. -Crisis prevention [facility] 98. Plan Of Treatment Next Appt Details Provider Name:Torrie tan, 06/15/2025 10:00:00 AM, [address], [place], [address], Insurance Providers Payer Name Payer Address Payer Phone Subscriber Number Group Number Insured Name Patient Relationship to Insured Coverage Start Date Coverage End Date [employer] Replacemen t/Advantag e - Ppo [address] [address] [place] [address] [id number] RILEY GONZALEZ Self - patient is the insured Medical (General) History Medical History History ICD Code Problems: Chronic alcoholism in remissio n Generalized anxiety disorder Moderately severe recurrent major depres adrian Severe recurrent major depression withou t psychotic features ,
[2025-04-28 11:22] LABS: Hematocrit 39.2 % (42.0-52.0); Hemoglobin 12.3 g/dL (14.0-18.0); Immature Granulocyte Percent A 0.4 % (0-0.5); Lymphocytes Absolute Auto 3.12 K/mm3 (0.9-3.2); Mean Corpuscular HGB Conc 31.4 g/dl (32-36); Mean Corpuscular Hemoglobin 28.3 pg (26-34); Mean Corpuscular Volume 90.3 fl (80-100); Nucleated Red Blood Cells Absolute Auto 0.000 K/mm3 (0.0-0.012); Nucleated Red Blood Cells Perc 0.0 % (0.0-0.2); Platelet Count Result 402 k/mm3 (150-375); Red Blood Count 4.34 M/mm3 (4.6-6.20); White Blood Count 10.7 K/mm3 (4.5-10.0)
== END 2025-04-28 10:39 | disposition home or self-care (01) ==
PROVIDERS: PCP Family Medicine; Visit Provider Family Medicine
DX: D64.9 Anemia, unspecified (principal)
CPT/HCPCS: 36415; 85025

== ENCOUNTER 2025-09-19 07:27 | Outpatient (CLI) | payer MEDICARE, SELFPAY ==
--- NOTE | ~2025-09-19 | CT_ITS ---
EXAMINATION: CTA chest PE protocol DATE: 09/19/2025 07:53 INDICATION: Dyspnea, unspecified. TECHNIQUE: Computed tomography angiography (CTA) of the chest was performed with 100 mL Omnipaque-350 intravenous contrast timed to evaluate the pulmonary arteries. Coronal maximum intensity projection 3D-reconstructions were created by the technologist. Automated exposure control and iterative reconstruction technique were employed. The dose-length product was 1007.74 mGy-cm. COMPARISON: Chest CT 04/03/2025 FINDINGS: The lungs demonstrate mild atelectasis. Calcified left lung nodule and calcified left hilar lymph nodes are consistent with old granulomatous disease. No pleural effusion. The heart size is normal. There are coronary artery calcifications. No pericardial effusion. There is no pulmonary embolus. Calcifications in the liver and spleen are consistent with old granulomatous disease. There are bridging endplate osteophytes at multiple levels in the spine, consistent with diffuse idiopathic skeletal hyperostosis (DISH). There is mild thoracic spondylosis. There is mild chronic anterior wedging of multiple vertebral bodies. IMPRESSION: 1. No pulmonary embolus. Reviewed, dictated and finalized at location E. ER INSULATION IMPRESSION: 1. No pulmonary embolus.
== END 2025-09-19 07:28 | disposition home or self-care (01) ==
PROVIDERS: PCP Family Medicine; Visit Provider Physician Assistant
DX: R06.00 Dyspnea, unspecified (principal)
CPT/HCPCS: 71275; Q9967